=== PATIENT | male | born 1955 | race Caucasian/White ===

== ENCOUNTER 2024-06-19 09:43 | Outpatient (AMB) | payer BC, SELFPAY ==
[2024-06-19 10:27] VITALS: BMI 32.3
--- NOTE | 2024-06-19 10:27 | HO.SPINEOV ---
Vital Signs 06/19/24 10:27 Height 5 ft 10 in Weight 225 lb BMI 32.3 Intake Visit Reasons: moderate to severe spinal stenosis/low back Intake Note: Mr. Rock is here today c/o severe back pain. Facility Maintenance Mechanic Required: No Allergies No Known Allergies Allergy (Verified 06/19/24 10:28) Physical Exam Vital Signs: BMI result Body Mass Index 32.3 Assessment & Plan Assessment & Plan (1) Lumbar stenosis with neurogenic claudication: Code(s): M48.062 - Spinal stenosis, lumbar region with neurogenic claudication Category: Medical Plan Dear colleague Thank you for referring Brennon Soto to the office today with a chief complaint of bilateral leg pain. HPI: This 68-year-old male has a history of progressive bilateral leg pain for 3 years. Pain is predominantly on the left leg where it radiates from the back to the front of his thigh and sometimes down to his lower leg and foot. The right side is also affected. The pain is severe with walking and standing and improves when he sits down. Laying down makes the symptoms worse as well. He denies weakness or numbness. The following conservative treatment options were tried without success antiinflammatories, tylenol, physical therapy, acupuncture and cortisone shots PMH: Aortic valve replacement 1 year ago, bladder cancer 18 years ago, hypertension Medications: Aspirin Allergies: NKDA Social history: Nonsmoker. Retired plant mechanic Physical Exam: Pleasant male. He can reproduce the symptoms in the office with standing. The pain radiates from his back to the front of his thighs predominantly. No motor or sensory deficits. Radiological Studies: MRI done at [facility] on 05/30/2024 shows [id number] multilevel spinal stenosis at L2-3, L3-4 and L4-5 causing central and lateral recess stenosis at these levels. Impression/Plan: This 68-year-old male is suffering from neurogenic claudication due to multilevel spinal stenosis. He failed conservative management. The symptoms are interfering with his daily activities. I offered him a decompression of the L2-3, L3-4 and L4-5 levels. He is scheduled for 08/12/2024. He will get preoperative clearance from his guitar repair technician. He will also discontinue aspirin 5 days prior to surgery. Thank you for allowing me to participate in your patients care. total time spent was 50 minutes in counseling ,coordination of plan, personal review of imaging, surgical decision making and subsequent plan Sergio Bejarano MD, PhD Spine Fellowship Trained Neurosurgeon Director, [facility] [place] [facility] Coding Level of Care Code New Pt Level 4 (19717) Diagnoses Lumbar stenosis with neurogenic claudication M48.062
== END 2024-06-19 11:43 | disposition home or self-care (01) ==
PROVIDERS: PCP Internal Medicine; Visit Provider Neurological Surgery
DX: M48.062 Spinal stenosis, lumbar region with neurogenic claudication (principal)
CPT/HCPCS: 99204

== ENCOUNTER 2024-08-12 05:57 | Day surgery (SDC) | payer BC, SELFPAY ==
[2024-07-23 11:15] VITALS: BMI 32.3
--- NOTE | 2024-07-27 14:15 | HO.ANESPROP2 ---
Documented by User: Aria Gauthier NP 07/27/24 14:20 HPI - Anesthesia Eval Consult details Narrative: 69yo M for L2-5 Lumbar decompression Follows [facility] for CAD, s/p TAVR (03/2024). Optimized for surgery per 05/2024 office visit. [facility] Active Problems Active Problems: All Active Problems Lumbar stenosis with neurogenic claudication (Acute) Past Medical History Medical History (Updated 07/23/24 @ 11:15 by Venecia Li RN) Mild ascending aorta dilatation CAD (coronary artery disease) TIA (transient ischemic attack) Elevated cholesterol HTN (hypertension) Gout GERD (gastroesophageal reflux disease) Arthritis Bladder cancer Spinal stenosis Surgical History Surgical History (Updated 07/22/24 @ 09:39 by Venecia Li RN) Hx of cystoscopy History of tonsillectomy and adenoidectomy Hx of cardiac catheterization H/O colonoscopy History of transurethral resection of bladder tumor (TURBT) Hx of aortic valve replacement Social History Social History Are you a primary clinical care coordinator to a significant other at home: No Do you presently have visiting nurse or other home services: No Patient Tobacco Use Status: Former Tobacco user Tobacco use type: Cigarette Years Smoked: 18 Use of substances other than those prescribed or required for medical reasons: Yes Substance Use Type Other:: edibles-advised to hold 3-5 days pre-op Substance Use Frequency: Daily Have you been hit, kicked, punched, or otherwise hurt by someone within the past year? If so, by whom?: No Spiritual Healthcare Practices: none Zoroastrian Healthcare Practices: Amish Cultural Healthcare Practices: none Are you DNR?: No Advance Directives: No ( is primary contact) Advance Directives Information Provided: Yes (as above noted) Advance Directives on File: No Recently lost weight without trying: No Eating poorly because of decreased appetite: No Nutrition Risks: No Nutritional Risk Poor oral hygiene: No Meds Allergies Allergy/AdvReac Type Severity Reaction Status Date / Time No Known Allergies Allergy Verified 06/19/24 10:28 Home Medications ?Medication ?Instructions ?Recorded ?Confirmed ?Last Taken ?Type aspirin 81 mg tablet,delayed 81 mg PO QAM 07/22/24 07/23/24 08/04/24 History release atorvastatin 80 mg tablet 80 mg PO BEDTIME 07/22/24 07/22/24 08/11/24 History chlorthalidone 25 mg tablet 25 mg PO BEDTIME 07/22/24 07/23/24 08/11/24 History diclofenac sodium 25 mg 25 mg PO BID PRN Pain 07/22/24 07/22/24 08/04/24 History tablet,delayed release lisinopril 40 mg tablet 40 mg PO QAM 07/22/24 07/23/24 08/11/24 History omeprazole 20 mg capsule,delayed 20 mg PO BEDTIME 07/22/24 07/23/24 08/11/24 History release Exam Height,Weight and Vital Signs: Height 5 ft 10 in Weight 102.058 kg Pertinent Lab Results Pertinent Lab Results: CBC and BMP 01/2024 from outside facility [place]. BUN/Creat slight elevated @ 27/1.6 Narrative Narrative: EKG 05/2024 NSR Incomplete RBBB LAD ECHO 04/2024 Nml LV size and function EF 60-65% Asc aorta upper limits of nml @ 3.8cm Nml diastolic function Borderline LAE Nml functioning TAVR in aortic position - peak velocity 2.2, mean gradient 11mmHg Assessment and Plan Assessment Anesthesia Assessment: Chart Reviewed Documented by User: Becca Moreno MD 08/12/24 08:08 [facility] Past Medical History Medical History (Updated 07/23/24 @ 11:15 by Venecia Li RN) Mild ascending aorta dilatation CAD (coronary artery disease) TIA (transient ischemic attack) Elevated cholesterol HTN (hypertension) Gout GERD (gastroesophageal reflux disease) Arthritis Bladder cancer Spinal stenosis Family History Family history of problems with anesthesia: No Surgical History Surgical History (Updated 07/22/24 @ 09:39 by Venecia Li RN) Hx of cystoscopy History of tonsillectomy and adenoidectomy Hx of cardiac catheterization H/O colonoscopy History of transurethral resection of bladder tumor (TURBT) Hx of aortic valve replacement History of Problems with Anesthesia: No Social History Social History Are you a primary clinical care coordinator to a significant other at home: No Do you presently have visiting nurse or other home services: No Patient Tobacco Use Status: Former Tobacco user Tobacco use type: Cigarette Years Smoked: 18 Use of substances other than those prescribed or required for medical reasons: Yes Substance Use Type Other:: edibles-advised to hold 3-5 days pre-op Substance Use Frequency: Daily Have you been hit, kicked, punched, or otherwise hurt by someone within the past year? If so, by whom?: No Spiritual Healthcare Practices: none Zoroastrian Healthcare Practices: Amish Cultural Healthcare Practices: none Are you DNR?: No Advance Directives: No ( is primary contact) Advance Directives Information Provided: Yes (as above noted) Advance Directives on File: No Recently lost weight without trying: No Eating poorly because of decreased appetite: No Nutrition Risks: No Nutritional Risk Poor oral hygiene: No Meds Allergies Allergy/AdvReac Type Severity Reaction Status Date / Time No Known Allergies Allergy Verified 06/19/24 10:28 Home Medications ?Medication ?Instructions ?Recorded ?Confirmed ?Last Taken ?Type aspirin 81 mg tablet,delayed 81 mg PO QAM 07/22/24 07/23/24 08/04/24 History release atorvastatin 80 mg tablet 80 mg PO BEDTIME 07/22/24 07/22/24 08/11/24 History chlorthalidone 25 mg tablet 25 mg PO BEDTIME 07/22/24 07/23/24 08/11/24 History diclofenac sodium 25 mg 25 mg PO BID PRN Pain 07/22/24 07/22/24 08/04/24 History tablet,delayed release lisinopril 40 mg tablet 40 mg PO QAM 07/22/24 07/23/24 08/11/24 History omeprazole 20 mg capsule,delayed 20 mg PO BEDTIME 07/22/24 07/23/24 08/11/24 History release Exam Airway Mallampati Class: II (missing a couple teeth, 2 top, 1 bottom laterally) TM Dist: >3cm Neck ROM: Full Heart: rrr Lungs: cta Assessment and Plan Assessment Anesthesia Assessment: Anesthesia Plan Discussed Final Anesthetic Review Family History of Problems with Anesthesia: No History of Problems with Anesthesia: No NPO: Yes ASA Class: III Final Preanesthetic Review: No Changes in Pt Med Stat, Meds/Allgs Chart Reviewed and Consent Obtained/Reviewed Patient Risk: Intermediate Procedure Risk: Intermediate Anesthetic Plan Anesthetic Plan: GA Disposition: Standard PACU
--- NOTE | ~2024-08-12 | FL_ITS ---
EXAMINATION: FL GUIDANCE ONLY HISTORY: l2-5 decompression COMPARISON: None available. TECHNIQUE: Fluoroscopy time: 7.1 seconds. Cumulative Dose: 7.5523 mGy. DAP: 3.2851 mGym2 Images: 2. FINDINGS: Fluoroscopic spot films of the lumbar spine performed in the lateral projection demonstrate probes directed toward the L4-5 and L2-3 levels from posterior approaches. FL/FL guidance in OR IMPRESSION: Fluoroscopy during procedure. Please see procedure report for additional information. Electronically signed by: Hitesh May MD 08/13/2024 08:54 AM QUAN
[2024-08-12] MEDS: methocarbamoL 750 MG TABLET PO (06:18)
[2024-08-12] MEDS: Gabapentin 300 MG CAPSULE PO (06:19)
[2024-08-12 06:33] VITALS: BP 149/85; PULSE 107; RESP 18; TEMP 36.4; O2SAT 96; BMI 31.5
[2024-08-12] MEDS: Lactated Ringers 1,000 ML 100 ML IVCONT (06:33)
--- NOTE | 2024-08-12 07:04 | MHC.SHP ---
Pre-Procedural Eval Section A - 24 Hr Update-Section A only Date of Service: 08/12/24 Section B - Complete if H&P > 30 days Chief Complaint: Spinal stenosis, lumbar region with neurogenic Allergies: Allergies Allergy/AdvReac Type Severity Reaction Status Date / Time No Known Allergies Allergy Verified 06/19/24 10:28 Review of Systems Sugical H&P ROS: Negative: Constitution, Cardiovascular, Respiratory, Neurological, Psychiatric, Hem-Onc, Allergic/Immunologic, Gastrointestinal, Genitourinary, Musculoskeletal, Integumentary, Endocrine and Eyes/Ears/Nose/Throat Exam Surgical H&P Exam: Not Evaluated: HEENT, Not Evaluated: Heart, Not Evaluated: Lungs, Not Evaluated: Extremities, Not Evaluated: Abdomen, Not Evaluated: Skin and Not Evaluated: Neurological Exam Comment: The patient is awake, alert, in no acute distress. Proposed surgical incision site is clean and dry without signs of recent trauma. Plan Diagnosis/Plan: Unchanged I have reviewed the history and physical and performed a pertinent physical examination on my patient. No changes have occurred unless specified. plan remains the same, L2-3, L3-4, L4-5 lumbar decompression Time Spent With Patient Time: Total time managing care of this patient today _15__ minutes.
--- NOTE | 2024-08-12 09:25 | P.OP_ITS ---
Operative Note Operative Note Date of Service: 08/12/24 Narrative: Preoperative Diagnosis: L2-3, L3-4, L4-5 spinal stenosis/lateral recess stenosis/neural foraminal stenosis Operation: L2-3, L3-4 and L4-5 Laminotomy, Partial facetectomy and foraminotomy with use of microscope Consent Informed Consent was obtained for this operation. I have explained the nature, purpose and benefits of the operation. I have discussed the risks and benefit of the operation including possible complications or adverse events with patient/family. Alternative(s) were discussed with the patient with their relative benefits and risks as well as the consequences of not accepting the operation were included in obtaining consent. Surgeon: FLORIN MERAZ MD, PHD Procedure Assisted By: Arturo Stallworth Description of Procedure This 69-year-old male is suffering from bilateral leg pain with the right side is much more affected than the left side. MRI shows moderate stenosis at L2-3, L3-4 and L4-5. The patient was offered a decompression. The procedure complications were explained. The patient was consented. The patient was brought to the operating room and endotracheally intubated. The patient was turned in prone position on the Atif frame. Prep and drape was done followed by timeout. The Physician employment assistant provided access. A mid lumbar incision was made followed by release of the paravertebral muscle on the right side to expose the L2-L5 laminae and facet joints. An intraoperative x-ray was obtained to confirm the correct levels. The microscope was brought in. I took over the procedure. The high-speed drill was used to do a right L4-5 laminotomy until flavum ligament was reached. A #2 Kerrison was used to expand the laminotomy near flush to the pedicles and to include a partial facetectomy. The flavum ligament was opened and resected with a #3 Kerrison to decompress the underlying thecal sac. Large amount of epidural fat was encountered. The flavum ligament was removed to decompress the lateral recess and the exiting L5 nerve root. Patient was turned contralaterally after which the spinous process was undercut in order to decompress the contralateral side. A long nerve hook could be easily passed along the medial side of the pedicles as a sign of adequate decompression. Then attention was turned to the L3-4 level where a similar procedure was performed with similar findings. Again a large amount of epidural fat was encountered. The bilateral L4 nerve roots were decompressed in the lateral recess. Finally the L2-3 level was decompressed. A spondylolisthesis could be palpated. The exiting nerve root was followed and decompressed of his trajectory bilaterally. The microscope was removed. Hemostasis was done. The physician employment assistant close the incision in 2 layers. Steri-Strips were used to approximate incision. An OpSite with Tegaderm was used to cover the incision. All sponge needle counts were correct. Patient was extubated and transported in stable is to recovery room. Anesthesia: General Estimated Blood Loss (ml): 40 mL Complications: None Duration of Surgery: 1 hour 35 Minutes Postoperative Plan: Discharge to home
--- NOTE | 2024-08-12 09:36 | PM.DS ---
DS: Providers Provider Date of Service: 08/12/24 Date of discharge: 08/12/24 Primary care physician: Darwin Montanez MD DS: Summary Time Attestation Discharge Coordination Time (in mins): 14 Quality: Safe Use of Opioids Does Pt have an Active Cancer Diagnosis on the Problem List?: No Quality: Stroke Does the patient have a stroke diagnosis?: No Physical Exam Vital Signs: Vital Signs: Last Vital Signs Temp 97.5 F 08/12/24 06:33 Pulse 107 H 08/12/24 06:33 Resp 18 08/12/24 06:33 BP 149/85 H 08/12/24 06:33 Pulse Ox 96 08/12/24 06:33 O2 Del Method Room Air 08/12/24 06:33 BMI result Body Mass Index 31.5 Discharge Plan Discharge Patient Disposition: Home, Self-Care Referrals: Darwin Montanez MD [Primary Care Provider] - 1 Week Discharge Medications: New oxycodone 5 mg tablet 5 mg PO Q6H PRN (Reason: pain (scale score 7-10)) Qty: 30 0RF Rx Instructions: Partial Fill upon patient request. Continued atorvastatin 80 mg Tablet 80 mg PO BEDTIME chlorthalidone 25 mg Tablet 25 mg PO BEDTIME aspirin 81 mg Tablet,Delayed Release (Dr/Ec) 81 mg PO QAM diclofenac sodium 25 mg Tablet,Delayed Release (Dr/Ec) 25 mg PO BID PRN (Reason: Pain) omeprazole 20 mg Capsule,Delayed Release(Dr/Ec) 20 mg PO BEDTIME lisinopril 40 mg Tablet 40 mg PO QAM Discharge Orders: Discharge Order (Routine); Ordered 08/12/24 Ordered By: Arturo Stanford Diet: Advance to usual diet Activity on Discharge: As tolerated Activity Restrictions/Additional Instructions: After your spinal surgery we ask you to observe the following restrictions/guidelines: Activity: It is normal to feel some discomfort as you increase your activity, but that will improve with time. We ask you avoid heavy lifting or acitivities that cause pain. As a general rule, 8lbs is a safe limit for lifting right after surgery. Walk as much as you feel comfortable but not to exhaustion. You will feel extra tired the first few days after surgery. Stay well hydrated. It is OK to walk up and down stairs You may return to driving when you are off narcotics (such as vicodin, oxycodone, dilaudid, etc), and you are back to normal functional capacity. If you have any concerns please check with office before driving. Return to work is specific to each patient and each surgery, so please speak with your doctor/PA at first follow up. Please bring paperwork such as FMLA at that time if you need it filled out. Medications: We recommend you take 1,000mg Tylenol every 8 hours for the first few weeks after surgery, if you do not have any liver issues and can tolerate this medication. Do not exceed 4,000mg daily. We will give you a short supply of narcotics after surgery (usually one weeks worth). If you need more please call the office but do not use more than prescribed. You will need to give our office 48 hours notice if you need narcotics refilled and we do not fill narcotics on weekends or evenings. If you are on a narcotic, it is a good idea to take a stool softener such as colace or senna to avoid constipation If you take blood thinner such as aspirin, Plavix, Coumadin, Effient, Eliquis etc for conditions such as Afib, DVT, Pulmonary embolus, coronary disease, stents etc please speak with your surgeon about specific details as to when you can resume these medications. You can resume NSAIDs on post op day 1 (eg: Motrin, Naproxen, etc). Follow up: Please call the office, , after surgery to arrange a 3 week follow up for wound check. Wound Care: You may remove your dressing on the first day after surgery. ?You may ?leave open to air. Please do not remove the steri strips underneath. they will fall off on their own in one week. IT IS NORMAL FOR THE WOUND TO OOZE OR BE BLOODY FOR A FEW DAYS AFTER SURGERY. ?IF THIS HAPPENS JUST PLACE NEW DRESSING OVER IT TO AVOID STAINING CLOTHES. You may shower on post op day # 1 We ask that you do not let the water soak the wound. If it does get wet, just towel dry lightly. Please do not scrub your incision or place any type of chemical/ointment on the wound. No tub baths, pools or jacuzzis for one month. If you have any leaking or redness from your wound, or fevers, please call the office. Print Language: [place]er
[2024-08-12 09:43] VITALS: BP 141/78; PULSE 84; RESP 16; TEMP 36.1; O2SAT 97
[2024-08-12 09:45] VITALS: BP 134/77; PULSE 81; RESP 16; O2SAT 96
[2024-08-12 09:50] VITALS: BP 121/68; PULSE 81; RESP 16; O2SAT 96
[2024-08-12 09:55] VITALS: BP 138/73; PULSE 80; RESP 16; O2SAT 96
[2024-08-12 10:10] VITALS: BP 128/77; PULSE 78; RESP 16; TEMP 36.1; O2SAT 94
== END 2024-08-12 11:03 | disposition home or self-care (01) ==
PROVIDERS: PCP Internal Medicine; Visit Provider Neurological Surgery
PROC: (CPT 63047; principal; 2024-08-12 07:30)
DX: M48.062 Spinal stenosis, lumbar region with neurogenic claudication (principal); M79.605 Pain in left leg; M79.604 Pain in right leg; I10 Essential (primary) hypertension; I25.10 Atherosclerotic heart disease of native coronary artery without angina pectoris; E78.5 Hyperlipidemia, unspecified; Z95.2 Presence of prosthetic heart valve; Z85.51 Personal history of malignant neoplasm of bladder; Z92.21 Personal history of antineoplastic chemotherapy; Z92.3 Personal history of irradiation; Z86.73 Personal history of transient ischemic attack (TIA), and cerebral infarction without residual deficits; Z79.82 Long term (current) use of aspirin; Z79.899 Other long term (current) drug therapy; Z87.891 Personal history of nicotine dependence
CPT/HCPCS: 63047; 63048 ×2; J0131; J0690; J1100; J2003; J2250; J2371; J2405; J2704; J3010

== ENCOUNTER → 2024-08-12 05:57 | Outpatient (BNV) | payer BC, SELFPAY | PROVIDERS: PCP Internal Medicine; Visit Provider Neurological Surgery | DX: M48.062 Spinal stenosis, lumbar region with neurogenic claudication (principal) | CPT/HCPCS: 63047; 63048; 99499 ==

== ENCOUNTER 2024-09-04 13:34 | Outpatient (AMB) | payer BC, SELFPAY ==
--- NOTE | 2024-09-04 14:24 | A.SPINEOV_ITS ---
Intake Visit Reasons: 1st post op Intake Note: Mr. Rock is here today for his 1st post op. Climatology Teacher Required: No Allergies No Known Allergies Allergy (Verified 09/04/24 14:25) Assessment & Plan Assessment & Plan (1) Status post lumbar spine surgery for decompression of spinal cord: Code(s): Z98.890 - Other specified postprocedural states Category: Surgical Plan dear colleague, On 09/04/2024, I saw for 1st postoperative visit Brennon Rock. he is status post L2-L5 lumbar decompression 3 weeks ago. His left leg numbness is gone. He initially experienced more right leg pain postoperatively but this is also coming down. He is able to walk longer distances than preoperatively. Overall he is quite satisfied with the current outcome and the fact that he has further improving. On inspection, the incision is healed. I would like to follow-up in 6 weeks for 2nd postoperative visit. Thank you for allowing me take care of your patient. Sergio Bejarano MD, PhD Spine Fellowship Trained Neurosurgeon Director, [facility] [place] [facility] Coding Level of Care Code Global (14478) Diagnoses Status post lumbar spine surgery for decompression of spinal cord Z98.890
== END 2024-09-04 14:41 | disposition home or self-care (01) ==
PROVIDERS: PCP Internal Medicine; Visit Provider Neurological Surgery
DX: Z98.890 Other specified postprocedural states (principal)
CPT/HCPCS: 99024

== ENCOUNTER → 2024-09-04 13:34 | Outpatient (BNVA) | payer BC, SELFPAY | PROVIDERS: PCP Internal Medicine; Visit Provider Neurological Surgery ==

== ENCOUNTER 2024-10-21 10:41 | Outpatient (AMB) | payer BC, SELFPAY ==
--- NOTE | 2024-10-21 10:45 | HO.SPINEOV ---
Intake Visit Reasons: 2nd post op Intake Note: Mr. Rock is here today for his 2nd post op. Apprentice Electrician Required: No Allergies No Known Allergies Allergy (Verified 09/04/24 14:25) Assessment & Plan Assessment & Plan (1) Status post lumbar spine surgery for decompression of spinal cord: Code(s): Z98.890 - Other specified postprocedural states Category: Surgical Plan: Dear colleague, On 10/21/2024, I saw for 2nd postoperative visit Brennon Rock. He underwent an L2-3, L3-4 and L4-5 lumbar decompression through a right side approach in August of this year. Postoperatively, the left-sided leg pain disappeared but he continues to have pain in his right groin anterior thigh and knee with sometimes his leg giving out of him. The symptoms are better than preoperatively but still preventing him from doing activities such as walking for prolonged period of times. I think it would be best to order a postop MRI with contrast to see if there was ongoing right-sided compression of the L4 or L5 nerve root. The patient will return after the MRIs done. Thank you for allowing me take care of your patient. Sergio Bejarano MD, PhD Spine Fellowship Trained Neurosurgeon Director, [facility] [place] [facility] (2) Lumbar stenosis with neurogenic claudication: Code(s): M48.062 - Spinal stenosis, lumbar region with neurogenic claudication Category: Medical Plan c Orders: Orders MR lumbar spine wo/w con Today M48.062 - Spinal stenosis, lumbar region with neurogenic claudication, Z98.890 - Other specified postprocedural states Coding Level of Care Code Global (91741) Diagnoses Status post lumbar spine surgery for decompression of spinal cord Z98.890 Lumbar stenosis with neurogenic claudication M48.062
== END 2024-10-21 11:27 | disposition home or self-care (01) ==
LOC: HO.HNS 10:41
PROVIDERS: PCP Internal Medicine; Visit Provider Neurological Surgery
DX: Z98.890 Other specified postprocedural states (principal); M48.062 Spinal stenosis, lumbar region with neurogenic claudication
CPT/HCPCS: 99024

== ENCOUNTER → 2024-10-21 10:41 | Outpatient (BNVA) | payer BC, SELFPAY | PROVIDERS: PCP Internal Medicine; Visit Provider Neurological Surgery ==

== ENCOUNTER → 2024-10-30 10:48 | Outpatient (BNV) | payer BC, SELFPAY | PROVIDERS: Visit Provider Radiology Diagnostic Radiology | DX: M47.816 Spondylosis without myelopathy or radiculopathy, lumbar region (principal) | CPT/HCPCS: 72158 ==

== ENCOUNTER 2024-10-30 10:51 | Outpatient (REF) | payer BC, SELFPAY ==
--- NOTE | ~2024-10-30 | MR_ITS ---
EXAMINATION: MR LUMBAR SPINE WITH AND WITHOUT CONTRAST CLINICAL INFORMATION: Other specified postprocedural states. Decompression surgery in August, persistent symptoms right greater than left sciatica/radiculopathy. COMPARISON: MRI from outside institution [facility] 05/30/2024. TECHNIQUE: Multiplanar multisequence MR imaging of the lumbar spine was done both before and after the administration of 10 mL IV Gadavist. Examination was performed on a 1.5 Dian Siemens magnet, utilizing standard sequences. FINDINGS: -There has been interval right hemilaminotomies and microdiscectomies at L2-3, L3-4, and L4-5, with expected postsurgical enhancement in the laminotomy sites and along the right paraspinous soft tissues. -Beginning at the superior endplate of L3, there is circumferential dural enhancement and mild thickening, spanning to the inferior endplate of L4, with ventral epidural enhancement spanning L5-S1. -There is a fluid collection in the midline dorsal epidural space L3-4 level, in communication with the right hemilaminotomy at L3-4, with the peripherally enhancing fluid collection measuring 0.9 x 1.0 x 1.8 cm (AP, TRV, CC) (series 13, image 10; series 12, image 33). This is consistent with an epidural abscess. This is resulting in moderate to severe central canal stenosis. See below. CORONAL ALIGNMENT: -Normal. SAGITTAL ALIGNMENT: -Straightening of the normal lordosis. -2 mm degenerative type anterolisthesis of L1 on L2. -4 mm degenerative type retrolisthesis L2 on L3. -Trace degenerative anterolisthesis L4 on L5. -Alignment is otherwise anatomic. LUMBOSACRAL JUNCTION: -Normal. There are 5 ovk-xct-kgywunc lumbar-type vertebral bodies. VERTEBRAL BODIES/BONE MARROW: -Postoperative changes as discussed above. -Minimal edematous endplate changes at L2-3 with intermixed fatty endplate change. -Mild edematous endplate changes present oriented to the right at L4-5 and L5-S1, degenerative in appearance. Prominent fatty type endplate changes at L4-5. -No compression deformities. There are scattered Schmorl's nodes in the endplates. -No abnormal endplate enhancement. DISCS: -No abnormal disc enhancement or high signal identified. -Severe loss of disc height and signal at L2-3, L4-5, and L5-S1. -Moderate loss at L1-2, and mild loss at L3-4. SPINAL CANAL: -No abnormal developmental findings. CONUS MEDULLARIS: -Terminates at inferior endplate of L1. Morphology and signal is normal. INTRADURAL NERVE ROOTS: - No abnormal intradural nerve root enhancement identified. -Dorsal epidural 0.9 x 1.0 x 1.8 cm peripherally enhancing abscess suspected at L3-4 as discussed above. -Beginning at the superior endplate of L3, there is circumferential dural enhancement and mild thickening, spanning to the inferior endplate of L4, with ventral epidural enhancement spanning L5-S1. No additional epidural abscess identified. Axial Disc Space Images: T12-L1: No central canal narrowing. Mild to moderate facet arthropathy bilaterally. No neural foraminal narrowing. L1-L2: Shallow concentric disc bulge is present, with moderate bilateral left greater than right hypertrophic degenerative facet changes. There is mild central canal stenosis, mild bilateral subarticular recess stenosis, and mild right greater than left neural foraminal stenosis. L2-L3: Right hemilaminotomy with enhancing soft tissue in the laminotomy defect. There is an concentric broad-based disc osteophytic ridge complex present, with severe disc degeneration and associated 4 mm of retrolisthesis at this level. There are moderate hypertrophic degenerative facet changes bilaterally. Despite the surgical changes, there is moderate central canal stenosis present, severe bilateral subarticular recess stenosis, and severe bilateral neural foraminal impingement. L3-L4: Right hemilaminotomy with enhancing dorsal fluid collection in the midline connecting with the laminotomy defect. This is resulting in severe compression of the central thecal sac, just below the disc level. There is severe central canal stenosis at the disc level. There is severe bilateral subarticular recess encroachment. There is moderate to severe bilateral neural foraminal encroachment. L4-L5: Right hemilaminotomy with enhancing soft tissue in the laminotomy defect. Concentric disc osteophytic ridge complex present, with moderate to severe hypertrophic degenerative facet arthropathy, and resultant moderate to severe central canal stenosis, severe bilateral subarticular recess stenosis, and severe bilateral neural foraminal impingement. L5-S1: Shallow disc osteophytic ridge complex present, with mild to moderate hypertrophic degenerative facet changes bilaterally. There is mild posterior ligamentous infolding. There is mild central canal stenosis, mild bilateral subarticular recess stenosis, and severe bilateral neural foraminal impingement. IMAGED SI JOINTS: -Moderate degenerative arthrosis bilaterally with partial ankylosis of the left SI joint. PARAVERTEBRAL AND INCLUDED EXTRASPINAL SOFT TISSUES: -Postoperative enhancement and edema in the right paraspinous soft tissues at L2-3, L3-4, L4-5. -No additional abnormal fluid collection. MR/MR lumbar spine wo/w con IMPRESSION: 1. Interval right hemilaminotomies and microdiscectomies at L2-3, L3-4, and L4-5. Associated enhancement and edema along the surgical tracts. 2. There is a dorsal midline epidural abscess at L3-4, communicating with the right hemilaminotomy, measuring 0.9 x 1.0 x 1.8 cm, with peripheral enhancement. This is resulting in moderate to severe central canal stenosis at this level. 3. There is abnormal dural thickening and enhancement beginning at the superior endplate of L3, and terminating at the inferior endplate of L4. 4. There is no definite MR evidence of developing discitis. There is no additional epidural fluid collection. There is no abnormal nerve root enhancement. 5. Multilevel advanced spondylosis as described above. Above findings relayed to Dr. Bejarano via secure text at 9:01 AM, 11/03/2024, with findings understood. Electronically signed by: Jaleel Liang MD 11/03/2024 09:20 AM EDT
[2024-10-30] MEDS: gadobutroL 10 ML VIAL IVPUSH (11:55)
== END 2024-10-30 10:52 | disposition home or self-care (01) ==
LOC: HO.MRI 10:51
PROVIDERS: Visit Provider Neurological Surgery
DX: M48.062 Spinal stenosis, lumbar region with neurogenic claudication (principal); Z98.890 Other specified postprocedural states
CPT/HCPCS: 72158; A9585

== ENCOUNTER 2024-11-20 14:58 | Outpatient (AMB) | payer BC, SELFPAY ==
--- NOTE | 2024-11-20 15:37 | A.SPINEOV_ITS ---
Intake Visit Reasons: Discuss results of MRI Intake Note: Mr. Rock is here today to discuss result of his MRI. 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 He is status post 3 level lumbar decompression L2-3, L3-4 and L4-5 on 08/12/2024. His left-sided leg symptoms completely disappeared. His right leg symptoms significantly improved but remained bothersome, especially the right groin. He states that his symptoms have further improved since the last time I saw him. He does intermittently have radiation down both posterior buttocks and thighs. We decided to repeat the MRI of the lumbar spine due to the ongoing right-sided symptoms. The MRI report mentioned that it is suspicious for an epidural abscess L3-4. The patient clinical progression is absolutely not suspicious for an epidural abscess. The MRI shows severe compression of the spinal canal due to a cystic type process. I would not be surprised if this is representing a large synovial cyst. We had a long discussion of what the next steps would be. The best plan in my opinion would be to schedule him for a re-exploration L3-4 to remove the extradural epidural mass after confirming with a repeat MRI that the size of the abnormality has not decreased. The goal of surgery would be to determine the etiology of the lesion and to further improve his ongoing symptoms. The surgery will be scheduled for 12/31/2024 and we will order an MRI 1 week prior to the procedure to determine if the surgery is necessary. I spent 30 minutes in his consult to review imaging and discussing plan of care. Orders: Orders MR lumbar spine wo/w con 12/24/24 G95.89 - Other specified diseases of spinal cord, Z98.890 - Other specified postprocedural states Coding Level of Care Code Est Pt Level 4 (61303) Diagnoses Lumbar epidural mass G95.89 Lumbar stenosis with neurogenic claudication M48.062
== END 2024-11-20 16:05 | disposition home or self-care (01) ==
LOC: HO.HNS 14:58
PROVIDERS: Visit Provider Neurological Surgery
DX: G95.89 Other specified diseases of spinal cord (principal); M48.062 Spinal stenosis, lumbar region with neurogenic claudication
CPT/HCPCS: 99214

== ENCOUNTER → 2024-11-20 14:58 | Outpatient (BNVA) | payer BC, SELFPAY | PROVIDERS: Visit Provider Neurological Surgery ==

== ENCOUNTER → 2024-12-24 10:21 | Outpatient (BNV) | payer BC, SELFPAY | PROVIDERS: Visit Provider Radiology Diagnostic Radiology | DX: M48.061 Spinal stenosis, lumbar region without neurogenic claudication (principal) | CPT/HCPCS: 72158 ==

== ENCOUNTER 2024-12-24 10:28 | Outpatient (REF) | payer BC, SELFPAY ==
--- NOTE | ~2024-12-24 | MR_ITS ---
EXAMINATION: MR LUMBAR SPINE WITH AND WITHOUT CONTRAST CLINICAL INFORMATION: Other specified diseases of spinal cord. Decompression surgery in August, persistent symptoms right greater than left sciatica/radiculopathy. Epidural mass/cyst probable synovial cyst on the right at L3-4. COMPARISON: MRI lumbar with contrast 10/30/2024. MRI from outside institution [facility] 05/30/2024. TECHNIQUE: Multiplanar multisequence MR imaging of the lumbar spine was done both before and after the administration of 10 mL IV Gadavist. Examination was performed on a 1.5 Dian Siemens magnet, utilizing standard sequences. FINDINGS: -Redemonstration of right hemilaminotomies and microdiscectomies at L2-3, L3-4, and L4-5, with expected postsurgical enhancement in the laminotomy sites and along the right paraspinous soft tissues. -Previously seen circumferential epidural enhancement has near completely resolved. Most likely postoperative. -There is a persistent fluid collection in the right paramedian dorsal epidural space L3-4 level, in communication with the right hemilaminotomy at L3-4, with the peripherally enhancing fluid collection again measuring 0.9 x 1.0 x 1.8 cm (AP, TRV, CC) (series 13, image 10; series 12, image 33). This was previously thought to represent a postoperative abscess although given clinical presentation is more likely a synovial cyst. -There is a smaller right-sided synovial cyst at L4-5, measuring approximately 4 x 2 x 4 mm. (Series 10, image 29; series 6, image 10). CORONAL ALIGNMENT: -Normal. SAGITTAL ALIGNMENT: -Straightening of the normal lordosis. -Stable 2 mm degenerative type anterolisthesis of L1 on L2. -Stable 4 mm degenerative type retrolisthesis L2 on L3. -Stable Trace degenerative anterolisthesis L4 on L5. -Alignment is otherwise anatomic. LUMBOSACRAL JUNCTION: -Normal. There are 5 nbq-ssf-gwlmmpl lumbar-type vertebral bodies. VERTEBRAL BODIES/BONE MARROW: -Postoperative changes as discussed above. -Similar minimal edematous endplate changes at L2-3 with intermixed fatty endplate change. -Cyst similar mild edematous endplate changes present oriented to the right at L4-5 and L5-S1, degenerative in appearance. Prominent fatty type endplate changes at L4-5. -No compression deformities. There are scattered Schmorl's nodes in the endplates. -No abnormal endplate enhancement. DISCS: -No abnormal disc enhancement or high signal identified. -Severe loss of disc height and signal at L2-3, L4-5, and L5-S1. -Moderate loss at L1-2, and mild loss at L3-4. SPINAL CANAL: -No abnormal developmental findings. CONUS MEDULLARIS: -Terminates at inferior endplate of L1. Morphology and signal is normal. INTRADURAL NERVE ROOTS: - No abnormal intradural nerve root enhancement identified. -Dorsal epidural 0.9 x 1.0 x 1.8 cm peripherally enhancing abscess suspected at L3-4 as discussed above. -Beginning at the superior endplate of L3, there is circumferential dural enhancement and mild thickening, spanning to the inferior endplate of L4, with ventral epidural enhancement spanning L5-S1. No additional epidural abscess identified. Axial Disc Space Images: T12-L1: No central canal narrowing. Mild to moderate facet arthropathy bilaterally. No neural foraminal narrowing. No significant changes. L1-L2: Shallow concentric disc bulge is present, with moderate bilateral left greater than right hypertrophic degenerative facet changes. There is mild central canal stenosis, mild bilateral subarticular recess stenosis, and mild right greater than left neural foraminal stenosis. No significant changes. L2-L3: Right hemilaminotomy with enhancing soft tissue in the laminotomy defect. There is an concentric broad-based disc osteophytic ridge complex present, with severe disc degeneration and associated 4 mm of retrolisthesis at this level. There are moderate hypertrophic degenerative facet changes bilaterally. Despite the surgical changes, there is moderate central canal stenosis present, severe bilateral subarticular recess stenosis, and severe bilateral neural foraminal impingement. No significant changes. L3-L4: Right hemilaminotomy with enhancing dorsal fluid collection/synovial cyst in the right para midline, in continuity with the laminotomy defect. This is resulting in severe compression of the central thecal sac, just below the disc level. There is severe central canal stenosis at the disc level. There is severe bilateral subarticular recess encroachment. There is moderate to severe bilateral neural foraminal encroachment. No significant changes. L4-L5: Right hemilaminotomy with enhancing soft tissue in the laminotomy defect. Small peripherally enhancing 2 x 4 x 2 mm right synovial cyst, appearing larger than previously. Concentric disc osteophytic ridge complex present, with moderate to severe hypertrophic degenerative facet arthropathy, and resultant moderate to severe central canal stenosis, severe bilateral subarticular recess stenosis, and severe bilateral neural foraminal impingement. L5-S1: Shallow disc osteophytic ridge complex present, with mild to moderate hypertrophic degenerative facet changes bilaterally. There is mild posterior ligamentous infolding. There is mild central canal stenosis, mild bilateral subarticular recess stenosis, and severe bilateral neural foraminal impingement. IMAGED SI JOINTS: -Moderate degenerative arthrosis bilaterally with partial ankylosis of the left SI joint. PARAVERTEBRAL AND INCLUDED EXTRASPINAL SOFT TISSUES: -Postoperative enhancement and edema in the right paraspinous soft tissues at L2-3, L3-4, L4-5. -No additional abnormal fluid collection. MR/MR lumbar spine wo/w con IMPRESSION: 1. Redemonstration of right hemilaminotomies and microdiscectomies at L2-3, L3-4, and L4-5. Associated enhancement and edema along the surgical tracts. 2. There is a dorsal midline persistent cystic collection at L3-4, communicating with the right hemilaminotomy, measuring 0.9 x 1.0 x 1.8 cm, with peripheral enhancement. This is resulting in moderate to severe central canal stenosis at this level. Given stability this is likely a synovial cyst as opposed to an abscess. 3. There is a slightly larger more apparent right sided synovial cyst at L4-5 measuring 4 x 2 x 4 mm. There is moderate to severe central canal stenosis and severe bilateral subarticular recess stenosis at this level. 4. Previously seen abnormal circumferential dural enhancement spanning L3-L4 has largely resolved. This was presumably postoperative. 5. Otherwise stable multilevel advanced spondylosis as described above. Electronically signed by: Jaleel Liang MD 12/24/2024 02:00 PM EDT
[2024-12-24] MEDS: gadobutroL 10 ML VIAL IVPUSH (12:00)
== END 2024-12-24 10:29 | disposition home or self-care (01) ==
LOC: HO.MRI 10:28
PROVIDERS: Visit Provider Neurological Surgery
DX: G95.89 Other specified diseases of spinal cord (principal); Z98.890 Other specified postprocedural states
CPT/HCPCS: 72158; A9585

== ENCOUNTER 2025-03-03 13:41 | Outpatient (AMB) | payer BC, SELFPAY ==
--- NOTE | 2025-03-03 14:00 | A.SPINEOV_ITS ---
Intake Visit Reasons: Discuss Surgery Intake Note: Mr. Rock is here today to discuss surgery. Allergies No Known Allergies Allergy (Verified 09/04/24 14:25) Assessment & Plan Assessment & Plan (1) Lumbar epidural mass: Code(s): G95.89 - Other specified diseases of spinal cord Category: Medical Plan Brennon comes in today for a follow-up visit with questions regarding his upcoming surgery. To recap he is scheduled for an L3-4 lumbar decompression with removal / exploration of likely synovial cyst on 03/24/25. He reports that he had fairly significant difficulties with ambulation after his last decompression surgery, in his concerned that he may have difficulties once more after surgery. He wished to discuss this. I answered all questions that he had to the best of my ability, and provided him with information regarding the postoperative healing course. He understands that he likely will need about 3 weeks off of activity aside from basic ADLs and walking as he heals from his upcoming surgery. In addition to this, he wished to review his lumbar MRI again and see what the cyst looks like. He asked several questions regarding the adjacent segments, and questioned whether or not he needed larger/different surgery. Given the overall size of the assumed synovial cyst measured at about 18 mm on MRI imaging, I believe this is most likely causative of his current pain. When describing his pain he states that his left posterior buttocks is sore and he still has some left-sided posterior leg pain. He also has bilateral shooting pains into his groin. The patient has been given risk and benefits of surgery including but not limited to infection, hematoma, nerve injury, durotomy, weakness, bowel/bladder injury, persistent pain. We also discussed the option to continue with conservative treatment and patient wishes to proceed with surgery. They are aware they should stop NSAIDs 7 days prior to surgery. All questions were answered to the best of our ability. If there is anything about this patients medical history that we have overlooked or concerns you have about us proceeding with surgery we would appreciate any input you can offer. Arturo Bejarano MD,PhD [facility] Coding Level of Care Code Global (18269) Diagnoses Lumbar epidural mass G95.89
--- OUTSIDE RECORDS SUMMARY | 2025-03-03 14:30 | XMS_ITS | Encounter Summary ---
Author Organization [facility] Address [address] [place] [id number] Phone Care Team Providers Care Assistant Professor Of Music Name Role Phone Yoli Murray COOLING PAN TENDER Unavailable [phone] Aaliyah Garg DECORATING CONSULTANT Unavailable [phone] Darwin Montanez MD Unavailable [phone] Jaden oBles MD Unavailable Unavailable Darwin Montanez MD Primary Care Provider [phone] Darwin Montanez MD Unavailable [phone] Nitza Lopez RN Unavailable [phone] Encounter Details Date Type Department Care Team (Late st Contact Info) Description 01/30/2019 Procedure Pass [address] [address] Social History Tobacco Use Types Packs/Day Years Used Date Smoking Tobacco: Never Smokeless Tobacco: Never Alcohol Use Standard Drinks/Week Comments Yes 5 (1 standard drink = 0.6 oz pur e alcohol) Sex and Gender Information Value Date Recorded Sex Assigned at Male 05/27/2020 11:04 AM EST Legal Sex Male 9:58 PM EDT Gender Identity Male 05/27/2020 11:04 AM EST Sexual Orientation Not on file documented as of this encounter Plan of Treatment Upcoming Encounters Date Type Department Care Team (Late st Contact Info) Description 05/22/2024 Procedure Pass [facility] [address] [place] [place] [address] 06/01/2025 9:30 AM EST Appointment [facility] [address] [place] [address] Castillo Valles MD [address] [place] [address] 06/18/2025 10:00 AM EST Office Visit [facility] [address] Floor, [address] [place] [address] Castillo Valles MD [address] [place] [address] 12/01/2025 3:40 PM EDT Office Visit [facility] [address] [place] [phone] Darwin Montanez MD [address] [place] [phone] documented as of this encounter Visit Diagnoses Not on filedocumented in this encounter Additional Health Concerns Infection Onset Date Last Indicated Resolved Time CoV-Risk 03/08/2020 03/09/2020 03/22/2020 1:24 AM EDT documented as of this encounter Care Teams Assistant Professor Of Music Relationship Specialty Start Date End Date Darwin Montanez MD [address] [place] [phone] PCP - General 04/23/17 Yoli Murray NP [address] [place] [phone] Historical LMR Provider 04/22/17 Aaliyah Garg, DECORATING CONSULTANT [address] [place] [id number] Historical LMR Provider 04/22/17 Darwin Montanez MD [address] [place] [address] [place] [address] [email or web address] Historical LMR Provider 04/22/17 Jaden Boles MD Historical LMR Provider 04/22/17 07/15/21 Darwin Montanez MD [address] [place] [address] [place] [phone] [email or web address] Insurance Assigned Provider 10/12/23 Nitza Lopez, RN [address] [place] [address] [email or web address] Lease Picker 02/18/24 03/25/24 documented as of this encounter Additional Source Comments The information contained in this document represents components of the legal health record. It is not the complete legal health record.[facility]
--- OUTSIDE RECORDS SUMMARY | 2025-03-03 14:30 | XMS_ITS | Encounter Summary ---
Author Organization [facility] Address [address] [place] [address] Phone Care Team Providers Care Delivery Driver/Supervisor Name Role Phone Yoli Murray ELECTRIC METER TESTER Unavailable [phone] Aaliyah Garg FRANKFURTER INSPECTOR Unavailable + [phone] Darwin Montanez MD Unavailable [phone] Jaden Boles MD Unavailable Unavailable Darwin Montanez MD Primary Care Provider [phone] Darwin Montanez MD Unavailable [phone] Nitza Lopez RN Unavailable [phone] Reason for Referral * MRI/CAT Scan - Closed Specialty Diagnoses / Procedures Referred By Chaya montez Referred To Contact Radiology Diagnoses Lumbar radiculopathy Procedures MRI Lumbar Spine Santos Lee DO Phone: tel: fax: [email or web address] Referral ID Status Reason Start Date Expiration Date Visits Re quested Visits Authorized [id number] Closed 01/29/2019 02/28/2019 1 1 Encounter Details Date Type Department Care Team (Latest Contact Info) Description 01/30/2019 Ancillary Orders Virtual Department [address] [place] [address] Santos Lee DO [address] [place] [address] [email or web address] Social History Tobacco Use Types Packs/Day Years [...] Info) Description 05/22/2024 Procedure Pass [facility] [address] [place] [address] 06/01/2025 9:30 AM EST Appointment Echo Lab [address] [place] [address] Castillo Valles MD [address] [place] [address] 06/18/2025 10:00 AM EST Office Visit [facility] [address] 3[address] Floor, [address] [place] [address] Castillo Valles MD [address] [place] [address] 12/01/2025 3:40 PM EDT Office Visit [facility] 14 [facility] [address] [place] [address] Darwin Montanez MD 14 [facility] [address] [place] [address] documented as of this encounter Results * MRI LUMBAR SPINE (BONE) WITHOUT CONTRAST (02/09/2019 6:33 PM EDT) Anatomical Region Laterality Modality L-spine Magnetic Resonan ce 02/09/2019 6:35 PM EDT Impressions 02/09/2019 7:01 PM EDT 1. Multilevel degenerative changes as described above. Moderate canal stenosis at L2-L3, L3-L4 and L4-L5. Moderate/severe neuroforaminal stenosis on the left at L5-S1. Moderate neuroforaminal stenosis bilaterally at L2-L3, on the right at L3-L4 and bilaterally at L4-L5. 2. 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 POS - [id number] Narrative 02/09/2019 7:01 PM EDT EXAM: MRI LUMBAR SPINE (BONE) WITHOUT INTRAVENOUS CONTRAST COMPARISON: Radiographs of the lumbar spine on December 03, 2018. Abdomen/pelvis CT on August 16, 2011 HISTORY: Lumbar radiculopathy TECHNIQUE: Exam performed on a 1.5 Dian high-field MRI scanner. Magnetic resonance imaging of the lumbar spine was performed WITHOUT injected contrast using standard department protocols. Sagittal T1, T2 and STIR, axial T1 and T2 sequences were obtained. FINDINGS: ALIGNMENT: Anatomic alignment is maintained. Mild retrolisthesis of L2 over L3. Minimal retrolisthesis of L5 on S1. VERTEBRAL BODIES: Vertebral body heights are maintained. T1 and T2 hyperintense signal involving most of the L5 vertebral body is partially suppressed on the STIR sequence. Mild endplate degenerative changes in the superior endplate of L3 and superior and inferior endplates of L4. INTERVERTEBRAL DISCS: Desiccation changes of all included discs. Loss of disc height is more prominent at L2-L3 and L5-S1. SPINAL CORD/CONUS: Included spinal cord has normal caliber and signal characteristics. The conus terminates normally at L1-L2. Level by level analysis yields the following: L1-2: Mild bulging disc. No significant canal or neuroforaminal stenosis. L2-3: Mild retrolisthesis of L2 on L3 and prominent bulging disc and superimposed central disc protrusion contributes to moderate bilateral neuroforaminal stenosis and moderate canal stenosis. L3-4: Combination of bulging disc eccentric to the left side, hypertrophy of posterior elements and epidural lipomatosis contributes to moderate right neuroforaminal stenosis, mild left neuroforaminal stenosis and moderate canal stenosis. L4-5: Combination of bulging disc, hypertrophy of posterior elements and epidural lipomatosis contributes to moderate canal stenosis and moderate bilateral neuroforaminal stenosis. L5-S1: Combination of minimal retrolisthesis of L5 on S1, marginal osteophytes and bulging disc eccentric to the left side and hypertrophy of posterior elements contributes to moderate/severe left neuroforaminal stenosis and mild right neuroforaminal stenosis. Bulging disc contacts the left L5 traversing nerve root at the level of the neuroforamina. No significant canal stenosis. OTHERS:Visualized portions of the retroperitoneal structures shows partially evaluated right parapelvic renal lesion. Posterior paraspinal soft tissues are unremarkable. Procedure Note Constantino Ruiz MD - 02/09/2019 EXAM: MRI LUMBAR SPINE (BONE) WITHOUT INTRAVENOUS CONTRAST COMPARISON: Radiographs of the lumbar spine on December 03, 2018.Abdomen/pelvis CT on August 16, 2011 HISTORY: Lumbar radiculopathy TECHNIQUE: Exam performed on a 1.5 Dian high-field MRI scanner. Magneticresonance imaging of the lumbar spine was performed WITHOUT injectedcontrast using standard department protocols. Sagittal T1, T2 and STIR,axial T1 and T2 sequences were obtained. FINDINGS: ALIGNMENT: Anatomic alignment is maintained. Mild retrolisthesis of L2over L3. Minimal retrolisthesis of L5 on S1. VERTEBRAL BODIES: Vertebral body heights are maintained. T1 and R1jnpqnqorwlrd signal involving most of the L5 vertebral body is partiallysuppressed on the STIR sequence. Mild endplate degenerative changes inthe superior endplate of L3 and superior and inferior endplates of L4. INTERVERTEBRAL DISCS: Desiccation changes of all included discs. Loss ofdisc height is more prominent at L2-L3 and L5-S1. SPINAL CORD/CONUS: Included spinal cord has normal caliber and signalcharacteristics. The conus terminates normally at L1-L2. Level by level analysis yields the following: L1-2: Mild bulging disc. No significant canal or neuroforaminalstenosis. L2-3: Mild retrolisthesis of L2 on L3 and prominent bulging disc andsuperimposed central disc protrusion contributes to moderate bilateralneuroforaminal stenosis and moderate canal stenosis. L3-4: Combination of bulging disc eccentric to the left side, hypertrophyof posterior elements and epidural lipomatosis contributes to moderateright neuroforaminal stenosis, mild left neuroforaminal stenosis andmoderate canal stenosis. L4-5: Combination of bulging disc, hypertrophy of posterior elements andepidural lipomatosis contributes to moderate canal stenosis and moderatebilateral neuroforaminal stenosis. L5-S1: Combination of minimal retrolisthesis of L5 on S1, marginalosteophytes and bulging disc eccentric to the left side and hypertrophy ofposterior elements contributes to moderate/severe left neuroforaminalstenosis and mild right neuroforaminal stenosis. Bulging disc contacts theleft L5 traversing nerve root at the level of the neuroforamina. Nosignificant canal stenosis. OTHERS:Visualized portions of the retroperitoneal structures showspartially evaluated right parapelvic renal lesion. Posterior paraspinalsoft tissues are unremarkable. IMPRESSION: 1. Multilevel degenerative changes as described above. Moderate canalstenosis at L2-L3, L3-L4 and L4-L5. Moderate/severe neuroforaminalstenosis on the left at L5-S1. Moderate neuroforaminal stenosisbilaterally at L2-L3, on the right at L3-L4 and bilaterally at L4-L5. 2. Abnormal signal intensity of L5 vertebral body likely represents anatypical hemangioma, which was also demonstrated in the prior CT study [id number]. POS - [id number] Santos Lee DO IMG MR XSPECIALTY Final Resu lt documented in this encounter Visit Diagnoses Diagnosis Lumbar radiculopathy Thoracic or lumbosacral neuritis or radiculitis, unspecified Lumbar radiculopathy Thoracic or lumbosacral neuritis or radiculitis, unspecified documented in this encounter Additional Health Concerns Infection Onset Date Last Indicated Resolved Time CoV-Risk 03/08/2020 03/09/2020 03/22/2020 1:24 AM EDT documented as of this encounter Care Teams Delivery Driver/Supervisor Relationship Specialty Start Date End Date Darwin Montanez MD [address] [place] [address] [address] [place] [address] [email or web address] PCP - General 04/23/17 Yoli Murray NP [address] [place] [address] [place] [address] Historical LMR Provider 04/22/17 Aaliyah Garg CNP [address] [place] [address] [place] [address] Historical LMR Provider 04/22/17 Darwin Montanez MD [address] [place] [address] [place] [address] Historical LMR Provider 04/22/17 Jaden Boles MD Historical LMR Provider 04/22/17 07/15/21 Darwin Montanez MD [address] [place] [address] Insurance Assigned Provider 10/12/23 Nitza Lopez RN [address] [place] [address] [email or web address] i[employer] Dbas 02/18/24 03/25/24 documented as of this encounter Additional Source Comments The information contained in this document represents components of the legal health record. It is not the complete legal health record.[facility]
--- OUTSIDE RECORDS SUMMARY | 2025-03-03 14:31 | XMS_ITS | Encounter Summary ---
Author Organization [facility] Address [address] [place] [address] Phone Care Team Providers Care Cement Production Plant Operator Name Role Phone Yoli Murray CHILD PROTECTIVE SERVICES SPECIALIST Unavailable [phone] Aaliyah Garg PREVENTIVE MAINTENANCE COORDINATOR Unavailable [phone] Darwin Montanez MD Unavailable [phone] Darwin Montanez MD Primary Care Provider [phone] Darwin Montanez MD Unavailable [phone] Nitza Lopez RN Unavailable [phone] Encounter Details Date Type Department Care Team (Late st Contact Info) Description 02/13/2022 Procedure Pass [facility], [address] [address] Social History Tobacco Use Types Packs/Day Years [...] Info) Description 05/22/2024 Procedure Pass [facility] [address] [place] [address] 06/01/2025 9:30 AM EST Appointment Echo [facility] [address] [place] [address] Castillo Valles MD [address] [place] [address] 06/18/2025 10:00 AM EST Office Visit [facility] [address] Floor, [address] [place] [address] Castillo Valles MD [address] [place] [address] 12/01/2025 3:40 PM EDT Office Visit [facility] [address] [place] [address] Darwin Montanez MD [address] [place] [address] documented as of this encounter Visit Diagnoses Not on filedocumented in this encounter Additional Health Concerns Assessment Noted Time PHQ-2 Depression Total Score: 1 07/06/20 19 2:52 PM EST documented as of this encounter Care Teams Cement Production Plant Operator Relationship Specialty Start Date End Date Darwin Montanez MD [address] [place] [address] PCP - General 04/23/17 Yoli Murray NP [address] [place] [address] Historical LMR Provider 04/22/17 Aaliyah Garg, MATILDE [address] [place] [address] Historical LMR Provider 04/22/17 Darwin Montanez MD 14 [facility] [address] [place] [address] [email or web address] Historical LMR Provider 04/22/17 Darwin Montanez MD [address] [place] [address] [place] [address] Insurance Assigned Provider 10/12/23 Nitza Lopez, RN [address] [place] [address] [email or web address] iC[employer] Passenger Solicitor 02/18/24 03/25/24 documented as of this encounter Additional Source Comments The information contained in this document represents components of the legal health record. It is not the complete legal health record.[facility]
--- OUTSIDE RECORDS SUMMARY | 2025-03-03 14:31 | XMS_ITS | Encounter Summary ---
Author Organization [facility] Address [address] [place] [address] Phone Care Team Providers Care Energy Trader Name Role Phone Yoli Murray MEDICAL CERTIFICATION SPECIALIST Unavailable [phone] Aaliyah Garg CRAWLER DRAGLINE OPERATOR Unavailable [phone] Darwin Montanez MD Unavailable [phone] Jaden Boles MD Unavailable Unavailable Darwin Montanez MD Primary Care Provider [phone] Darwin Montanez MD Unavailable [phone] Nitza Lopez RN Unavailable [phone] Encounter Details Date Type Department Care Team (Late st Contact Info) Description 06/28/2021 Procedure Pass [facility], Ct Scan - [address] [address] Social History Tobacco Use Types Packs/Day Years [...] on file documented as of this encounter Functional Status * Calculated C-SSRS Risk Score (Lifetime/Recent) Answer Date of Assessment Author No Risk Indicated 06/28/2021 6:54 PM EST Ariadne Merino, JESUS * [place] Suicide Severity Rating Scale (Screener/Recent Self-Report) Question Answer Date of Assessment Author 1. Wish to be (Past 1 Month) No 06/28/2021 6:54 PM EST Ariadne Merino, RN 2. Non-Specific Active Suici zack Thoughts (Past 1 Month) No 06/28/2021 6:54 PM EST Ariadne Merino, RN 6. Suicidal Behavior (Lifetime) No 6:54 PM EST Ariadne Merino, RN documented as of this encounter Plan of Treatment Upcoming Encounters Date Type Department Care Team (Late st Contact Info) Description 05/22/2024 Procedure Pass [facility] [address] [place] [address] 06/01/2025 9:30 AM EST Appointment Echo Lab [address] [place] [address] Castillo Valles MD [address] [place] [address] 06/18/2025 10:00 AM EST Office Visit [facility] [address], [address] [place] [address] Castillo Valles MD [address] [place] [address] 12/01/2025 3:40 PM EDT Office Visit [facility] 14 [facility] [address] [place] [address] Darwin Montanez MD [address] [place] [address] [place] [address] documented as of this encounter Visit Diagnoses Not on filedocumented in this encounter Additional Health Concerns Assessment Noted Time PHQ-2 Depression Total Score: 1 07/06/20 19 2:52 PM EST documented as of this encounter Care Teams Energy Trader Relationship Specialty Start Date End Date Darwin Montanez MD [address] [place] [address] PCP - General 04/23/17 Yoli Murray, JAI [address] [place] [address] Historical LMR Provider 04/22/17 Aaliyah Garg CNP [address] [place] [address] Historical LMR Provider 04/22/17 Darwin Montanez MD [address] [place] [address] Historical LMR Provider 04/22/17 Jaden Boles MD Historical LMR Provider 04/22/17 07/15/21 Darwin Montanez MD [address] [place] [address] Insurance Assigned Provider 10/12/23 Nitza Lopez, JESUS [address] [place] [address] iCMP Production Technician 02/18/24 03/25/24 documented as of this encounter Additional Source Comments The information contained in this document represents components of the legal health record. It is not the complete legal health record.[facility]
--- OUTSIDE RECORDS SUMMARY | 2025-03-03 14:31 | XMS_ITS | Encounter Summary ---
Author Organization [facility] Address [address] [place] [address] Phone Care Team Providers Care Leather Belt Loop Cutter Name Role Phone Yoli Murray FLEXIBLE BABYSITTER Unavailable [phone] Aaliyah Garg MILLING SUPERVISOR Unavailable [phone] Darwin Montanez MD Unavailable [phone] Jaden Boles MD Unavailable Unavailable Darwin Montanez MD Primary Care Provider [phone] Darwin Montanez MD Unavailable [phone] Nitza Lopez RN Unavailable [phone] Encounter Details Date Type Department Care Team (Late st Contact Info) Description 05/10/2021 Procedure Pass [facility] [address] [place] [address] Social History Tobacco Use Types Packs/Day Years [...] Info) Description 05/22/2024 Procedure Pass [facility] [place] [place] [address] 06/01/2025 9:30 AM EST Appointment [facility] [place] [place] [address] Castillo Valles MD [address] [place] [address] 06/18/2025 10:00 AM EST Office Visit [facility] [address] Floor, [address] [place] [address] Castillo Valles MD [address] [place] [address] 12/01/2025 3:40 PM EDT Office Visit [facility] [address] [place] [address] Darwin Montanez MD [address] [place] [address] documented as of this encounter Visit Diagnoses Not on filedocumented in this encounter Additional Health Concerns Assessment Noted Time PHQ-2 Depression Total Score: 1 07/06/20 19 2:52 PM EST documented as of this encounter Care Teams Leather Belt Loop Cutter Relationship Specialty Start Date End Date Darwin Montanez MD [address] [place] [address] PCP - General 04/23/17 Yoli Murray, FLEXIBLE BABYSITTER [address] [place] [address] Historical LMR Provider 04/22/17 Aaliyah Garg, MILLING SUPERVISOR [address] [place] [address] Historical LMR Provider 04/22/17 Darwin Montanez MD [address] [place] [address] [place] [address] [email or web address] Historical LMR Provider 04/22/17 Jaden Boles MD Historical LMR Provider 04/22/17 07/15/21 Darwin Montanez MD [address] [place] [address] [place] [address] [email or web address] Insurance Assigned Provider 10/12/23 Nitza Lopez RN [address] [place] [address] [email or web address] iCMP Senior Electrical Controls Engineer 02/18/24 03/25/24 documented as of this encounter Additional Source Comments The information contained in this document represents components of the legal health record. It is not the complete legal health record.[facility]
--- OUTSIDE RECORDS SUMMARY | 2025-03-03 14:31 | XMS_ITS | Encounter Summary ---
Author Organization [facility] Address [address] [place] [address] Phone Care Team Providers Care Dry Lumber Grader Name Role Phone Yoli Murray DYE BECK REEL OPERATOR Unavailable [phone] Aaliyah Garg SLD TEACHER Unavailable [phone] Darwin Montanez MD Unavailable [phone] Jaden Boles MD Unavailable Unavailable Darwin Montanez MD Primary Care Provider [phone] Darwin Montanez MD Unavailable [phone] Nitza Lopez RN Unavailable [phone] Encounter Details Date Type Department Care Team (Late st Contact Info) Description 01/12/2021 Procedure Pass [facility] [address] [place] [address] Social History Tobacco Use Types Packs/Day Years [...] Info) Description 05/22/2024 Procedure Pass [facility] [address] [place] [address] 06/01/2025 9:30 AM EST Appointment [facility] [address] [place] [address] Castillo Valles MD [address] [place] [address] 06/18/2025 10:00 AM EST Office Visit [facility] [address], [address] [place] [address] Castillo Valles MD [address] [place] [address] 12/01/2025 3:40 PM EDT Office Visit [facility] Internal Medicine [address] [place] [address] Darwin Montanez MD [address] [place] [address] documented as of this encounter Visit Diagnoses Not on filedocumented in this encounter Additional Health Concerns Assessment Noted Time PHQ-2 Depression Total Score: 1 07/06/20 19 2:52 PM EST documented as of this encounter Care Teams Dry Lumber Grader Relationship Specialty Start Date End Date Darwin Montanez MD [address] [place] [address] PCP - General 04/23/17 Yoli Murray, DYE BECK REEL OPERATOR [address] [place] [address] Historical LMR Provider 04/22/17 Aaliyah Garg, SLD TEACHER [address] [place] [address] Historical LMR Provider 04/22/17 Darwin Montanez MD [address] [place] [address] [place] [address] [email or web address] Historical LMR Provider 04/22/17 Jaden Boles MD Historical LMR Provider 04/22/17 07/15/21 Darwin Montanez MD [address] [place] [address] [place] [address] [email or web address] Insurance Assigned Provider 10/12/23 Nitza Lopez RN [address] [place] [address] [email or web address] iCMP Intermediate Designer 02/18/24 03/25/24 documented as of this encounter Additional Source Comments The information contained in this document represents components of the legal health record. It is not the complete legal health record.[facility]
--- OUTSIDE RECORDS SUMMARY | 2025-03-03 14:31 | XMS_ITS | Encounter Summary ---
Author Organization [facility] Address [address] [place] [address] Phone Care Team Providers Care Concreting Supervisor Name Role Phone Yoli Murray DEEP FAT FRY COOK Unavailable [phone] Aaliyah Garg PETROLEUM GEOLOGY FACULTY MEMBER Unavailable [phone] Darwin Montanez MD Unavailable [phone] Darwin Montanez MD Primary Care Provider [phone] Darwin Montanez MD Unavailable [phone] Nitza Lopez RN Unavailable [phone] Encounter Details Date Type Department Care Team ([facility] Contact Info) Description 11/01/2022 Procedure Pass [facility] [address] [place] [address] Social History Tobacco Use Types Packs/Day Years Used Date Smoking Tobacco: Never Smokeless Tobacco: Never Alcohol Use Standard Drinks/Week Comments Yes 5 (1 standard drink = 0.6 oz pur e alcohol) Education Answer Date Recorded Are you interested in more education? Not on joy e 11/01/2022 Are you concerned about learning? Not on file 11/01/2022 No 11/01/2022 No 11/01/2022 Sex and Gender Information Value Date Recorded Sex Assigned at Male 05/27/2020 11:04 AM EST Legal Sex Male 9:58 PM EDT Gender Identity Male 05/27/2020 11:04 AM EST Sexual Orientation Not on file documented as of this encounter Plan of Treatment Upcoming Encounters Date Type Department Care Team ([facility] Contact Info) Description 05/22/2024 Procedure Pass [facility] [address] [place] [address] 06/01/2025 9:30 AM EST Appointment Echo Lab [address] [place] [address] Castillo Valles MD [address] [place] [address] 06/18/2025 10:00 AM EST Office Visit [facility] [address] [place] [address] Dr [address] Floor, [address] [place] [address] Castillo Valles MD [address] [place] [address] 12/01/2025 3:40 PM EDT Office Visit [facility] [address] [place] [address] Darwin Montanez MD [address] [place] [address] documented as of this encounter Visit Diagnoses Not on filedocumented in this encounter Additional Health Concerns Assessment Noted Time PHQ-2 Depression Total Score: 1 07/06/20 19 2:52 PM EST documented as of this encounter Care Teams Concreting Supervisor Relationship Specialty Start Date End Date Darwin Montanez MD [address] [place] [address] PCP - General 04/23/17 Yoli Murray NP [address] [place] [address] Historical LMR Provider 04/22/17 Aaliyah Garg, MATILDE [address] [place] [address] [email or web address] Historical LMR Provider 04/22/17 Darwin Montanez MD [address] [place] [address] [place] [address] Historical LMR Provider 04/22/17 Darwin Montanez MD [address] [place] [address] [place] [address] [email or web address] Insurance Assigned Provider 10/12/23 Nitza Lopez, RN [address] [place] [address] [email or web address] iC[employer] Corn Miller 02/18/24 03/25/24 documented as of this encounter Additional Source Comments The information contained in this document represents components of the legal health record. It is not the complete legal health record.[facility]
--- OUTSIDE RECORDS SUMMARY | 2025-03-03 14:31 | XMS_ITS | Encounter Summary ---
Author Organization [facility] Address [facility] [employer] [address] [address] Phone Care Team Providers Care Corporate Buyer Name Role Phone Murray [place] BUILDINGS AND GROUNDS DIRECTOR Unavailable [phone] Aaliyah Garg TRANSPORTATION ENGINEER Unavailable [phone] Darwin Montanez MD Unavailable [phone] Darwin Montanez MD Primary Care Provider [phone] Darwin Montanez MD Unavailable [phone] Encounter Details Date Type Department Care Team (Late st Contact Info) Description 05/27/2024 Procedure Pass [facility], [address] [address] Social History Tobacco Use Types Packs/Day Years Used Date Smoking Tobacco: Never Smokeless Tobacco: Never Alcohol Use Standard Drinks/Week Comments Yes 5 (1 standard drink = 0.6 oz pur e alcohol) Education Answer Date Recorded Are you interested in more education? Not on joy e 11/01/2022 Are you concerned about learning? Not on file 11/01/2022 No 11/01/2022 No 11/01/2022 Digital Access Answer Date Recorded No 11/30/2022 No 11/30/2022 Reliable internet access at home? Not on file 11/30/2022 Device with a working camera? Not on file Intimate Partner Violence Answer Date R ecorded Denied Basic Needs Not on file 11/14/2023 In the past 12 months have y ou been in a relationship with a person who hurts, threatens, or tries to control you? No 11/14/2023 Worried food would run out Not on file 11/13 In the past 12 months have y ou been in a relationship with a person who hurts, threatens, or tries to control you? No 11/14/2023 Sex and Gender Information Value Date Recorded Sex Assigned at Male 05/27/2020 11:04 AM EST Legal Sex Male 9:58 PM EDT Gender Identity Male 05/27/2020 11:04 AM EST Sexual Orientation Not on file documented as of this encounter Last Filed Vital Signs Vital Sign Reading Time Taken Comments Blood Pressure - - Pulse - - Temperature - - Respiratory Rate - - Oxygen Saturation - - Inhaled Oxygen Concentration - - Weight 99.8 kg (220 lb) 05/28/2024 3:14 PM EST Height 175.3 cm (5' 9 ) 05/28/2024 3:14 PM EST Body Mass Index 32.49 05/28/2024 3:14 PM EST documented in this encounter Plan of Treatment Upcoming Encounters Date Type Department Care Team (Late st Contact Info) Description 05/22/2024 Procedure Pass [facility] [address] [place] [address] 06/01/2025 9:30 AM EST Appointment [facility] [address] [place] [address] Castillo Valles MD [address] [place] [address] [email or web address] 06/18/2025 10:00 AM EST Office Visit [facility] [address] Floor, [address] [place] [address] Castillo Valles MD [address] [place] [address] 12/01/2025 3:40 PM EDT Office Visit [facility] 14 [facility] [address] [place] [address] Darwin Montanez MD 14 [facility] [address] [place] [address] documented as of this encounter Visit Diagnoses Not on filedocumented in this encounter Additional Health Concerns Assessment Noted Time PHQ-9 Depression Total Score: 2 07/04/20 23 12:49 PM EST PHQ-2 Depression Total Score: 0 11/14/19 24 10:20 AM EDT documented as of this encounter Care Teams Corporate Buyer Relationship Specialty Start Date End Date Darwin Montanez MD [address] [place] [address] [place] [address] PCP - General 04/23/17 Yoli Murray NP [address] [place] [address] Historical LMR Provider 04/22/17 Aaliyah Garg CNP [address] [place] [address] Historical LMR Provider 04/22/17 Darwin Montanez MD [address] [place] [address] Historical LMR Provider 04/22/17 Darwin Montanez MD [address] [place] [address] Insurance Assigned Provider 10/12/23 documented as of this encounter Additional Source Comments The information contained in this document represents components of the legal health record. It is not the complete legal health record.[facility]
--- OUTSIDE RECORDS SUMMARY | 2025-03-03 14:31 | XMS_ITS | Encounter Summary ---
Author Organization [facility] Address [address] [place] [address] Phone Care Team Providers Care Thread Drawer Name Role Phone MurrayYoli CAKE ICER Unavailable [phone] Aaliyah Garg TEXTILE BAG SEWER Unavailable [phone] Darwin Montanez MD Unavailable Jaden Boles MD Unavailable Unavailable Darwin Montanez MD Primary Care Provider [phone] Darwin Montanez MD Unavailable [phone] Nitza Lopez RN Unavailable [phone] Encounter Details Date Type Department Care Team (Late st Contact Info) Description 06/25/2019 Transcribe Orders [facility] [address] [place] [address] Darwin Montanez MD [address] [place] [address] [place] [address] [phone] [email or web address] Social History Tobacco Use Types Packs/Day Years [...] Info) Description 05/22/2024 Procedure Pass [facility] [address] [place] [address] 06/01/2025 9:30 AM EST Appointment [facility] [address] [place] [address] Castillo Valles MD [address] [place] [address] 06/18/2025 10:00 AM EST Office Visit [facility] [address] [place] [address] Dr [address] Floor, [address] [place] [address] Castillo Valles MD [address] [place] [address] 12/01/2025 3:40 PM EDT Office Visit [facility] [address] [place] [address] Darwin Montanez MD [address] [place] [address] documented as of this encounter Visit Diagnoses Not on filedocumented in this encounter Additional Health Concerns Infection Onset Date Last Indicated Resolved Time CoV-Risk 03/08/2020 03/09/2020 03/22/2020 1:24 AM EDT documented as of this encounter Care Teams Thread Drawer Relationship Specialty Start Date End Date Darwin Montanez MD [address] [place] [address] PCP - General 04/23/17 Yoli Murray, JAI [address] [place] [address] Historical LMR Provider 04/22/17 Aaliyah Garg, TEXTILE BAG SEWER [address] [place] [address] [place] [address] Historical LMR Provider 04/22/17 Darwin Montanez MD [address] [place] [address] Historical LMR Provider 04/22/17 Jaden Boles MD Historical LMR Provider 04/22/17 07/15/21 Darwin Montanez MD [address] [place] [address] [email or web address] Insurance Assigned Provider 10/12/23 Nitza Lopez RN [address] [place] [phone] [email or web address] iC[employer] Business Management Analyst 02/18/24 03/25/24 documented as of this encounter Additional Source Comments The information contained in this document represents components of the legal health record. It is not the complete legal health record.[facility]
--- OUTSIDE RECORDS SUMMARY | 2025-03-03 14:31 | XMS_ITS | Encounter Summary ---
Author Organization [facility] Address [address] [facility] [address] [place] [address] Phone Care Team Providers Care Convention Manager Name Role Phone [place] TERMINAL SUPERVISOR Unavailable [phone] Aaliyah Garg SURVEYING CREW STAKE RUNNER Unavailable [phone] Darwin Montanez MD Unavailable Darwin Montanez MD Primary Care Provider [phone] Darwin Montanez MD Unavailable [phone] Nitza Lopez RN Unavailable [phone] Encounter Details Date Type Department Care Team (Late st Contact Info) Description 03/11/2024 Telephone [facility] [place] [facility] 14 [facility] [address] [place] [address] Darwin Montanez MD 14 [facility] [address] [place], [place] [phone] [email or web address] Social History Tobacco Use Types Packs/Day Years [...] Info) Description 05/22/2024 Procedure Pass [facility] [address] [place] [address] 06/01/2025 9:30 AM EST Appointment [facility] [address] [place] [address] Castillo Valles MD [address] [place] [address] 06/18/2025 10:00 AM EST Office Visit [facility] [address] Floor, [address] [place] [address] Castillo Valles MD [address] [place] [address] 12/01/2025 3:40 PM EDT Office Visit [facility] 14 [facility] [address] [place] [address] Darwin Montanez MD 14 [facility] [address] [place] [address] documented as of this encounter Visit Diagnoses Not on filedocumented in this encounter Additional Health Concerns Assessment Noted Time PHQ-9 Depression Total Score: 2 07/04/20 23 12:49 PM EST PHQ-2 Depression Total Score: 0 11/14/19 24 10:20 AM EDT documented as of this encounter Care Teams Convention Manager Relationship Specialty Start Date End Date Darwin Montanez MD [address] [place] [address] PCP - General 04/23/17 Yoli Murray NP [address] [place] [address] Historical LMR Provider 04/22/17 Aaliyah Garg CNP [address] [place] [address] Historical LMR Provider 04/22/17 Darwin Montanez MD [address] [place] [address] Historical LMR Provider 04/22/17 Darwin Montanez MD [address] [place] [address] Insurance Assigned Provider 10/12/23 Nitza Lopez, JESUS [address] [place] [address] iC[employer] Die Storage Clerk 02/18/24 03/25/24 documented as of this encounter Additional Source Comments The information contained in this document represents components of the legal health record. It is not the complete legal health record.[facility]
--- OUTSIDE RECORDS SUMMARY | 2025-03-03 14:31 | XMS_ITS | Clinical Summary ---
Author Organization [facility] Address [address] [place] [address] Phone Care Team Providers Care Wearing Apparel Assembler Name Role Phone Murray Drury HOOP RIVETING MACHINE OPERATOR HELPER Unavailable [phone] Aaliyah Garg FURNACE OPERATOR OIL OR GAS Unavailable [phone] Bijan Daley MD Unavailable [phone] Bijan Daley MD Primary Care Provider [phone] Bijan Daley MD Unavailable [phone] Allergies No known active allergies Medications omeprazole (PRILOSEC) 20 mg TbEC Take 1 tablet by mouth daily. Active aspirin 81 mg chewable tablet Take 1 tablet (81 mg total) by mouth daily. 1 Active atorvastatin (LIPITOR) 80 MG tabletIndications :Hypercholesterol emia TAKE ONE TABLET BY MOUTH AT BEDTIME 90 tablet 1 5 Active lisinopril (PRINIVIL,ZESTRIL ) 40 MG tabletIndications :Essential hypertension TAKE ONE TABLET BY MOUTH EVERY DAY 90 tablet 3 5 Active allopurinol (ZYLOPRIM) 100 MG tabletIndications :Gout, unspecified cause, unspecified chronicity, unspecified site Take 2 tablets (200 mg total) by mouth daily. 180 tablet 3 5 Active chlorthalidone (HYGROTON) 25 MG tabletIndications :Essential hypertension TAKE ONE TABLET BY MOUTH EVERY DAY 90 tablet 3 5 Active Hospital, Clinic, or Other Facility Administered Medication Ordered Dose Route Frequency Start Date End Date Status sodium chloride (NS) 0.9 % syringe flush 3 mL 3 mL IV As needed 10/12/2022 Active Active Problems Problem Noted Date Diagnosed Date Obesity, Class II, BMI 35-39.9 07/05/2021 Left arm numbness 06/28/2021 Assessment & Plan (06/28/2021 4:58 PM EST): The patient continues to describe some mild numbness in his left arm and left chest. No current pain. He has nonspecific findings on EKG with no significant delta change in high-sensitivity troponin values. No focal neurologic deficit on exam with NIHSS currently 0. Differential diagnosis includes TIA/CVA, uncontrolled hypertension, anginal equivalent, and cervical radiculopathy. CT of the head does not show acute hemorrhage, mass, or large infarct. CT angiogram of the head and neck does not show any retrievable thrombus or stenosis. There are severe degenerative changes in the visualized spine. 1. Observation on the medical floor, continuous EKG monitoring, neurochecks every 4 hours 2. MRI of the brain to evaluate for acute ischemia 3. Echocardiogram with bubble study to evaluate for valvular disease, cardiomyopathy, thrombus, or PFO; consider Cardiology evaluation if any wall motion abnormalities seen on Echo 4. Check ESR/CRP, TSH, and hemoglobin A1c 5. Continue aspirin 81 mg daily and Plavix 75 mg daily per Teleneurology 6. Increase statin, start atorvastatin 80 mg nightly, LDL 120 7. Permissive hypertension over the first 48 hours (SBP goal: <200, hold antihypertensives while SBP within goal); plan to gradually lower to long-term goal <140/90 after initial 48 hours 8. Teleneurology input appreciated, will follow up after above studies are resulted 9. PT/OT evaluations 10. The patient has passed a bedside nursing swallow evaluation and will be allowed to have a cardiac prudent diet Nonrheumatic aortic valve stenosis 11/11/2017 Assessment & Plan (03/30/2022 7:59 AM EDT): Reports occasional shortness of breath with exertion particularly in the heat. We will repeat his echocardiogram in 6 months and see him in follow-up after that. Fasting hyperglycemia 11/11/2017 GERD (gastroesophageal reflux disease) 8 Assessment & Plan (06/28/2021 4:37 PM EST): Continue PPI as prescribed. History of bladder cancer 11/11/2017 Essential hypertension 11/11/2017 Assessment & Plan (03/30/2022 7:59 AM EDT): Blood pressures are well controlled today 122/80. He is on chlorthalidone 25 mg daily, quinapril 40 mg daily. He was encouraged to continue these medications. He should follow heart healthy diet including low sodium and continue to exercise as much as he can due to spinal stenosis. He really does not watch what he eats and based on his lipid panel I have asked him to start cleaning up his diet and effort to improve this. Assessment & Plan (06/28/2021 4:33 PM EST): Initial blood pressure uncontrolled at 209/109. Blood pressure now controlled after labetalol 10 mg IV in the emergency department. Resume quinapril after period of permissive hypertension. Renal function is stable. Hypercholesterolemia 11/11/2017 Assessment & Plan (03/30/2022 7:59 AM EDT): His LDL was a little more elevated than it had been at 105, his triglycerides were also more elevated at 243. We did discuss his diet today and that he should eat a more heart healthy diet in an effort to help improve his cholesterol. He will remain on atorvastatin 80 mg daily. Assessment & Plan (06/28/2021 4:31 PM EST): Continue statin medication as outlined, at higher dose in the setting of possible CVA. LDL noted to be 120 today. Overweight 11/11/2017 Snoring 11/11/2017 Personal history of gout 11/11/2017 Resolved Problems Problem Noted Date Diagnosed Date Resolved Date Gout 11/11/2017 11/11/2017 Encounters Date Type Department Care Team Description 12/19/2024 Refill [facility] [address] [place] [address] [place] [address] Bijan Daley MD Medication Refill (Chlorthalidone) from Last 3 Months Immunizations Immunization Administration Dates Next Due COVID-19 (Pre-04/29) Filomena Vaccine, rS-Ad26, P F 09/17/2020 INFLUENZA, SPLIT VIRUS, TRIVALENT W/ PRESERVATIV E IM 04/11/2016 Influenza High-Dose Quadrivalent Preservative Fr ee IM 06/29/2021 Influenza Quadrivalent MDCK Preservative Free IM 06/14/2022 Influenza Quadrivalent Preservative Free IM 03/08,05/07/2018 Influenza Quadrivalent w/ Preservative IM 2016 Td (adult) 5 Lf Tetanus Toxoid, PF, Adsorbed Tdap 11/29/2022,05/06/2014 Zoster recombinant 08/18/2021 Family History Medical History Relation Comments Gout Brother 1 Gout Brother 2 Gout Brother 3 Stroke Father Pancreatic cancer Mother Relation Status Comments Brother 1 Alive Brother 2 Alive Brother 3 Alive Father Mother Social History Tobacco Use Types Packs/Day Years Used Date Smoking Tobacco: Former Cigarettes Smokeless Tobacco: Never Tobacco Cessation:Counseling Given: Not Answered Alcohol Use Standard Drinks/Week Comments Yes 3 (1 standard drink = 0.6 oz pur e alcohol) 1-2 weekly Child or Family Care Answer Date Record ed Do you have problems with on e of the following making it difficult for you to work, study, or receive health care? No 11/23/2024 Education Answer Date Recorded Are you interested in more education? Not on joy e 11/01/2022 Are you concerned about learning? Not on file 11/01/2022 No 11/01/2022 No 11/01/2022 Food Answer Date Recorded Within the past 6 months we worried whether our food would run out before we got money to buy more. Never True 11/23/2024 Within the past 6 months the food we bought just didn't last and we didn't have enough money to get more. Never True Residential Stability Answer Date Recor ded What is your housing situation today? I have umu sing 11/23/2024 How many times have you move d in the past 12 months? Zero (I did not move) 11/23/2024 Paying for Meds Answer Date Recorded Do you have trouble paying for medicines? No 11/23/2024 Paying Utility Bills Answer Date Record ed Do you have trouble paying your heating or elect ricity bill? No 11/23/2024 Transportation Answer Date Recorded Has the lack of transportati on kept you from medical appointments or from getting medications? No 11/23/2024 Digital Access Answer Date Recorded No 11/23/2024 Yes 11/23/2024 Do you have reliable internet access at home? Ye s 11/23/2024 Do you have a device (e.g., phone, tablet, computer) with a working camera? Yes 11/23/2024 Intimate Partner Violence Answer Date R ecorded Are you denied basic needs s uch as food, clothing, or medical care? No 11/23/2024 In the past 12 months have y ou been in a relationship with a person who hurts, threatens, or tries to control you? No 11/23/2024 Are you denied basic needs s uch as food, clothing, or medical care? No 11/23/2024 In the past 12 months have y ou been in a relationship with a person who hurts, threatens, or tries to control you? No 11/23/2024 Sex and Gender Information Value Date Recorded Sex Assigned at Male 05/27/2020 11:04 AM EST Legal Sex Male 9:58 PM EDT Gender Identity Male 05/27/2020 11:04 AM EST Sexual Orientation Not on file Last Filed Vital Signs Vital Sign Reading Time Taken Comments Blood Pressure 106/60 11/23/2024 3:49 PM EDT Pulse 94 11/23/2024 3:49 PM EDT Temperature 36.4 C (97.6 F) 11/23/2024 3:49 PM EDT Respiratory Rate 22 11/13/2024 10:3 6 AM EDT Oxygen Saturation 98% 11/23/2024 3:49 PM EDT Inhaled Oxygen Concentration - - Weight 102.4 kg (225 lb 12.8 oz) 11/23/2024 3:49 PM EDT Height 177.8 cm (5' 10 ) 11/23/2024 3:49 PM EDT Body Mass Index 32.4 11/23/2024 3:49 PM EDT Plan of Treatment Upcoming Encounters Date Type Department Care Team (Late st Contact Info) Description 05/22/2024 Procedure Pass Echo Lab [address] [place] [address] 06/01/2025 9:30 AM EST Appointment Echo [facility] [place] [address] [place] [address] Castillo Valles MD [address] [place] [phone] 06/18/2025 10:00 AM EST Office Visit [facility] [address] Floor, [address] [place] [address] Castillo Valles MD [address] [place] [phone] 12/01/2025 3:40 PM EDT Office Visit [facility] [place] [facility] [address] [facility] [address] [place] [address] Bijan Daley MD 14 [facility] [address] [place] [phone] Health Maintenance Due Date Last Done Comments SMOKING Hx and SMOKELESS TOBACCO SCREENING 1966 COLOGUARD 1998 FIT TEST 1998 FOBT 1998 SIGMOIDOSCOPY 1998 VIRTUAL COLONOSCOPY 1998 PNEUMOCOCCAL VACCINES (50+ years) (1 of 1 - PCV) 2003 RSV VACCINE (1 - Risk 60-74 years 1-dose series) 2013 ABDOMINAL AORTIC ANEURYSM (AAA) SCREENING 2018 ZOSTER VACCINES (2 of 2) 10/13/2021 08/18/2021 COVID-19 VACCINE ( season) 2024 06/14/2022, 01/24/2022, 07/05/2021, Additional history exists BLOOD PRESSURE 05/26/2025 11/23/2024 CREATININE LEVEL 11/17/2025 11/17/2024, , 04/15/2023, Additional history exists POTASSIUM LEVEL 11/17/2025 11/17/2024, 01/05, 04/15/2023, Additional history exists DEPRESSION SCREENING 11/23/2025 11/23/2024, 07/04/20 LIPID PANEL 01/21/2029 01/22/2024, 10/07, 10/29/2022, Additional history exists Adult Td,Tdap Booster 11/29/2032 11/29/2022 , 05/06/2014, 06/05/2005 COLONOSCOPY 11/13/2034 11/13/2024, 04/01/2009 COLORECTAL CANCER SCREENING 11/13/2034 HEPATITIS C SCREENING Completed 10/29/2022, 023 HEPATITIS A VACCINES Aged Out No long er eligible based on patient's age to complete this topic HIB VACCINES Aged Out No longer eligi ble based on patient's age to complete this topic MENINGOCOCCAL VACCINES (ACWY) Aged Out No longer eligible based on patient's age to complete this topic MENINGOCOCCAL VACCINES (B) Aged Out N o longer eligible based on patient's age to complete this topic Medical Devices Implanted Type Area Activities Director Scouting Device Identifier Shelf Expiration Date Model / Serial / Lot Aortic Health Valve Procedures Procedure Name Priority Date/Time Associated Diagnosis Comments BASIC METABOLIC PANEL Routine 11/17/2024 9:44 AM EDT Essential hypertension Stage 3 chronic kidney disease, unspecified whether stage 3a or 3b CKD ENDOSCOPY, COLON 11/13/2024 9:59 AM EDT LIPID PANEL Routine 01/22/2024 9:48 AM EDT Essential hypertension Hypercholesterolemia Status post transcatheter aortic valve replacement (TAVR) using bioprosthesis HEPATITIS C ANTIBODY, QUALITATIVE Routine 10/29/2022 8:23 AM EDT Need for hepatitis C screening test from Last 3 Months or Most Recently Relevant to Health Maintenance Results * (ABNORMAL) Basic metabolic panel (11/17/2024 9:44 AM EDT) SODIUM 137 133 - 146 mmol/L [facility] CHLORIDE 99 96 - 108 mmol/L [facility] POTASSIUM 3.6 3.3 - 5.1 mmol/L [facility] Comment:Specimen slightly he molyzed, result may be falsely elevated. CO2 23 21 - 35 mmol/L [facility] BUN 29(H) 6 - 19 mg/dL [facility] CREATININE 1.10 0.5 - 1.5 mg/dL [facility] GLUCOSE 99 70 - 99 mg/dL [facility] CALCIUM 9.7 8.4 - 10.3 mg/dL [facility] EGFR 72 >59 mL/min/1.7 3m2 [facility] Comment:Estimated glomerular filtration rate calculated using the CKD-EPI refit equation. ANION GAP 19 10 - 20 mmol/L [facility] Blood 11/17/2024 9:44 AM EDT 11/17/2024 9:57 AM EDT us Bijan Daley MD LAB BLOOD ORDERABLES Final R esult [facility] [address] [place] [address] * ENDOSCOPY, COLON (11/13/2024 9:59 AM EDT) Narrative Transcriptions Ishaan Reardon MD - 11/13/2024 9:59 AM EDT [facility] Patient Name: Brennon Ren Attending MD:: ISHAAN REARDON MD, Procedure Date: 11/13/2024 9:59 AM Date of : 1955 Age: 69 Admit Type: Outpatient Gender: Male Room: [facility] Referring MD: BIJAN DALEY MD Exam Type: Colonoscopy Indications: Screening for colorectal malignant neoplasm, Last colonoscopy: 2008 Medications: Propofol per Anesthesia Procedure: Informed consent was obtained from the patientafter discussion of the indications, limitations, alternatives, benefits, and risks of the procedure. Risks specifically discussed include but are not limited to medication reactions, missed lesions, bleeding, perforation, or the need for emergent surgery. Throughout the procedure, the patient's blood pressure, pulse, end-tidal CO2, and oxygensaturations were monitored continuously. The Olympus adult variable colonoscope [id number] #4 was introduced through the anus and advanced to the cecum, identified by appendiceal orifice andileocecal valve. The ileocecal valve, appendiceal orifice,and rectum were photographed. The colonoscopy was performed without difficulty. The patient tolerated the procedure well. The quality of the bowel preparation was good. The bowel preparation usedwas GoLYTELY via split dose instruction. Complications: No immediate complications. Estimated blood loss:None. Findings: The perianal and digital rectal examinations were normal. Pertinent negatives include normal prostate (size, shape, and consistency). Internal hemorrhoids were found duringretroflexion. The hemorrhoids were small. Multiple small-mouthed diverticula were found inthe sigmoid colon. Scattered medium-mouthed diverticula were found inthe transverse colon and ascending colon. An 8 mm polyp was found in the rectum. The polypwas sessile. Polypectomy was attempted, initially usinga cold snare. Polyp resection was incomplete withthis device. This intervention then required a different device and polypectomy technique. The edges of the polyp was removed/ablated with a hot snare.Resection and retrieval were complete. An 11 mm polyp was found in the distal sigmoidcolon. The polyp was sessile. The polyp was removed with a hot snare. Resection and retrieval were complete. A small polyp was found in the hepatic flexure. The polyp was sessile. The polyp was removed with acold snare. Resection and retrieval were complete. The exam was otherwise normal throughout theexamined colon. Retroflexion in the right colon was performed. Impression: - Internal hemorrhoids. - Diverticulosis in the sigmoid colon. - Diverticulosis in the transverse colon and in the ascending colon. - One 8 mm polyp in the rectum, removed with a hot snare. Resected and retrieved. - One 11 mm polyp in the distal sigmoid colon,removed with a hot snare. Resected and retrieved. - One small polyp at the hepatic flexure, removedwith a cold snare. Resected and retrieved. Recommendation: - No ibuprofen, naproxen, or other non-steroidal anti-inflammatorydrugs for 2 weeks after polyp removal. - High fiber diet. - If the pathology report reveals adenomatous tissue, then repeat the colonoscopy for surveillance in 3 years. - If the pathology report reveals no adenomatous tissue, then repeatthe colonoscopy for screening purposes in 10 years. ISHAAN REARDON MD 11/13/2024 10:27:34 AM This report has been signed electronically. Number of Addenda: 0 Note Initiated On: 11/13/2024 9:59 AM Procedure Code(s): --- Professional --- 88115, Colonoscopy, flexible; with removal of tumor(s), polyp(s), or other lesion(s) by snare technique --- Technical --- 00940, Colonoscopy, flexible; with removal of tumor(s), polyp(s), or other lesion(s) by snare technique Diagnosis Code(s): --- Professional --- Z12.11, Encounter for screening for malignantneoplasm of colon K64.8, Other hemorrhoids D12.8, Benign neoplasm of rectum D12.5, Benign neoplasm of sigmoid colon D12.3, Benign neoplasm of transverse colon (hepatic flexure or splenic flexure) K57.30, Diverticulosis of large intestine without perforation or abscess without bleeding --- Technical --- Z12.11, Encounter for screening for malignantneoplasm of colon K64.8, Other hemorrhoids D12.8, Benign neoplasm of rectum D12.5, Benign neoplasm of sigmoid colon D12.3, Benign neoplasm of transverse colon (hepatic flexure or splenic flexure) K57.30, Diverticulosis of large intestine without perforation or abscess without bleeding CPT copyright 2021 [employer]. All rights reserved. The codes documented in this report are preliminary and upon master ship reviewmay be revised to meet current compliance requirements. Procedure Date: 11/13/2024 9:59:[address] [place] [address] us Bijan Daley MD GI PROCEDURE ORDERABLES [place] l Result * Lipid panel (01/22/2024 9:48 AM EDT) HDL 50 mg/dL [facility] Comment: Interpretation <40 mg/dL: Low HDL cholesterol (major risk factor for CHD) Greater than or equal to 60 mg/dL: High HDL cholesterol ( negative risk factor for CHD) HDL - cholesterol is affected by a number of factors, e.g. smoking, excerise, hormones, sex and age. CHOLESTEROL 170 0 - 240 mg/dL [facility] TRIGLYCERIDES 141 30 - 160 mg/dL [facility] LDL 92 50 - 129 mg/dL [facility] Comment: LDL levels in terms of risk for coronary heart disease: <100 mg/dL: Optimal 100-129 mg/dL: Near or above optimal 130-159 mg/dL: Borderline high 160-189 mg/dL: High >190 mg/dL: Very High CARDIAC RISK RATIO 3.4 3.4 - 5.0 [facility] Blood 01/22/2024 9:48 AM EDT 01/22/2024 9:58 AM EDT us Bijan Daley MD LAB BLOOD ORDERABLES Final R esult [address] [address] * Hepatitis C antibody, qualitative (10/29/2022 8:23 AM EDT) HCV NON-REACTIV E NON-REACTI VE [facility] Blood 10/29/2022 8:23 AM EDT 10/29/2022 8:31 AM EDT us Aaliyah Garg CNP LAB BLOOD ORDERABLES F inal Result [address] [address] from Last 3 Months or Most Recently Relevant to Health Maintenance Insurance [facility] Advance Directives For more information, please contact: [phone] (9AM - 5PM [facility], Saturday-Saturday) * Full Code (Latest Code Status on File) Date Activated Date Inactivated Comments 06/28/2021 6:05 PM Question Answer Comments Code Status Confirmed With: Patient Care Teams Wearing Apparel Assembler Relationship Specialty Start Date End Date Bijan Daley MD [address] [place] [address] PCP - General 04/23/17 Yoli Murray NP [address] [place] [address] [place] [phone] Historical LMR Provider 04/22/17 Aaliyah Garg, FURNACE OPERATOR OIL OR GAS [address] [place] [address] [place] [address] [email or web address] Historical LMR Provider 04/22/17 Bijan Daley MD [address] [place] [address] [email or web address] Historical LMR Provider 04/22/17 Bijan Daley MD [address] [place] [address] [email or web address] Insurance Assigned Provider 10/12/23 Additional Source Comments The information contained in this document represents components of the legal health record. It is not the complete legal health record.[facility]
--- OUTSIDE RECORDS SUMMARY | 2025-03-03 14:31 | XMS_ITS | Encounter Summary ---
Author Organization [facility] Address [address] [place] [address] Phone Care Team Providers Care Dispatcher Service Chief Name Role Phone Yoli Murray CAPPER MACHINE OPERATOR Unavailable [phone] Aaliyah Garg COACH BUILDER Unavailable [phone] Darwin Montanez MD Unavailable [phone] Jaden Boles MD Unavailable Unavailable Darwin Montanez MD Primary Care Provider [phone] Darwin Montanez MD Unavailable [phone] Nitza Lopez RN Unavailable [phone] Encounter Details Date Type Department Care Team (Late st Contact Info) Description 06/29/2021 Procedure Pass Non-Invasive Cardiology [address] [place] [address] Social History Tobacco Use Types Packs/Day Years [...] Info) Description 05/22/2024 Procedure Pass Echo Lab [address] [place] [address] 06/01/2025 9:30 AM EST Appointment Echo Lab [address] [place] [address] Castillo Valles MD [address] [place] [address] 06/18/2025 10:00 AM EST Office Visit [facility] [address] [place] [address] [address] Floor, [address] [place] [address] Castillo Valles MD [address] [place] [address] 12/01/2025 3:40 PM EDT Office Visit [facility] [address] [place] [phone] Darwin Montanez MD [address] [place] [phone] documented as of this encounter Visit Diagnoses Not on filedocumented in this encounter Additional Health Concerns Assessment Noted Time PHQ-2 Depression Total Score: 1 07/06/20 19 2:52 PM EST documented as of this encounter Care Teams Dispatcher Service Chief Relationship Specialty Start Date End Date Darwin Montanez MD [address] [place] [address] PCP - General 04/23/17 Yoli Murray CAPPER MACHINE OPERATOR [address] [place] [address] Historical LMR Provider 04/22/17 Aaliyah Garg, COACH BUILDER [address] [place] [address] Historical LMR Provider 04/22/17 Darwin Montanez MD [address] [place] [address] [place] [address] [email or web address] Historical LMR Provider 04/22/17 Jaden Boles MD Historical LMR Provider 04/22/17 07/15/21 Darwin Montanez MD [address] [place] [address] [place] [address] [email or web address] Insurance Assigned Provider 10/12/23 Nitza Lopez RN [address] [place] [address] [email or web address] Animal Shelter Clerk 02/18/24 03/25/24 documented as of this encounter Additional Source Comments The information contained in this document represents components of the legal health record. It is not the complete legal health record.[facility]
--- OUTSIDE RECORDS SUMMARY | 2025-03-03 14:31 | XMS_ITS | Encounter Summary ---
Author Organization [facility] Address [address] [place] [address] Phone Care Team Providers Care Wastewater Treatment Engineer Name Role Phone Yoli Murray MANAGER LABOR DELIVERY Unavailable [phone] Aaliyah Garg THERAPIST RADIATION Unavailable [phone] Darwin Montanez MD Unavailable [phone] Darwin Montanez MD Primary Care Provider [phone] Darwin Montanez MD Unavailable [phone] Nitza Lopez RN Unavailable [phone] Reason for Referral * MRI/CAT Scan - Closed Specialty Diagnoses / Procedures Referred By Chaya montez Referred To Contact Radiology Diagnoses Lumbar radiculopathy Procedures MRI Lumbar Spine Santos Lee DO Phone: tel: fax: [email or web address] [address] [address] Phone: tel: Referral ID Status Reason Start Date Expiration Date Visits Re quested Visits Authorized [id number] Closed 03/05/2022 04/04/2022 1 1 Encounter Details Date Type Department Care Team (Latest Contact Info) Description 02/13/2022 Transcribe Orders [facility] Department [address] [place] [address] Santos Lee DO [address] [place] [address] [email or web address] Lumbar radiculopathy (Primary Dx) Social History Tobacco Use Types Packs/Day Years [...] Info) Description 05/22/2024 Procedure Pass [facility] [address] [place] [address] 06/01/2025 9:30 AM EST Appointment Echo Lab [address] [place] [address] Castillo Valles MD [address] [place] [address] 06/18/2025 10:00 AM EST Office Visit [facility] [address] 3rd Floor, [address] [place] [address] Castillo Valles MD [address] [place] [address] 12/01/2025 3:40 PM EDT Office Visit [facility] [place] [facility] 14 [facility] [address] [place] [address] Darwin Montanez MD 14 [facility] [address] [place] [address] documented as of this encounter Results * MRI LUMBAR SPINE (NEURO) WITHOUT CONTRAST (03/05/2022 6:25 PM EDT) Anatomical Region Laterality Modality L-spine Magnetic Resonan ce 03/05/2022 8:26 PM EDT Impressions 03/05/2022 10:43 PM EDT No significant change in severe lumbar spine degenerative change since 02/09/2019, most notable for: -Severe spinal canal stenosis from L2-L3 through L4-L5. -Moderate bilateral foraminal stenosis at L2-L3, L4-L5, and L5-S1. Narrative 03/05/2022 10:43 PM EDT MRI LUMBAR SPINE (NEURO) WITHOUT CONTRAST TECHNIQUE: Multi-sequence, multi-planar MRI of the lumbar spine was performed without intravenous contrast. COMPARISON: Lumbar spine MRI 02/09/2019 FINDINGS: LUMBAR SPINE: Alignment and Vertebrae: Normal alignment. No compression fracture. Marrow: No bone marrow replacing lesion. Discs and Endplates: Multilevel disc space narrowing most severe at L2-L3 and L4-L5, as well as extensive marginal osteophyte formation. Conus: Normal. Soft Tissues: Normal. No prevertebral edema. Other Findings: None. Findings by level: T12-L1: Bilateral facet arthropathy. No significant neural foraminal or spinal canal stenosis. L1-L2: Diffuse disc bulge. Bilateral facet arthropathy. Mild spinal canal stenosis. No significant foraminal stenosis. L2-L3: Diffuse disc bulge. Bilateral facet arthropathy. Ligamentum flavum hypertrophy. Severe spinal canal stenosis. Moderate bilateral foraminal stenosis. Findings are similar to prior. L3-L4: Diffuse disc bulge. Bilateral facet arthropathy. Ligamentum flavum hypertrophy. Severe spinal canal stenosis. Mild left and ywsm-yu-ryfdehjk right foraminal stenosis. Findings are similar to prior. L4-L5: Diffuse disc bulge. Bilateral facet arthropathy. Ligamentum flavum hypertrophy. Severe spinal canal stenosis. Moderate bilateral foraminal stenosis. Findings are similar to prior. L5-S1: Diffuse disc bulge. Bilateral facet arthropathy. No significant spinal canal stenosis. Moderate bilateral foraminal stenosis. Findings are similar to prior. Procedure Note Brady Manzano MD - 03/05/2022 MRI LUMBAR SPINE (NEURO) WITHOUT CONTRAST TECHNIQUE: Multi-sequence, multi-planar MRI of the lumbar spine wasperformed without intravenous contrast. COMPARISON: Lumbar spine MRI 02/09/2019 FINDINGS: LUMBAR SPINE: Alignment and Vertebrae: Normal alignment. No compression fracture. Marrow: No bone marrow replacing lesion. Discs and Endplates: Multilevel disc space narrowing most severe at L2-L3and L4- L5, as well as extensive marginal osteophyte formation. Conus: Normal. Soft Tissues: Normal. No prevertebral edema. Other Findings: None. Findings by level: T12-L1: Bilateral facet arthropathy. No significant neural foraminal orspinal canal stenosis. L1-L2: Diffuse disc bulge. Bilateral facet arthropathy. Mild spinal canalstenosis. No significant foraminal stenosis. L2-L3: Diffuse disc bulge. Bilateral facet arthropathy. Ligamentum flavumhypertrophy. Severe spinal canal stenosis. Moderate bilateral foraminalstenosis. Findings are similar to prior. L3-L4: Diffuse disc bulge. Bilateral facet arthropathy. Ligamentum flavumhypertrophy. Severe spinal canal stenosis. Mild left and hlks-fm-rxidnectgwzhy foraminal stenosis. Findings are similar to prior. L4-L5: Diffuse disc bulge. Bilateral facet arthropathy. Ligamentum flavumhypertrophy. Severe spinal canal stenosis. Moderate bilateral foraminalstenosis. Findings are similar to prior. L5-S1: Diffuse disc bulge. Bilateral facet arthropathy. No significantspinal canal stenosis. Moderate bilateral foraminal stenosis. Findings aresimilar to prior. IMPRESSION: No significant change in severe lumbar spine degenerative change since02/09/2019, most notable for: -Severe spinal canal stenosis from L2-L3 through L4-L5. -Moderate bilateral foraminal stenosis at L2-L3, L4-L5, and L5-S1. Santos Lee DO IMG MR XSPECIALTY Final Resu lt documented in this encounter Visit Diagnoses Diagnosis Lumbar radiculopathy- Primary Thoracic or lumbosacral neuritis or radiculitis, unspecified Lumbar radiculopathy Thoracic or lumbosacral neuritis or radiculitis, unspecified documented in this encounter Additional Health Concerns Assessment Noted Time PHQ-2 Depression Total Score: 1 07/06/20 19 2:52 PM EST documented as of this encounter Care Teams Wastewater Treatment Engineer Relationship Specialty Start Date End Date Darwin Montanez MD [address] [place] [address] PCP - General 04/23/17 Yoli Murray NP [address] [place] [address] Historical LMR Provider 04/22/17 Aaliyah Garg, MATILDE [address] [place] [address] Historical LMR Provider 04/22/17 Darwin Montanez MD [address] [place] [address] Historical LMR Provider 04/22/17 Darwin Montanez MD [address] [place] [address] Insurance Assigned Provider 10/12/23 Nitza Lopez, JESUS [address] [place] [address] [employer] Cushion Assembler 02/18/24 03/25/24 documented as of this encounter Additional Source Comments The information contained in this document represents components of the legal health record. It is not the complete legal health record.[facility]
--- OUTSIDE RECORDS SUMMARY | 2025-03-03 14:31 | XMS_ITS | Encounter Summary ---
Author Organization [facility] Address [address] [place] [address] Phone Care Team Providers Care Sporting Goods Salesperson Name Role Phone Yoli Murray OFFICE MACHINES SALES REPRESENTATIVE Unavailable [phone] Aaliyah Garg DIETITIAN TEACHER Unavailable [phone] Darwin Montanez MD Unavailable [phone] Darwin Montanez MD Primary Care Provider [phone] Darwin Montanez MD Unavailable [phone] Nitza Lopez RN Unavailable [phone] Encounter Details Date Type Department Care Team (Late st Contact Info) Description 04/10/2023 Procedure Pass [facility] [address] [place] [address] Social History Tobacco Use Types Packs/Day Years [...] with a working camera? Not on file Sex and Gender Information Value Date Recorded Sex Assigned at Male 05/27/2020 11:04 AM EST Legal Sex Male 9:58 PM EDT Gender Identity Male 05/27/2020 11:04 AM EST Sexual Orientation Not on file documented as of this encounter Plan of Treatment Upcoming Encounters Date Type Department Care Team (Late st Contact Info) Description 05/22/2024 Procedure Pass [facility] [address] [place] [address] 06/01/2025 9:30 AM EST Appointment Echo Lab [address] [place] [address] Castillo Valles MD [address] [place] [address] 06/18/2025 10:00 AM EST Office Visit [facility] [address] Floor, [address] [place] [address] Castillo Valles MD [address] [place] [address] 12/01/2025 3:40 PM EDT Office Visit [facility] [place] [facility] 14 [facility] [address] [place] [address] Darwin Montanez MD [address] [place] [address] documented as of this encounter Visit Diagnoses Not on filedocumented in this encounter Additional Health Concerns Assessment Noted Time PHQ-9 Depression Total Score: 2 07/04/20 23 12:49 PM EST PHQ-2 Depression Total Score: 0 11/14/19 24 10:20 AM EDT documented as of this encounter Care Teams Sporting Goods Salesperson Relationship Specialty Start Date End Date Darwin Montanez MD [address] [place] [address] [place] [address] PCP - General 04/23/17 Yoli Murray NP [address] [place] [address] [place] [address] [email or web address] Historical LMR Provider 04/22/17 Aaliyah Garg CNP [address] [place] [address] [place] [address] Historical LMR Provider 04/22/17 Darwin Montanez MD [address] [place] [address] [place] [address] Historical LMR Provider 04/22/17 Darwin Montanez MD [address] [place] [address] Insurance Assigned Provider 10/12/23 Nitza Lopez, JESUS [address] [place] [address] [email or web address] iC[employer] Software Engineering Specialist 02/18/24 03/25/24 documented as of this encounter Additional Source Comments The information contained in this document represents components of the legal health record. It is not the complete legal health record.[facility]
--- OUTSIDE RECORDS SUMMARY | 2025-03-03 14:31 | XMS_ITS | Encounter Summary ---
Author Organization [facility] Address [address] [place] [address] Phone Care Team Providers Care Solid Waste Management Engineer Name Role Phone Yoli Murray BRAILLE TRANSCRIBER Unavailable [phone] Aaliyah Garg ADOLESCENT PSYCHIATRIST Unavailable [phone] Darwin Montanez MD Unavailable [phone] Jaden Boles MD Unavailable Unavailable Darwin Montanez MD Primary Care Provider [phone] Darwin Montanez MD Unavailable [phone] Nitza Lopez RN Unavailable [phone] Encounter Details Date Type Department Care Team (Late st Contact Info) Description 06/28/2021 Procedure Pass [facility], [address] [address] Social History Tobacco Use Types Packs/Day Years [...] 6:54 PM EST Ariadne Merino, JESUS * [place] Suicide Severity Rating Scale (Screener/Recent Self-Report) Question [...] Info) Description 05/22/2024 Procedure Pass [facility] [address] [place] [address] 06/01/2025 9:30 AM EST Appointment [facility] Lab [address] [place] [address] Castillo Valles MD [address] [place] [address] 06/18/2025 10:00 AM EST Office Visit [facility] [address], [address] [place] [address] Castillo Valles MD [address] [place] [address] 12/01/2025 3:40 PM EDT Office Visit [facility] [place] [facility] 14 [facility] [address] [place] [address] Darwin Montanez MD [address] [place] [address] [place] [address] documented as of this encounter Visit Diagnoses Not on filedocumented in this encounter Additional Health Concerns Assessment Noted Time PHQ-2 Depression Total Score: 1 07/06/20 19 2:52 PM EST documented as of this encounter Care Teams Solid Waste Management Engineer Relationship Specialty Start Date End Date Darwin Montanez MD [address] [place] [address] PCP - General 04/23/17 Yoli Murray, JAI [address] [place] [address] Historical LMR Provider 04/22/17 Aaliyah Garg CNP [address] [place] [address] Historical LMR Provider 04/22/17 Darwin Montanez MD [address] [place] [address] Historical LMR Provider 04/22/17 Jaden Boles MD Historical LMR Provider 04/22/17 07/15/21 Darwin Montanez MD [address] [place] [address] Insurance Assigned Provider 10/12/23 Nitza Lopez, JESUS [address] [place] [address] [employer] Financial Institution Branch Manager 02/18/24 03/25/24 documented as of this encounter Additional Source Comments The information contained in this document represents components of the legal health record. It is not the complete legal health record.[facility]
--- OUTSIDE RECORDS SUMMARY | 2025-03-03 14:31 | XMS_ITS | Encounter Summary ---
Author Organization [facility] Address [address] [place] [address] Phone Care Team Providers Care Senior Functional Analyst Name Role Phone Yoli Murray SENIOR ORACLE DATABASE ADMINISTRATOR Unavailable [phone] Aaliyah Garg MILK HAULER Unavailable [phone] Darwin Montanez MD Unavailable Darwin Montanez MD Primary Care Provider [phone] Darwin Montanez MD Unavailable [phone] Nitza Lopez RN Unavailable [phone] Encounter Details Date Type Department Care Team (Late st Contact Info) Description 03/30/2022 Procedure Pass [facility] [address] [place] [address] Social History Tobacco Use Types Packs/Day Years [...] Info) Description 05/22/2024 Procedure Pass [facility] [address] [place] [address] 06/01/2025 9:30 AM EST Appointment [facility] [place] [place] [address] Castillo Valles MD [address] [place] [address] 06/18/2025 10:00 AM EST Office Visit [facility] [address] [place] [address] Castillo Valles MD [address] [place] [address] 12/01/2025 3:40 PM EDT Office Visit [facility] [place] [facility] [address] [place] [address] Darwin Montanez MD [address] [place] [address] documented as of this encounter Visit Diagnoses Not on filedocumented in this encounter Additional Health Concerns Assessment Noted Time PHQ-2 Depression Total Score: 1 07/06/20 19 2:52 PM EST documented as of this encounter Care Teams Senior Functional Analyst Relationship Specialty Start Date End Date Darwin Montanez MD [address] [place] [address] PCP - General 04/23/17 Yoli Murray NP [address] [place] [address] Historical LMR Provider 04/22/17 Aaliyah Garg, MATILDE [address] [place] [address] Historical LMR Provider 04/22/17 Darwin Montanez MD [address] [place] [address] [address] [place] [address] [email or web address] Historical LMR Provider 04/22/17 Darwin Montanez MD [address] [place] [address] [address] [place] [address] [email or web address] Insurance Assigned Provider 10/12/23 Nitza Lopez, RN [address] [place] [address] [email or web address] iCMP Director Of Income Tax 02/18/24 03/25/24 documented as of this encounter Additional Source Comments The information contained in this document represents components of the legal health record. It is not the complete legal health record.[facility]
--- OUTSIDE RECORDS SUMMARY | 2025-03-03 14:31 | XMS_ITS | Encounter Summary ---
Author Organization [facility] Address [address] [place] [address] Phone Care Team Providers Care Steam Trap Worker Name Role Phone MurrayYoli ARCHITECTURE TECHNICIAN Unavailable [phone] Aaliyah Garg FRONT END ENGINEER Unavailable [phone] Darwin Montanez MD Unavailable [phone] Jaden Boles MD Unavailable Unavailable Darwin Montanez MD Primary Care Provider [phone] Darwin Montanez MD Unavailable [phone] Nitza Lopez RN Unavailable [phone] Encounter Details Date Type Department Care Team (Late st Contact Info) Description 10/24/2017 Transcribe Orders [facility] [address] [place] [address] Darwin Montanez MD [address] [place] [address] [place] [address] [email or web address] Social History Tobacco Use Types Packs/Day Years Used Date Smoking Tobacco: Never Assessed Sex and Gender Information Value Date Recorded Sex Assigned at Male 05/27/2020 11:04 AM EST Legal Sex Male 9:58 PM EDT Gender Identity Male 05/27/2020 11:04 AM EST Sexual Orientation Not on file documented as of this encounter Plan of Treatment Upcoming Encounters Date Type Department Care Team (Late Contact Info) Description 05/22/2024 Procedure Pass [facility] [address] [place] [address] 06/01/2025 9:30 AM EST Appointment [facility] [address] [place] [address] Castillo Valles MD [address] [place] [address] 06/18/2025 10:00 AM EST Office Visit [facility] [address], [address] [place] [address] Castillo Valles MD [address] [place] [address] 12/01/2025 3:40 PM EDT Office Visit [facility] Internal Medicine [address] [place] [address] Darwin Montanez MD [address] [place] [address] documented as of this encounter Visit Diagnoses Not on filedocumented in this encounter Additional Health Concerns Infection Onset Date Last Indicated Resolved Time CoV-Risk 03/08/2020 03/09/2020 03/22/2020 1:24 AM EDT documented as of this encounter Care Teams Steam Trap Worker Relationship Specialty Start Date End Date Darwin Montanez MD [address] [place] [address] PCP - General 04/23/17 Yoli Murray NP [address] [place] [address] Historical LMR Provider 04/22/17 Aaliyah Garg, MATILDE [address] [place] [address] [email or web address] Historical LMR Provider 04/22/17 Darwin Montanez MD [address] [place] [address] [place] [address] [email or web address] Historical LMR Provider 04/22/17 Jaden Boles MD Historical LMR Provider 04/22/17 07/15/21 Darwin Montanez MD [address] [place] [address] [place] [address] [email or web address] Insurance Assigned Provider 10/12/23 Nitza Lopez RN [address] [place] [address] [email or web address] iCMP Technical Assistance Consultant 02/18/24 03/25/24 documented as of this encounter Additional Source Comments The information contained in this document represents components of the legal health record. It is not the complete legal health record.[facility]
--- OUTSIDE RECORDS SUMMARY | 2025-03-03 14:31 | XMS_ITS | Encounter Summary ---
Author Organization [facility] Address [address] [place] [address] [place] [address] Phone Care Team Providers Care Manager Fleet Name Role Phone Yoli Murray Ann SUPERVISOR MATTRESS AND BOXSPRINGS Unavailable [phone] Aaliyah Garg Jo RUBBER STAMP DIE INSPECTOR Unavailable [phone] Darwin Montanez MD Unavailable [phone] Darwin Montanez MD Primary Care Provider [phone] Darwin Montanez MD Unavailable Reason for Visit * Reason Comments Medication Refill Chlorthalidone Encounter Details Date Type Department Care Team (Late st Contact Info) Description 12/19/2024 Refill [facility] [place] [facility] [address] [place] [address] Darwin Montanez MD 14 [facility] [address] [place], [place] [phone] [email or web address] Medication Refill (Chlorthalidone) Social History Tobacco Use Types Packs/Day Years Used Date Smoking Tobacco: Former Cigarettes Smokeless Tobacco: Never Alcohol Use Standard Drinks/Week Comments Yes 3 [...] on file documented as of this encounter Progress Notes * Ave [address] PA-C - 12/21/2024 10:21 AM EDT * Estefania Dodge CMA - 12/21/2024 8:24 AM EDT Rx Care Gap Status - Instructions for Clinical Staff (prescriber discretion applies): n/a Visit Info Last visit: 11/23/2024 Darwin Montanez MD - Internal Medicine [facility] > Requested f/u: Not specified Upcoming visit: 12/01/2025 Darwin Montanez MD - Internal Medicine [facility] ACTIONS TAKEN BY Estefania Dodge CMA - No action needed by clinical staff ACEi / ARBs / Diuretic Rx Protocol (on HTN Registry) - chlorthalidone Criteria met; renew for up to 12 months. Visit in the past 14 months: Yes Clinical criteria: - BP within last 6 months: 106/60 on 11/23/2024 - BMP within past year: Yes - Cr, GFR and K are normal: Yes Lab Results Component Value Date SODIUM 137 11/17/2024 POTASSIUM 3.6 11/17/2024 CHLORIDE 99 11/17/2024 CO2 23 11/17/2024 BUN 29 (H) 11/17/2024 CREATININE 1.10 11/17/2024 EGFR 72 11/17/2024 documented in this encounter Plan of Treatment Upcoming Encounters Date Type Department Care Team (Late st Contact Info) Description 05/22/2024 Procedure Pass [place] [address] 06/01/2025 9:30 AM EST Appointment [place] [address] Castillo Valles MD [address] [place] [address] 06/18/2025 10:00 AM EST Office Visit [facility] [address], [address] [place] [address] Castillo Valles MD [address] [place] [address] 12/01/2025 3:40 PM EDT Office Visit [facility] Internal Medicine [address] [address] Darwin Montanez MD [address] [place] [address] documented as of this encounter Visit Diagnoses Diagnosis Essential hypertension Unspecified essential hypertension documented in this encounter Additional Health Concerns Assessment Noted Time PHQ-9 Depression Total Score: 2 07/04/20 23 12:49 PM EST PHQ-2 Depression Total Score: 0 11/24/19 25 3:36 PM EDT documented as of this encounter Care Teams Manager Fleet Relationship Specialty Start Date End Date Darwin Montanez MD [address] [place] [address] PCP - General 04/23/17 Yoli Murray SUPERVISOR MATTRESS AND BOXSPRINGS [address] [place] [address] Historical LMR Provider 04/22/17 Aaliyah Garg CNP [address] [place] [address] Historical LMR Provider 04/22/17 Darwin Montanez MD [address] [place] [address] Historical LMR Provider 04/22/17 Darwin Montanez MD [address] [place] [address] [address] [place] [address] [email or web address] Insurance Assigned Provider 10/12/23 documented as of this encounter Additional Source Comments The information contained in this document represents components of the legal health record. It is not the complete legal health record.[facility]
--- OUTSIDE RECORDS SUMMARY | 2025-03-03 14:32 | XMS_ITS | Encounter Summary ---
Author Organization [facility] Address [address] [place] [address] Phone Care Team Providers Care Admissions Director Name Role Phone Yoli Murray PATIENT CARE TECHNICIAN INSTRUCTOR Unavailable [phone] Aaliyah Garg ASSISTANT PROFESSOR OF CRIMINAL JUSTICE Unavailable [phone] Darwin Montanez MD Unavailable [phone] Jaden Boles MD Unavailable Unavailable Darwin Montanez MD Primary Care Provider [phone] Darwin Montanez MD Unavailable [phone] Nitza Lopez RN Unavailable [phone] Encounter Details Date Type Department Care Team (Late st Contact Info) Description 06/28/2021 Procedure Pass [facility] [address] [place] [address] Social History Tobacco Use Types Packs/Day Years [...] 6:54 PM EST Ariadne Merino, JESUS * [place] Suicide Severity Rating Scale (Screener/Recent Self-Report) Question [...] Info) Description 05/22/2024 Procedure Pass Echo Lab [address] [place] [address] 06/01/2025 9:30 AM EST Appointment Echo Lab [address] [place] [address] Castillo Valles MD [address] [place] [address] 06/18/2025 10:00 AM EST Office Visit [facility] [address] Floor, [address] [place] [address] Castillo Valles MD [address] [place] [address] 12/01/2025 3:40 PM EDT Office Visit [facility] 14 [facility] [address] [place] [address] Darwin Montanez MD [address] [place] [address] [place] [address] documented as of this encounter Visit Diagnoses Not on filedocumented in this encounter Additional Health Concerns Assessment Noted Time PHQ-2 Depression Total Score: 1 07/06/20 19 2:52 PM EST documented as of this encounter Care Teams Admissions Director Relationship Specialty Start Date End Date Darwin Montanez MD [address] [place] [address] [place] [address] PCP - General 04/23/17 Yoli Murray, JAI [address] [place] [address] Historical LMR Provider 04/22/17 Aaliyah Garg, MATILDE [address] [place] [address] Historical LMR Provider 04/22/17 Darwin Montanez MD [address] [place] [address] Historical LMR Provider 04/22/17 Jaden Boles MD Historical LMR Provider 04/22/17 07/15/21 Darwin Montanez MD [address] [place] [address] Insurance Assigned Provider 10/12/23 Nitza Lopez RN [address] [place] [address] iCMP Collector Of Aquarium Specimens 02/18/24 03/25/24 documented as of this encounter Additional Source Comments The information contained in this document represents components of the legal health record. It is not the complete legal health record.[facility]
--- OUTSIDE RECORDS SUMMARY | 2025-03-03 14:32 | XMS_ITS | Encounter Summary ---
Author Organization [facility] Address [facility] [address] [address] Phone Care Team Providers Care Marine Pipefitter Name Role Phone Yoli Murray EP TECH Unavailable [phone] Aaliyah Garg STUDENT MINISTRY PASTOR Unavailable [phone] Darwin Montanez MD Unavailable [phone] Darwin Montanez MD Primary Care Provider [phone] Darwin Montanez MD Unavailable [phone] Encounter Details Date Type Department Care Team (Late st Contact Info) Description 11/13/2024 Procedure Pass [facility] Endoscopy Admitting Dept Virtual Department [address] [place] [address] [id number] Social History Tobacco Use Types Packs/Day Years Used Date Smoking Tobacco: Former Cigarettes Smokeless Tobacco: Never Alcohol Use Standard Drinks/Week Comments Yes 3 (1 standard drink = 0.6 oz pur e alcohol) 1-2 weekly Education Answer Date Recorded Are you interested [...] as food, clothing, or medical care? No 11/13/2024 In the past 12 months have y ou been in a relationship with a person who hurts, threatens, or tries to control you? No 11/13/2024 Are you denied basic needs s uch as food, clothing, or medical care? No 11/13/2024 In the past 12 months have y ou been in a relationship with a person who hurts, threatens, or tries to control you? No 11/13/2024 Sex and Gender Information Value Date Recorded Sex Assigned at Male 05/27/2020 11:04 AM EST Legal Sex Male 9:58 PM EDT Gender Identity Male 05/27/2020 11:04 AM EST Sexual Orientation Not on file documented as of this encounter Plan of Treatment Upcoming Encounters Date Type Department Care Team (Late st Contact Info) Description 05/22/2024 Procedure Pass Echo Lab [address] [place] [address] 06/01/2025 9:30 AM EST Appointment Echo Lab [address] [place] [address] Castillo Valles MD [address] [place] [address] 06/18/2025 10:00 AM EST Office Visit [facility] [address] Floor, [address] [place] [address] Castillo Valles MD [address] [place] [address] 12/01/2025 3:40 PM EDT Office Visit [facility] [place] [facility] 14 [facility] [address] [place] [address] Darwin Montanez MD 14 [facility] [address] [place] [address] documented as of this encounter Visit Diagnoses Not on filedocumented in this encounter Additional Health Concerns Assessment Noted Time PHQ-9 Depression Total Score: 2 07/04/20 23 12:49 PM EST PHQ-2 Depression Total Score: 0 11/14/19 10:20 AM EDT documented as of this encounter Care Teams Marine Pipefitter Relationship Specialty Start Date End Date Darwin Montanez MD [address] [place] [address] PCP - General 04/23/17 Yoli Murray NP [address] [place] [address] Historical LMR Provider 04/22/17 Aaliyah Garg CNP [address] [place] [address] Historical LMR Provider 04/22/17 Darwin Montanez MD [address] [place] [address] Historical LMR Provider 04/22/17 Darwin Montanez MD [address] [place] [address] Insurance Assigned Provider 10/12/23 documented as of this encounter Additional Source Comments The information contained in this document represents components of the legal health record. It is not the complete legal health record.[facility]
--- OUTSIDE RECORDS SUMMARY | 2025-03-03 14:32 | XMS_ITS | Encounter Summary ---
Author Organization [facility] Address [address] [place] [address] Phone Care Team Providers Care Weatherization Field Technician Name Role Phone Yoli Murray JUNIOR LEGAL SECRETARY Unavailable [phone] Aaliyah Garg GRAPHIC ART DESIGNER Unavailable [phone] Darwin Montanez MD Unavailable [phone] Jaden Boles MD Unavailable Unavailable Darwin Montanez MD Primary Care Provider [phone] Darwin Montanez MD Unavailable [phone] Nitza Lopez RN Unavailable [phone] Encounter Details Date Type Department Care Team (Late st Contact Info) Description 06/28/2021 Procedure Pass [facility] Scan - [address] [address] Social History Tobacco Use Types Packs/Day Years [...] 6:54 PM EST Ariadne Merino, JESUS * [place] Suicide Severity Rating Scale (Screener/Recent Self-Report) Question [...] Info) Description 05/22/2024 Procedure Pass Echo Lab [address] [place] [address] 06/01/2025 9:30 AM EST Appointment Echo Lab [address] [place] [address] Castillo Valles MD [address] [place] [address] 06/18/2025 10:00 AM EST Office Visit [facility] [address] Floor, [address] [place] [address] Castillo Valles MD [address] [place] [address] 12/01/2025 3:40 PM EDT Office Visit [facility] 14 [facility] [address] [place] [address] Darwin Montanez MD [address] [place] [address] [place] [address] documented as of this encounter Visit Diagnoses Not on filedocumented in this encounter Additional Health Concerns Assessment Noted Time PHQ-2 Depression Total Score: 1 07/06/20 19 2:52 PM EST documented as of this encounter Care Teams Weatherization Field Technician Relationship Specialty Start Date End Date Darwin Montanez MD [address] [place] [address] PCP - General 04/23/17 Yoli Murray, JAI [address] [place] [address] Historical LMR Provider 04/22/17 Aaliyah Garg CNP [address] [place] [address] Historical LMR Provider 04/22/17 Darwin Montanez MD [address] [place] [address] Historical LMR Provider 04/22/17 Jaden Boles MD Historical LMR Provider 04/22/17 07/15/21 Darwin Montanez MD [address] [place] [address] Insurance Assigned Provider 10/12/23 Nitza Lopez, JESUS [address] [place] [address] iCMP Chucking Lathe Operator 02/18/24 03/25/24 documented as of this encounter Additional Source Comments The information contained in this document represents components of the legal health record. It is not the complete legal health record.[facility]
== END 2025-03-03 14:28 | disposition home or self-care (01) ==
PROVIDERS: PCP Internal Medicine; Visit Provider Physician Assistant
DX: G95.89 Other specified diseases of spinal cord (principal)
CPT/HCPCS: 99024

== ENCOUNTER → 2025-03-09 13:50 | Outpatient (BNV) | payer BC, SELFPAY | PROVIDERS: PCP Internal Medicine; Visit Provider Internal Medicine Cardiovascular Disease | DX: R94.31 Abnormal electrocardiogram [ECG] [EKG] (principal); Z01.810 Encounter for preprocedural cardiovascular examination | CPT/HCPCS: 93010 ==

== ENCOUNTER 2025-03-31 05:39 | Day surgery (SDC) | payer BC, SELFPAY ==
--- NOTE | 2025-03-09 | ECG_ITS ---
Test Reason : preop Blood Pressure : */* mmHG Vent. Rate : 66 BPM Atrial Rate : 66 BPM P-R Int : 160 ms QRS Dur : 94 ms QT Int : 370 ms P-R-T Axes : 24 17 28 degrees QTcB Int : 387 ms Normal sinus rhythm Inferior infarct , age undetermined Abnormal ECG No previous ECGs available Referred By: Caitlyn Howell Electronically Signed By: Leighton Trevizo
[2025-03-09 12:58] VITALS: BP 118/81; PULSE 82; RESP 16; O2SAT 96; BMI 32.3
--- NOTE | 2025-03-09 13:29 | HO.ANESPROP2 ---
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 Valles: last echo 04/2024, see below; EKG updated 03/09/25. s/p laminectomy, lumbar decompression 08/2024 with GA, ETT 7.5; saw cardiology for clearance prior to 08/2024 procedure. H/O TIA without sequela, on ASA, statin. PMFSH Active Problems Active Problems: All Active Problems (Updated 11/20/24 @ 16:04 by Sergio Bejarano MD, PhD) Lumbar epidural mass (Acute) Status post lumbar spine surgery for decompression of spinal cord (Acute) Lumbar stenosis with neurogenic claudication (Acute) Past Medical History Medical History Mild ascending aorta dilatation CAD (coronary artery disease) TIA (transient ischemic attack) Elevated cholesterol HTN (hypertension) Gout GERD (gastroesophageal reflux disease) Arthritis Bladder cancer Spinal stenosis Family History Family history of problems with anesthesia: No Surgical History Surgical History History of spinal surgery (08/12/24) Hx of cystoscopy History of tonsillectomy and adenoidectomy (~1976) Hx of cardiac catheterization H/O colonoscopy History of transurethral resection of bladder tumor (TURBT) (~2022) Hx of aortic valve replacement (03/2023) History of Problems with Anesthesia: No Social History Social History Household Members: Spouse Housing: House Are you a primary medicare nurse to a significant other at home: No Do you presently have visiting nurse or other home services: No Comment: uses cane at times Patient Tobacco Use Status: Former Tobacco user Tobacco use type: Cigarette Years Smoked: 18 Smoked in Last 30 Days: No Use of substances other than those prescribed or required for medical reasons: Yes Substance Use Type: Marijuana Substance Use Frequency: Occasionally Have you been hit, kicked, punched, or otherwise hurt by someone within the past year? If so, by whom?: No Are you DNR?: No Advance Directives: No Advance Directives Information Provided: Yes Advance Directives on File: No Poor oral hygiene: No Meds Allergies Allergy/AdvReac Type Severity Reaction Status Date / Time No Known Allergies Allergy Verified 03/31/25 06:21 Home Medications ?Medication ?Instructions ?Recorded ?Confirmed ?Last Taken ?Type aspirin 81 mg tablet,delayed 81 mg PO QAM 07/22/24 03/31/25 03/25/25 History release atorvastatin 80 mg tablet 80 mg PO BEDTIME 07/22/24 03/31/25 08/11/24 History chlorthalidone 25 mg tablet 25 mg PO BEDTIME 07/22/24 03/31/25 08/11/24 History lisinopril 40 mg tablet 40 mg PO QAM 07/22/24 03/31/25 08/11/24 History omeprazole 20 mg capsule,delayed 20 mg PO BEDTIME 07/22/24 03/31/25 08/11/24 History release Exam Height,Weight and Vital Signs: Height 5 ft 10 in Weight 102.058 kg Last Vital Signs Pulse 82 03/09/25 12:58 Resp 16 03/09/25 12:58 BP 118/81 03/09/25 12:58 Pulse Ox 96 03/09/25 12:58 O2 Del Method Room Air 03/09/25 12:58 Pertinent Lab Results Pertinent Lab Results: Laboratory Tests 03/09/25 14:10 WBC 8.3 RBC 5.31 Hgb 15.9 Hct 45.9 Plt Count 234 Sodium 141 Potassium 3.6 BUN 18 H Creatinine 1.16 Narrative Narrative: ECHO 04/2024 Nml LV size and function EF 60-65% Asc aorta upper limits of nml @ 3.8cm Nml diastolic function Borderline LAE Nml functioning TAVR in aortic position - peak velocity 2.2, mean gradient 11mmHg EKG 03/09/25 NSR, inferior infarct, rate 66 *unchanged from prior 05/2024 Airway TM Dist: >3cm Neck ROM: Full Loose/Missing/Broken Teeth: No Heart: RRR Lungs: CTAB Assessment and Plan Final Anesthetic Review Family History of Problems with Anesthesia: No History of Problems with Anesthesia: No Documented by User: Kamar Mas MD 03/31/25 07:56 [facility] Past Medical History Medical History Mild ascending aorta dilatation CAD (coronary artery disease) TIA (transient ischemic attack) Elevated cholesterol HTN (hypertension) Gout GERD (gastroesophageal reflux disease) Arthritis Bladder cancer Spinal stenosis Surgical History Surgical History History of spinal surgery (08/12/24) Hx of cystoscopy History of tonsillectomy and adenoidectomy (~1976) Hx of cardiac catheterization H/O colonoscopy History of transurethral resection of bladder tumor (TURBT) (~2022) Hx of aortic valve replacement (03/2023) Social History Social History Household Members: Spouse Housing: House Are you a primary medicare nurse to a significant other at home: No Do you presently have visiting nurse or other home services: No Comment: uses cane at times Patient Tobacco Use Status: Former Tobacco user Tobacco use type: Cigarette Years Smoked: 18 Smoked in Last 30 Days: No Use of substances other than those prescribed or required for medical reasons: Yes Substance Use Type: Marijuana Substance Use Frequency: Occasionally Have you been hit, kicked, punched, or otherwise hurt by someone within the past year? If so, by whom?: No Are you DNR?: No Advance Directives: No Advance Directives Information Provided: Yes Advance Directives on File: No Poor oral hygiene: No Meds Allergies Allergy/AdvReac Type Severity Reaction Status Date / Time No Known Allergies Allergy Verified 03/31/25 06:21 Home Medications ?Medication ?Instructions ?Recorded ?Confirmed ?Last Taken ?Type aspirin 81 mg tablet,delayed 81 mg PO QAM 07/22/24 03/31/25 03/25/25 History release atorvastatin 80 mg tablet 80 mg PO BEDTIME 07/22/24 03/31/25 08/11/24 History chlorthalidone 25 mg tablet 25 mg PO BEDTIME 07/22/24 03/31/25 08/11/24 History lisinopril 40 mg tablet 40 mg PO QAM 07/22/24 03/31/25 08/11/24 History omeprazole 20 mg capsule,delayed 20 mg PO BEDTIME 07/22/24 03/31/25 08/11/24 History release Exam Airway Mallampati Class: II Assessment and Plan Assessment Anesthesia Assessment: Anesthesia Plan Discussed and Chart Reviewed Final Anesthetic Review NPO: Yes ASA Class: II Final Preanesthetic Review: No Changes in Pt Med Stat, Meds/Allgs Chart Reviewed, Consent Obtained/Reviewed and Anes Risks/Benef Reviewed Patient Risk: Low Procedure Risk: Intermediate Anesthetic Plan Anesthetic Plan: GA and Agree w/ Assess. and Plan Disposition: Standard PACU
--- OUTSIDE RECORDS SUMMARY | 2025-03-09 14:18 | XMS_ITS | Encounter Summary ---
Author Organization [facility] Address [address] [place] [address] Phone Care Team Providers Care Screw Machine Set Up Operator Tool Name Role Phone MurrayYoli SENIOR ELECTRICAL DESIGNER Unavailable [phone] Aaliyah Garg FAGOT MAKER Unavailable [phone] Darwin Montanez MD Unavailable Jaden Boles MD Unavailable Unavailable Darwin Montanez MD Primary Care Provider [phone] Darwin Montanez MD Unavailable [phone] Nitza Lopez RN Unavailable [phone] Encounter Details Date Type Department Care Team (Late st Contact Info) Description 06/25/[address] [facility] [address] [place] [address] Darwin Montanez MD [address] [place] [address] [place] [address] [phone] [email or web address] Social History Tobacco Use Types Packs/Day Years [...] Info) Description 05/22/2024 Procedure Pass Echo Lab [address] [place] [address] 06/01/2025 9:30 AM EST Appointment Echo Lab [address] [place] [address] Castillo Valles MD [address] [place] [address] 06/18/2025 10:00 AM EST Office Visit [facility] [address] [place] [address] Dr [address] Floor, [address] [place] [address] Castillo Valles MD [address] [place] [address] 12/01/2025 3:40 PM EDT Office Visit [facility] [address] [place] [address] Darwin Montanez MD [address] [place] [address] documented as of this encounter Visit Diagnoses Not on filedocumented in this encounter Additional Health Concerns Infection Onset Date Last Indicated Resolved Time CoV-Risk 03/08/2020 03/09/2020 03/22/2020 1:24 AM EDT documented as of this encounter Care Teams Screw Machine Set Up Operator Tool Relationship Specialty Start Date End Date Darwin Montanez MD [address] [place] [address] PCP - General 04/23/17 Yoli Murray, JAI [address] [place] [address] Historical LMR Provider 04/22/17 Aaliyah Garg, FAGOT MAKER [address] [place] [address] [place] [address] Historical LMR Provider 04/22/17 Darwin Montanez MD [address] [place] [address] Historical LMR Provider 04/22/17 Jaden Boles MD Historical LMR Provider 04/22/17 07/15/21 Darwin Montanez MD [address] [place] [address] [email or web address] Insurance Assigned Provider 10/12/23 Nitza Lopez RN [address] [place] [address] [email or web address] [email or web address] Residential Supervisor 02/18/24 03/25/24 documented as of this encounter Additional Source Comments The information contained in this document represents components of the legal health record. It is not the complete legal health record.[facility]
--- OUTSIDE RECORDS SUMMARY | 2025-03-09 14:18 | XMS_ITS | Encounter Summary ---
Author Organization [facility] Address [address] [place] [address] Phone Care Team Providers Care Chief Green Officer Name Role Phone Yoli Murray BREWER HELPER Unavailable [phone] Aaliyah Garg MANAGER INSTALLATION Unavailable [phone] Darwin Montanez MD Unavailable [phone] Darwin Montanez MD Primary Care Provider [phone] Darwin Montanez MD Unavailable [phone] Nitza Lopez RN Unavailable [phone] Encounter Details Date Type Department Care Team (Late st Contact Info) Description 04/10/2023 Procedure Pass Echo Lab [address] [place] [address] Social History Tobacco Use Types Packs/Day Years [...] Info) Description 05/22/2024 Procedure Pass [facility] Lab [address] [place] [address] 06/01/2025 9:30 AM EST Appointment Echo Lab [address] [place] [address] Castillo Valles MD [address] [place] [address] 06/18/2025 10:00 AM EST Office Visit [facility] [address] Floor, [address] [place] [address] Castillo Valles MD [address] [place] [address] 12/01/2025 3:40 PM EDT Office Visit [facility] 14 [facility] [address] [place] [address] Darwin Montanez MD [address] [place] [phone] documented as of this encounter Visit Diagnoses Not on filedocumented in this encounter Additional Health Concerns Assessment Noted Time PHQ-9 Depression Total Score: 2 07/04/20 23 12:49 PM EST PHQ-2 Depression Total Score: 0 11/14/19 24 10:20 AM EDT documented as of this encounter Care Teams Chief Green Officer Relationship Specialty Start Date End Date Darwin Montanez MD [address] [place] [address] [place] [address] PCP - General 04/23/17 Yoli Murray NP [address] [place] [address] [place] [address] [email or web address] Historical LMR Provider 04/22/17 Aaliyah Garg CNP [address] [place] [address] [address] [place] [address] Historical LMR Provider 04/22/17 Darwin Montanez MD [address] [place] [address] [place] [address] Historical LMR Provider 04/22/17 Darwin Montanez MD [address] [place] [address] Insurance Assigned Provider 10/12/23 Nitza Lopez, JESUS [address] [place] [address] [email or web address] [email or web address] Airplane Gastank Liner Assembler 02/18/24 03/25/24 documented as of this encounter Additional Source Comments The information contained in this document represents components of the legal health record. It is not the complete legal health record.[facility]
--- OUTSIDE RECORDS SUMMARY | 2025-03-09 14:18 | XMS_ITS | Encounter Summary ---
Author Organization [facility] Address [address] [place] [address] Phone Care Team Providers Care Scratch Polisher Name Role Phone Yoli Murray STEEL MOLDER Unavailable [phone] Aaliyah Garg OFFSET PLATEMAKER Unavailable + [phone] Darwin Montanez MD Unavailable [phone] Jaden Boles MD Unavailable Unavailable Darwin Montanez MD Primary Care Provider [phone] Darwin Montanez MD Unavailable [phone] Nitza Lopez RN Unavailable [phone] Reason for Referral * MRI/CAT Scan - Closed Specialty Diagnoses / Procedures Referred By Chaya montez Referred To Contact Radiology Diagnoses Lumbar radiculopathy Procedures MRI Lumbar Spine Santos Lee DO Phone: tel: fax: [email or web address] Referral ID Status Reason Start Date Expiration Date Visits Re quested Visits Authorized [id number] Closed 01/29/2019 02/28/2019 1 1 Encounter Details Date Type Department Care Team (Latest Contact Info) Description 01/30/2019 Ancillary Orders Virtual Department [address] [place] [address] Santos Lee DO [address] [place] [address] [email or web address] Lumbar radiculopathy Social History Tobacco Use Types [...] Info) Description 05/22/2024 Procedure Pass [facility] [address] [place] [address] 06/01/2025 9:30 AM EST Appointment Echo Lab [address] [place] [address] Castillo Valles MD [address] [place] [address] 06/18/2025 10:00 AM EST Office Visit [facility] [address] 3rd Floor, [address] [place] [address] Castillo Valles MD [address] [place] [address] 12/01/2025 3:40 PM EDT Office Visit [facility] [place] [facility] 14 [facility] [address] [place] [address] Darwin Montanez MD 14 [facility] [address] [place] [address] documented as of this encounter Results * [...] prior CT study in 2011. POS - [id number] Narrative 02/09/2019 7:01 PM EDT EXAM: MRI [...] Vertebral body heights are maintained. T1 and R1rotprxnkgpan signal involving most of the L5 vertebral [...] also demonstrated in the prior CT study [id number]. POS - [id number] Santos Lee DO IMG MR XSPECIALTY Final Resu lt documented in this encounter Visit Diagnoses Diagnosis Lumbar radiculopathy Thoracic or lumbosacral neuritis or radiculitis, unspecified Lumbar radiculopathy Thoracic or lumbosacral neuritis or radiculitis, unspecified documented in this encounter Additional Health Concerns Infection Onset Date Last Indicated Resolved Time CoV-Risk 03/08/2020 03/09/2020 03/22/2020 1:24 AM EDT documented as of this encounter Care Teams Scratch Polisher Relationship Specialty Start Date End Date Darwin Montanez MD [address] [place] [address] [address] [place] [address] [email or web address] PCP - General 04/23/17 Yoli Murray NP [address] [place] [address] [place] [address] Historical LMR Provider 04/22/17 Aaliyah Garg CNP [address] [place] [address] [place] [address] Historical LMR Provider 04/22/17 Darwin Montanez MD [address] [place] [address] [place] [address] Historical LMR Provider 04/22/17 Jaden Boles MD Historical LMR Provider 04/22/17 07/15/21 Darwin Montanez MD [address] [place] [address] Insurance Assigned Provider 10/12/23 Nitza Lopez RN [address] [place] [address] [email or web address] iCMP Teletype Operator 02/18/24 03/25/24 documented as of this encounter Additional Source Comments The information contained in this document represents components of the legal health record. It is not the complete legal health record.[facility]
--- OUTSIDE RECORDS SUMMARY | 2025-03-09 14:18 | XMS_ITS | Encounter Summary ---
Author Organization [facility] Address [address] [place] [address] Phone Care Team Providers Care Receivable Manager Name Role Phone Yoli Murray MOTOR VEHICLES SUPERVISOR Unavailable [phone] Aaliyah Garg ITEM PROCESSING CLERK Unavailable [phone] Darwin Montanez MD Unavailable [phone] Darwin Montanez MD Primary Care Provider [phone] Darwin Montanez MD Unavailable [phone] Nitza Lopez RN Unavailable Encounter Details Date Type Department Care Team (Late st Contact Info) Description 03/30/2022 Procedure Pass [facility] [address] [place] [address] Social History Tobacco Use Types Packs/Day Years [...] Info) Description 05/22/2024 Procedure Pass [facility] [address] [place] [address] 06/01/2025 9:30 AM EST Appointment [facility] [address] [place] [address] Castillo Valles MD 50 [place] [address] 06/18/2025 10:00 AM EST Office Visit [facility] [address] [place] [address] Castillo Valles MD [address] [place] [address] 12/01/2025 3:40 PM EDT Office Visit [facility] [place] [facility] [address] [place] [address] Darwin Montanez MD [address] [place] [address] documented as of this encounter Visit Diagnoses Not on filedocumented in this encounter Additional Health Concerns Assessment Noted Time PHQ-2 Depression Total Score: 1 07/06/20 19 2:52 PM EST documented as of this encounter Care Teams Receivable Manager Relationship Specialty Start Date End Date Darwin Montanez MD [address] [place] [address] PCP - General 04/23/17 Yoli Murray NP [address] [place] [address] Historical LMR Provider 04/22/17 Aaliyah Garg, MATILDE [address] [place] [address] Historical LMR Provider 04/22/17 Darwin Montanez MD [address] [place] [address] [address] [place] [address] [email or web address] Historical LMR Provider 04/22/17 Darwin Montanez MD [address] [place] [address] [address] [place] [address] [email or web address] Insurance Assigned Provider 10/12/23 Nitza Lopez, RN [address] [place] [address] [email or web address] iCMP Carbon Cutter 02/18/24 03/25/24 documented as of this encounter Additional Source Comments The information contained in this document represents components of the legal health record. It is not the complete legal health record.[facility]
--- OUTSIDE RECORDS SUMMARY | 2025-03-09 14:18 | XMS_ITS | Encounter Summary ---
Author Organization [facility] Address [address] [place] [address] Phone Care Team Providers Care Pharmacy Technician Instructor Name Role Phone Yoli Murray DAMPPROOFER Unavailable [phone] Aaliyah Garg OPERATOR CONTROL ROOM Unavailable [phone] Darwin Montanez MD Unavailable [phone] Jaden Boles MD Unavailable Unavailable Darwin Montanez MD Primary Care Provider [phone] Darwin Montanez MD Unavailable [phone] Nitza Lopez RN Unavailable [phone] Encounter Details Date Type Department Care Team (Late st Contact Info) Description 01/30/2019 Procedure Pass [address] [address] Social History Tobacco Use Types Packs/Day Years [...] Info) Description 05/22/2024 Procedure Pass [facility] [address] [place] [address] 06/01/2025 9:30 AM EST Appointment [facility] [address] [place] [address] Castillo Valles MD 50 [place] [address] 06/18/2025 10:00 AM EST Office Visit [facility] [address] Floor, [address] [place] [address] Castillo Valles MD 50 [place] [address] 12/01/2025 3:40 PM EDT Office Visit [facility] [address] [place] [address] Darwin Montanez MD [address] [place] [address] documented as of this encounter Visit Diagnoses Not on filedocumented in this encounter Additional Health Concerns Infection Onset Date Last Indicated Resolved Time CoV-Risk 03/08/2020 03/09/2020 03/22/2020 1:24 AM EDT documented as of this encounter Care Teams Pharmacy Technician Instructor Relationship Specialty Start Date End Date Darwin Montanez MD [address] [place] [address] PCP - General 04/23/17 Yoli Murray NP [address] [place] [address] Historical LMR Provider 04/22/17 Aaliyah Garg, OPERATOR CONTROL ROOM [address] [place] [address] Historical LMR Provider 04/22/17 Darwin Montanez MD [address] [place] [address] [place] [address] [email or web address] Historical LMR Provider 04/22/17 Jaden Boles MD Historical LMR Provider 04/22/17 07/15/21 Darwin Montanez MD [address] [place] [address] [place] [address] [email or web address] Insurance Assigned Provider 10/12/23 Nitza Lopez, RN [address] [place] [address] [email or web address] [employer] Graphic Design Specialist 02/18/24 03/25/24 documented as of this encounter Additional Source Comments The information contained in this document represents components of the legal health record. It is not the complete legal health record.[facility]
--- OUTSIDE RECORDS SUMMARY | 2025-03-09 14:19 | XMS_ITS | Encounter Summary ---
Author Organization [facility] Address [address] [facility] [address] [place] [address] Phone Care Team Providers Care Burner Hand Name Role Phone MurrayLeninEitzen ERP ENGINEER Unavailable [phone] Aaliyah Garg DEVELOPING MACHINE OPERATOR Unavailable Darwin Montanez MD Unavailable [phone] Darwin Montanez MD Primary Care Provider [phone] Darwin Montanez MD Unavailable [phone] Nitza Lopez RN Unavailable Encounter Details Date Type Department Care Team (Late st Contact Info) Description 03/11/2024 Telephone [facility] [place] [facility] 14 [facility] [address] [place] [address] Darwin Montanez MD 14 [facility] [address] [place], [place] [phone] [email or web address] Social History Tobacco Use [...] Info) Description 05/22/2024 Procedure Pass [facility] [address] [place] [address] 06/01/2025 9:30 AM EST Appointment [facility] [address] [place] [address] Castillo Valles MD [address] [place] [address] 06/18/2025 10:00 AM EST Office Visit [facility] [address]rd Floor, [address] [place] [address] Castillo Valles MD [address] [place] [address] 12/01/2025 3:40 PM EDT Office Visit [facility] [place] [facility] 14 [facility] [address] [place] [address] Darwin Montanez MD 14 [facility] [address] [place] [address] documented as of this encounter Visit Diagnoses Not on filedocumented in this encounter Additional Health Concerns Assessment Noted Time PHQ-9 Depression Total Score: 2 07/04/20 23 12:49 PM EST PHQ-2 Depression Total Score: 0 11/14/19 24 10:20 AM EDT documented as of this encounter Care Teams Burner Hand Relationship Specialty Start Date End Date Darwin Montanez MD [address] [place] [address] PCP - General 04/23/17 Yoli Murray NP [address] [place] [address] Historical LMR Provider 04/22/17 Aaliyah Garg CNP [address] [place] [address] Historical LMR Provider 04/22/17 Darwin Montanez MD [address] [place] [address] Historical LMR Provider 04/22/17 Darwin Montanez MD [address] [place] [address] Insurance Assigned Provider 10/12/23 Nitza Lopez, JESUS [address] [place] [address] iCMP Horseradish Grinder 02/18/24 03/25/24 documented as of this encounter Additional Source Comments The information contained in this document represents components of the legal health record. It is not the complete legal health record.[facility]
--- OUTSIDE RECORDS SUMMARY | 2025-03-09 14:19 | XMS_ITS | Encounter Summary ---
Author Organization [facility] Address [address] [place] [address] Phone Care Team Providers Care Cfa Name Role Phone Yoli Murray LOFTER Unavailable [phone] Aaliyah Garg EXHIBITS CURATOR Unavailable [phone] Darwin Montanez MD Unavailable [phone] Jaden Boles MD Unavailable Unavailable Darwin Montanez MD Primary Care Provider [phone] Darwin Montanez MD Unavailable [phone] Nitza Lopez RN Unavailable [phone] Encounter Details Date Type Department Care Team (Late st Contact Info) Description 06/28/2021 Procedure Pass [facility], Ct Scan - [address] [address] Social History Tobacco Use Types Packs/Day Years [...] 6:54 PM EST Ariadne Merino, JESUS * Mentor Suicide Severity Rating Scale (Screener/Recent Self-Report) Question [...] Info) Description 05/22/2024 Procedure Pass [facility] [address] [place] [address] 06/01/2025 9:30 AM EST Appointment Echo [facility] [address] [place] [address] Castillo Valles MD [address] [place] [address] 06/18/2025 10:00 AM EST Office Visit [facility] [address] Floor, [address] [place] [address] Castillo Valles MD [address] [place] [address] 12/01/2025 3:40 PM EDT Office Visit [facility] [place] [facility] 14 [facility] [address] [place] [address] Darwin Montanez MD [address] [place] [address] [place] [address] documented as of this encounter Visit Diagnoses Not on filedocumented in this encounter Additional Health Concerns Assessment Noted Time PHQ-2 Depression Total Score: 1 07/06/20 19 2:52 PM EST documented as of this encounter Care Teams Cfa Relationship Specialty Start Date End Date Darwin Montanez MD [address] [place] [address] PCP - General 04/23/17 Yoli Murray, JAI [address] [place] [address] Historical LMR Provider 04/22/17 Aaliyah Garg CNP [address] [place] [address] Historical LMR Provider 04/22/17 Darwin Montanez MD [address] [place] [address] Historical LMR Provider 04/22/17 Jaden Boles MD Historical LMR Provider 04/22/17 07/15/21 Darwin Montanez MD [address] [place] [address] Insurance Assigned Provider 10/12/23 Nitza Lopez, JESUS [address] [place] [address] iCMP Floor Cleaner 02/18/24 03/25/24 documented as of this encounter Additional Source Comments The information contained in this document represents components of the legal health record. It is not the complete legal health record.[facility]
--- OUTSIDE RECORDS SUMMARY | 2025-03-09 14:19 | XMS_ITS | Encounter Summary ---
Author Organization [facility] Address [address] [place] [address] Phone Care Team Providers Care Hand Quilter Name Role Phone Yoli Murray CEMENT GRINDING MILL OPERATOR Unavailable [phone] Aaliyah Garg HYDRAULIC ASSEMBLER Unavailable [phone] Darwin Montanez MD Unavailable [phone] Darwin Montanez MD Primary Care Provider [phone] Darwin Montanez MD Unavailable [phone] Nitza Lopez RN Unavailable [phone] Reason for Referral * MRI/CAT Scan - Closed Specialty Diagnoses / Procedures Referred By Chaya montez Referred To Contact Radiology Diagnoses Lumbar radiculopathy Procedures MRI Lumbar Spine Santos Lee DO Phone: tel: fax: [email or web address] [address] [address] Phone: tel: Referral ID Status Reason Start Date Expiration Date Visits Re quested Visits Authorized [id number] Closed 03/05/2022 04/04/2022 1 1 Encounter Details Date Type Department Care Team (Latest Contact Info) Description 02/13/2022 Transcribe Orders [facility] Department [address] [place] [address] Santos Lee DO [address] [place] [address] [email or web address] Lumbar radiculopathy (Primary Dx) Social History Tobacco [...] Info) Description 05/22/2024 Procedure Pass [facility] [address] [place] [address] 06/01/2025 9:30 AM EST Appointment Echo Lab [address] [place] [address] Castillo Valles MD [address] [place] [address] 06/18/2025 10:00 AM EST Office Visit [facility] [address]rd Floor, [address] [place] [address] Castillo Valles MD [address] [place] [address] 12/01/2025 3:40 PM EDT Office Visit [facility] [place] [facility] 14 [facility] [address] [place] [address] Darwin Montanez MD 14 [facility] [address] [place] [address] documented as of this encounter Results * [...] Severe spinal canal stenosis. Mild left and vvwj-io-mshvkzmf right foraminal stenosis. Findings are similar to [...] Severe spinal canal stenosis. Mild left and nzgu-qj-fmixbmjhorxhl foraminal stenosis. Findings are similar to prior. [...] documented as of this encounter Care Teams Hand Quilter Relationship Specialty Start Date End Date Darwin Montanez MD [address] [place] [address] PCP - General 04/23/17 Yoli Murray NP [address] [place] [address] Historical LMR Provider 04/22/17 Aaliyah Garg, MATILDE [address] [place] [address] Historical LMR Provider 04/22/17 Darwin Montanez MD [address] [place] [address] Historical LMR Provider 04/22/17 Darwin Montanez MD [address] [place] [address] Insurance Assigned Provider 10/12/23 Nitza Lopez, JESUS [address] [place] [address] iCMP Project Intern 02/18/24 03/25/24 documented as of this encounter Additional Source Comments The information contained in this document represents components of the legal health record. It is not the complete legal health record.[facility]
--- OUTSIDE RECORDS SUMMARY | 2025-03-09 14:19 | XMS_ITS | Encounter Summary ---
Author Organization [facility] Address [address] [address] Phone Care Team Providers Care Barrel Cap Setter Name Role Phone Yoli Murray FRICTION WELDING MACHINE OPERATOR Unavailable [phone] Aaliyah Garg RACECOURSE BARRIER ATTENDANT Unavailable [phone] Darwin Montanez MD Unavailable [phone] Darwin Montanez MD Primary Care Provider [phone] Darwin Montanez MD Unavailable [phone] Encounter Details Date Type Department Care Team (Late st Contact Info) Description 11/13/2024 Procedure Pass [facility] Admitting Dept Virtual Department [address] [place] [address] [phone] Social History Tobacco Use Types Packs/Day Years [...] Info) Description 05/22/2024 Procedure Pass [facility] [address] [place] [address] 06/01/2025 9:30 AM EST Appointment Echo [facility] [address] [place] [address] Castillo Valles MD [address] [place] [address] 06/18/2025 10:00 AM EST Office Visit [facility] [address]rd Floor, [address] [place] [address] Castillo Valles MD [address] [place] [address] 12/01/2025 3:40 PM EDT Office Visit [facility] [place] [facility] 14 [facility] [address] [place] [address] Darwin Montanez MD 14 [facility] [address] [place] [address] documented as of this encounter Visit Diagnoses Not on filedocumented in this encounter Additional Health Concerns Assessment Noted Time PHQ-9 Depression Total Score: 2 07/04/20 23 12:49 PM EST PHQ-2 Depression Total Score: 0 11/14/19 10:20 AM EDT documented as of this encounter Care Teams Barrel Cap Setter Relationship Specialty Start Date End Date Darwin Montanez MD [address] [place] [address] PCP - General 04/23/17 Yoli Murray NP [address] [place] [address] Historical LMR Provider 04/22/17 Aaliyah Garg CNP [address] [place] [address] Historical LMR Provider 04/22/17 Darwin Montanez MD [address] [place] [address] Historical LMR Provider 04/22/17 Darwin Montanez MD [address] [place] [address] Insurance Assigned Provider 10/12/23 documented as of this encounter Additional Source Comments The information contained in this document represents components of the legal health record. It is not the complete legal health record.[facility]
--- OUTSIDE RECORDS SUMMARY | 2025-03-09 14:19 | XMS_ITS | Encounter Summary ---
Author Organization [facility] Address [facility] [address] [address] Phone Care Team Providers Care Sort Line Name Role Phone MurrayLeninWoodland TITLE AGENT Unavailable [phone] Aaliyah Gagr STRATEGIC ADVISOR Unavailable [phone] Darwin Montanez MD Unavailable [phone] Darwin Montanez MD Primary Care Provider [phone] Darwin Montanez MD Unavailable [phone] Encounter Details Date Type Department Care Team (Late st Contact Info) Description 05/27/2024 Procedure Pass [facility], [address] [address] Social History Tobacco Use Types Packs/Day Years [...] Info) Description 05/22/2024 Procedure Pass [facility] [place] [address] [place] [address] 06/01/2025 9:30 AM EST Appointment [facility] [place] [address] [place] [address] Castillo Valles MD [address] [place] [address] 06/18/2025 10:00 AM EST Office Visit [facility] [address]rd Floor, [address] [place] [address] Castillo Valles MD [address] [place] [address] 12/01/2025 3:40 PM EDT Office Visit [facility] [place] [facility] 14 [facility] [address] [place] [address] Darwin Montanez MD 14 [facility] [address] [place] [address] documented as of this encounter Visit Diagnoses Not on filedocumented in this encounter Additional Health Concerns Assessment Noted Time PHQ-9 Depression Total Score: 2 07/04/20 23 12:49 PM EST PHQ-2 Depression Total Score: 0 11/14/19 24 10:20 AM EDT documented as of this encounter Care Teams Sort Line Relationship Specialty Start Date End Date Darwin Montanez MD [address] [place] [address] [place] [address] PCP - General 04/23/17 Yoli Murray NP [address] [place] [address] Historical LMR Provider 04/22/17 Aaliyah Garg CNP [address] [place] [address] Historical LMR Provider 04/22/17 Darwin Montanez MD [address] [place] [address] Historical LMR Provider 04/22/17 Darwin Montanez MD [address] [place] [address] Insurance Assigned Provider 10/12/23 documented as of this encounter Additional Source Comments The information contained in this document represents components of the legal health record. It is not the complete legal health record.[facility]
--- OUTSIDE RECORDS SUMMARY | 2025-03-09 14:19 | XMS_ITS | Encounter Summary ---
Author Organization [facility] Address [address] [place] [address] Phone Care Team Providers Care Chinese Language Professor Name Role Phone Yoli Murray LICENSED INSURANCE AGENT Unavailable [phone] Aaliyah Garg CARPET MECHANIC Unavailable [phone] Darwin Montanez MD Unavailable [phone] Jaden Boles MD Unavailable Unavailable Darwin Montanez MD Primary Care Provider [phone] Darwin Montanez MD Unavailable [phone] Nitza Lopez RN Unavailable [phone] Encounter Details Date Type Department Care Team (Late st Contact Info) Description 05/10/2021 Procedure Pass Echo Lab [address] [place] [address] Social History Tobacco Use Types Packs/Day Years [...] Info) Description 05/22/2024 Procedure Pass Echo [facility] [address] [place] [address] 06/01/2025 9:30 AM EST Appointment Echo [facility] [place] [place] [address] Castillo Valles MD 50 [place] [address] 06/18/2025 10:00 AM EST Office Visit [facility] [address] Floor, [address] [place] [address] Castillo Valles MD 50 [place] [address] 12/01/2025 3:40 PM EDT Office Visit [facility] Internal Medicine [address] [place] [address] Darwin Montanez MD [address] [place] [address] documented as of this encounter Visit Diagnoses Not on filedocumented in this encounter Additional Health Concerns Assessment Noted Time PHQ-2 Depression Total Score: 1 07/06/20 19 2:52 PM EST documented as of this encounter Care Teams Chinese Language Professor Relationship Specialty Start Date End Date Darwin Montanez MD [address] [place] [address] PCP - General 04/23/17 Yoli Murray, LICENSED INSURANCE AGENT [address] [place] [address] Historical LMR Provider 04/22/17 Aaliyah Garg, CARPET MECHANIC [address] [place] [address] Historical LMR Provider 04/22/17 Darwin Montanez MD [address] [place] [address] [place] [address] [email or web address] Historical LMR Provider 04/22/17 Jaden Boles MD Historical LMR Provider 04/22/17 07/15/21 Darwin Montanez MD [address] [place] [address] [place] [address] [email or web address] Insurance Assigned Provider 10/12/23 Nitza Lopez RN [address] [place] [address] [email or web address] iCMP Rail Flaw Detector Operator 02/18/24 03/25/24 documented as of this encounter Additional Source Comments The information contained in this document represents components of the legal health record. It is not the complete legal health record.[facility]
--- OUTSIDE RECORDS SUMMARY | 2025-03-09 14:19 | XMS_ITS | Encounter Summary ---
Author Organization [facility] Address [address] [place] [address] Phone Care Team Providers Care Gem Technician Name Role Phone Yoli Murray UNDER CUTTING MACHINE OPERATOR Unavailable [phone] Aaliyah Garg RADIO PROGRAM DIRECTOR Unavailable [phone] Darwin Montanez MD Unavailable [phone] Jaden Boles MD Unavailable Unavailable Darwin Montanez MD Primary Care Provider [phone] Darwin Montanez MD Unavailable [phone] Nitza Lopez RN Unavailable [phone] Encounter Details Date Type Department Care Team (Late st Contact Info) Description 06/28/2021 Procedure Pass [facility] [address] [place] [address] Social History Tobacco Use Types Packs/Day Years [...] 6:54 PM EST Ariadne Merino, JESUS * [place] Suicide Severity Rating Scale (Screener/Recent Self-Report) Question [...] Description 05/22/2024 Procedure Pass Echo Lab [address] [place] [address] 06/01/2025 9:30 AM EST Appointment Echo Lab [address] [place] [address] Castillo Valles MD [address] [place] [address] 06/18/2025 10:00 AM EST Office Visit [facility] [address] Floor, [address] [place] [address] Castillo Valles MD [address] [place] [address] 12/01/2025 3:40 PM EDT Office Visit [facility] [place] [facility] 14 [facility] [address] [place] [address] Darwin Montanez MD [address] [place] [address] [place] [address] documented as of this encounter Visit Diagnoses Not on filedocumented in this encounter Additional Health Concerns Assessment Noted Time PHQ-2 Depression Total Score: 1 07/06/20 19 2:52 PM EST documented as of this encounter Care Teams Gem Technician Relationship Specialty Start Date End Date Darwin Montanez MD [address] [place] [address] [place] [address] PCP - General 04/23/17 Yoli Murray, JAI [address] [place] [address] Historical LMR Provider 04/22/17 Aaliyah Garg, MATILDE [address] [place] [address] Historical LMR Provider 04/22/17 Darwin Montanez MD [address] [place] [address] Historical LMR Provider 04/22/17 Jaden Boles MD Historical LMR Provider 04/22/17 07/15/21 Darwin Montanez MD [address] [place] [address] Insurance Assigned Provider 10/12/23 Nitza Lopez RN [address] [place] [address] iCMP [employer] President 02/18/24 03/25/24 documented as of this encounter Additional Source Comments The information contained in this document represents components of the legal health record. It is not the complete legal health record.[facility]
--- OUTSIDE RECORDS SUMMARY | 2025-03-09 14:19 | XMS_ITS | Encounter Summary ---
Author Organization [facility] Address [address] [place] [address] Phone Care Team Providers Care Emergency Medical Dispatcher Name Role Phone Yoli Murray ALTERATION MANAGER Unavailable [phone] Aaliyah Garg AIRFIELD MANAGER Unavailable [phone] Darwin Montanez MD Unavailable [phone] Jaden Boles MD Unavailable Unavailable Darwin Montanez MD Primary Care Provider [phone] Darwin Montanez MD Unavailable [phone] Nitza Lopez RN Unavailable [phone] Encounter Details Date Type Department Care Team (Late st Contact Info) Description 01/12/2021 Procedure Pass [facility] Echo Lab 30 [place] [address] Social History Tobacco Use Types Packs/Day Years [...] Info) Description 05/22/2024 Procedure Pass Echo Lab [address] [place] [address] 06/01/2025 9:30 AM EST Appointment Echo Lab [place] [place] [address] Castillo Valles MD 50 [place] [address] 06/18/2025 10:00 AM EST Office Visit [facility] [address] Floor, [address] [place] [address] Castillo Valles MD 50 [place] [address] 12/01/2025 3:40 PM EDT Office Visit [facility] Internal Medicine [address] [place] [address] Darwin Montanez MD [address] [place] [address] documented as of this encounter Visit Diagnoses Not on filedocumented in this encounter Additional Health Concerns Assessment Noted Time PHQ-2 Depression Total Score: 1 07/06/20 19 2:52 PM EST documented as of this encounter Care Teams Emergency Medical Dispatcher Relationship Specialty Start Date End Date Darwin Montanez MD [address] [place] [address] PCP - General 04/23/17 Yoli Murray, ALTERATION MANAGER [address] [place] [address] Historical LMR Provider 04/22/17 Aaliyah Garg, AIRFIELD MANAGER [address] [place] [address] Historical LMR Provider 04/22/17 Darwin Montanez MD [address] [place] [address] [place] [address] [email or web address] Historical LMR Provider 04/22/17 Jaden Boles MD Historical LMR Provider 04/22/17 07/15/21 Darwin Montanez MD [address] [place] [address] [place] [address] [email or web address] Insurance Assigned Provider 10/12/23 Nitza Lopez RN [address] [place] [address] [email or web address] iCMP Law Firm Partner 02/18/24 03/25/24 documented as of this encounter Additional Source Comments The information contained in this document represents components of the legal health record. It is not the complete legal health record.[facility]
--- OUTSIDE RECORDS SUMMARY | 2025-03-09 14:19 | XMS_ITS | Encounter Summary ---
Author Organization [facility] Address [address] [place] [address] Phone Care Team Providers Care Drywall Finisher Name Role Phone Yoli Murray FLAP PRESSER Unavailable [phone] Aaliyah Garg [facility] Unavailable [phone] Darwin Montanez MD Unavailable [phone] Darwin Montanez MD Primary Care Provider [phone] Darwin Montanez MD Unavailable [phone] Nitza Lopez RN Unavailable [phone] Encounter Details Date Type Department Care Team (Late st Contact Info) Description 02/13/2022 Procedure Pass [facility], [address] [address] Social History Tobacco Use Types Packs/Day Years [...] Info) Description 05/22/2024 Procedure Pass Echo Lab [address] [place] [address] 06/01/2025 9:30 AM EST Appointment Echo Lab [address] [place] [address] Castillo Valles MD 50 [place] [address] 06/18/2025 10:00 AM EST Office Visit [facility] [address]rd Floor, [address] [place] [address] Castillo Valles MD 50 [place] [address] 12/01/2025 3:40 PM EDT Office Visit [facility] [place] [facility] [address] [place] [address] Darwin Montanez MD [address] [place] [address] documented as of this encounter Visit Diagnoses Not on filedocumented in this encounter Additional Health Concerns Assessment Noted Time PHQ-2 Depression Total Score: 1 07/06/20 19 2:52 PM EST documented as of this encounter Care Teams Drywall Finisher Relationship Specialty Start Date End Date Darwin Montanez MD [address] [place] [address] PCP - General 04/23/17 Yoli Murray NP [address] [place] [address] Historical LMR Provider 04/22/17 Aaliyah Garg, MATILDE [address] [place] [address] Historical LMR Provider 04/22/17 Darwin Montanez MD [facility] [address] [place] [address] [email or web address] Historical LMR Provider 04/22/17 Darwin Montanez MD [address] [place] [address] [place] [address] Insurance Assigned Provider 10/12/23 Nitza Lopez, RN 10 [place] [address] [email or web address] iCMP Bookmobile Librarian 02/18/24 03/25/24 documented as of this encounter Additional Source Comments The information contained in this document represents components of the legal health record. It is not the complete legal health record.[facility]
--- OUTSIDE RECORDS SUMMARY | 2025-03-09 14:19 | XMS_ITS | Encounter Summary ---
Author Organization [facility] Address [address] [place] [address] Phone Care Team Providers Care Consultant Electronics Name Role Phone Yoli Murray FAMILY PSYCHOLOGIST Unavailable [phone] Aaliyah Garg SUPERVISOR BENZENE REFINING Unavailable [phone] Darwin Montanez MD Unavailable [phone] Jaden Boles MD Unavailable Unavailable Darwin Montanez MD Primary Care Provider [phone] Darwin Montanez MD Unavailable [phone] Nitza Lopez RN Unavailable [phone] Encounter Details Date Type Department Care Team (Late st Contact Info) Description 06/29/2021 Procedure Pass Non-Invasive Cardiology [address] [place] [address] Social History Tobacco Use Types Packs/Day Years [...] Info) Description 05/22/2024 Procedure Pass Echo Lab [address] [place] [address] 06/01/2025 9:30 AM EST Appointment Echo Lab [address] [place] [address] Castillo Valles MD 50 [place] [address] 06/18/2025 10:00 AM EST Office Visit [facility] [address] [place] [address] Dr [address]rd Floor, [address] [place] [address] Castillo Valles MD [address] [place] [address] 12/01/2025 3:40 PM EDT Office Visit [facility] Internal Medicine [address] [place] [address] Darwin Montanez MD [address] [place] [address] documented as of this encounter Visit Diagnoses Not on filedocumented in this encounter Additional Health Concerns Assessment Noted Time PHQ-2 Depression Total Score: 1 07/06/20 19 2:52 PM EST documented as of this encounter Care Teams Consultant Electronics Relationship Specialty Start Date End Date Darwin Montanez MD [address] [place] [address] PCP - General 04/23/17 Yoli Murray FAMILY PSYCHOLOGIST [address] [place] [address] Historical LMR Provider 04/22/17 Aaliyah Garg, SUPERVISOR BENZENE REFINING [address] [place] [address] 244[address] Historical LMR Provider 04/22/17 Darwin Montanez MD [address] [place] [address] [place] [address] [email or web address] Historical LMR Provider 04/22/17 Jaden Boles MD Historical LMR Provider 04/22/17 07/15/21 Darwin Montanez MD [address] [place] [address] [place] [address] [email or web address] Insurance Assigned Provider 10/12/23 Nitza Lopez RN [address] [place] [address] [email or web address] iCMP Metal Burnisher 02/18/24 03/25/24 documented as of this encounter Additional Source Comments The information contained in this document represents components of the legal health record. It is not the complete legal health record.[facility]
--- OUTSIDE RECORDS SUMMARY | 2025-03-09 14:19 | XMS_ITS | Encounter Summary ---
Author Organization [facility] Address [address] [place] [address] Phone Care Team Providers Care Scientific Database Curator Name Role Phone MurrayYoli HOG CONFINEMENT SYSTEM MANAGER Unavailable [phone] Aaliyah Garg BINDER STRIPPER HAND Unavailable [phone] Darwin Montanez MD Unavailable Jaden Boles MD Unavailable Unavailable Darwin Montanez MD Primary Care Provider [phone] Darwin Montanez MD Unavailable Nitza Lopez RN Unavailable [phone] Encounter Details Date Type Department Care Team (Late st Contact Info) Description 10/24/2017 Transcribe Orders [facility] [address] [place] [address] Darwin Montanez MD [address] [place] [address] [place] [address] [email or web address] Social History Tobacco Use [...] Info) Description 05/22/2024 Procedure Pass [facility] [address] [place] [address] 06/01/2025 9:30 AM EST Appointment Echo [facility] [address] [place] [address] Castillo Valles MD 50 [place] [address] 06/18/2025 10:00 AM EST Office Visit [facility] [address] Floor, [address] [place] [address] Castillo Valles MD [address] [place] [address] 12/01/2025 3:40 PM EDT Office Visit [facility] Internal Medicine [address] [place] [address] Darwin Montanez MD [address] [place] [address] documented as of this encounter Visit Diagnoses Not on filedocumented in this encounter Additional Health Concerns Infection Onset Date Last Indicated Resolved Time CoV-Risk 03/08/2020 03/09/2020 03/22/2020 1:24 AM EDT documented as of this encounter Care Teams Scientific Database Curator Relationship Specialty Start Date End Date Darwin Montanez MD [address] [place] [address] PCP - General 04/23/17 Yoli Murray NP [address] [place] [address] Historical LMR Provider 04/22/17 Aaliyah Garg, MATILDE [address] [place] [address] [email or web address] Historical LMR Provider 04/22/17 Darwin Montanez MD [address] [place] [address] [place] [address] [email or web address] Historical LMR Provider 04/22/17 Jaden Boles MD Historical LMR Provider 04/22/17 07/15/21 Darwin Montanez MD [address] [place] [address] [place] [address] [email or web address] Insurance Assigned Provider 10/12/23 Nitza Lopez RN [address] [place] [address] [email or web address] iCMP Sergeant Missile Crewman 02/18/24 03/25/24 documented as of this encounter Additional Source Comments The information contained in this document represents components of the legal health record. It is not the complete legal health record.[facility]
--- OUTSIDE RECORDS SUMMARY | 2025-03-09 14:19 | XMS_ITS | Encounter Summary ---
Author Organization [facility] Address [address] [place] [address] Phone Care Team Providers Care Instructor Hairspring Name Role Phone Yoli Murray SLIP BRIDGE OPERATOR Unavailable [phone] Aaliyah Garg CHANCELLOR Unavailable [phone] Darwin Montanez MD Unavailable [phone] Jaden Boles MD Unavailable Unavailable Darwin Montanez MD Primary Care Provider [phone] Darwin Montanez MD Unavailable [phone] Nitza Lopez RN Unavailable [phone] Encounter Details Date Type Department Care Team (Late st Contact Info) Description 06/28/2021 Procedure Pass [facility] [place], [facility] Scan - [address] [address] Social History Tobacco Use Types Packs/Day Years [...] 6:54 PM EST Ariadne Merino, JESUS * [place] Suicide Severity Rating Scale (Screener/Recent Self-Report) [...] Info) Description 05/22/2024 Procedure Pass Echo Lab [address] [place] [address] 06/01/2025 9:30 AM EST Appointment Echo Lab [address] [place] [address] Castillo Valles MD [address] [place] [address] 06/18/2025 10:00 AM EST Office Visit [facility] [address] Floor, [address] [place] [address] Castillo Valles MD [address] [place] [address] 12/01/2025 3:40 PM EDT Office Visit [facility] [place] [facility] 14 [facility] [address] [place] [address] Darwin Montanez MD [address] [place] [address] [place] [address] documented as of this encounter Visit Diagnoses Not on filedocumented in this encounter Additional Health Concerns Assessment Noted Time PHQ-2 Depression Total Score: 1 07/06/20 19 2:52 PM EST documented as of this encounter Care Teams Instructor Hairspring Relationship Specialty Start Date End Date Darwin Montanez MD [address] [place] [address] PCP - General 04/23/17 Yoli Murray, JAI [address] [place] [address] Historical LMR Provider 04/22/17 Aaliyah Garg CNP [address] [place] [address] Historical LMR Provider 04/22/17 Darwin Montanez MD [address] [place] [address] Historical LMR Provider 04/22/17 Jaden Boles MD Historical LMR Provider 04/22/17 07/15/21 Darwin Montanez MD [address] [place] [address] 10028 Insurance Assigned Provider 10/12/23 Nitza Lopez, JESUS [address] [place] [address] iCMP Store Worker 02/18/24 03/25/24 documented as of this encounter Additional Source Comments The information contained in this document represents components of the legal health record. It is not the complete legal health record.[facility]
--- OUTSIDE RECORDS SUMMARY | 2025-03-09 14:19 | XMS_ITS | Encounter Summary ---
Author Organization [facility] Address [address] [place] [address] Phone Care Team Providers Care Miner Assistant Name Role Phone Yoli Murray GROUP THERAPIST Unavailable [phone] Aaliyah Garg DEVELOPMENT ADMINISTRATOR Unavailable [phone] Darwin Montanez MD Unavailable [phone] Darwin Montanez MD Primary Care Provider [phone] Darwin Montanez MD Unavailable [phone] Nitza Lopez RN Unavailable [phone] Encounter Details Date Type Department Care Team ([facility] Contact Info) Description 11/01/2022 Procedure Pass [facility] [address] [place] [address] Social History Tobacco Use Types Packs/Day Years [...] Upcoming Encounters Date Type Department Care Team ([facility] Contact Info) Description 05/22/2024 Procedure Pass Echo Lab [address] [place] [address] 06/01/2025 9:30 AM EST Appointment Echo Lab [address] [place] [address] Castillo Valles MD 50 [place] [address] 06/18/2025 10:00 AM EST Office Visit [facility] [address] [place] [address] Dr [address] Floor, [address] [place] [address] Castillo Valles MD [address] [place] [address] 12/01/2025 3:40 PM EDT Office Visit [facility] Internal Medicine [address] [place] [address] Darwin Montanez MD [address] [place] [address] documented as of this encounter Visit Diagnoses Not on filedocumented in this encounter Additional Health Concerns Assessment Noted Time PHQ-2 Depression Total Score: 1 07/06/20 19 2:52 PM EST documented as of this encounter Care Teams Miner Assistant Relationship Specialty Start Date End Date Darwin Montanez MD [address] [place] [address] PCP - General 04/23/17 Yoli Murray NP [address] [place] [address] Historical LMR Provider 04/22/17 Aaliyah Garg, MATILDE [address] [place] [address] [email or web address] Historical LMR Provider 04/22/17 Darwin Montanez MD [address] [place] [address] [place] [address] Historical LMR Provider 04/22/17 Darwin Montanez MD [address] [place] [address] [place] [address] [email or web address] Insurance Assigned Provider 10/12/23 Nitza Lopez, RN [address] [place] [address] [email or web address] iCMP Gas Line Installer Supervisor 02/18/24 03/25/24 documented as of this encounter Additional Source Comments The information contained in this document represents components of the legal health record. It is not the complete legal health record.[facility]
--- OUTSIDE RECORDS SUMMARY | 2025-03-09 14:19 | XMS_ITS | Encounter Summary ---
Author Organization [facility] Address [address] [place] [address] Phone Care Team Providers Care Personal Computer Network Engineer Name Role Phone Yoli Murray JOURNEYMAN SHEET METAL WORKER Unavailable [phone] Aaliyah Garg TUB CHUCKER Unavailable [phone] Darwin Montanez MD Unavailable [phone] Jaden Boles MD Unavailable Unavailable Darwin Montanez MD Primary Care Provider [phone] Darwin Montanez MD Unavailable [phone] Nitza Lopez RN Unavailable [phone] Encounter Details Date Type Department Care Team (Late st Contact Info) Description 06/28/2021 Procedure Pass [address] [address] Social History Tobacco Use Types Packs/Day Years [...] 6:54 PM EST Ariadne Merino, JESUS * [place] Suicide Severity Rating Scale (Screener/Recent Self-Report) Question [...] Description 05/22/2024 Procedure Pass [facility] [address] [place] [address] 06/01/2025 9:30 AM EST Appointment Echo Lab [address] [place] [address] Castillo Valles MD [address] [place] [address] 06/18/2025 10:00 AM EST Office Visit [facility] [address] 3[address] Floor, [address] [place] [address] Castillo Valles MD [address] [place] [address] 12/01/2025 3:40 PM EDT Office Visit [facility] [place] [facility] 14 [facility] [address] [place] [address] Darwin Montanez MD [address] [place] [address] [place] [address] documented as of this encounter Visit Diagnoses Not on filedocumented in this encounter Additional Health Concerns Assessment Noted Time PHQ-2 Depression Total Score: 1 07/06/20 19 2:52 PM EST documented as of this encounter Care Teams Personal Computer Network Engineer Relationship Specialty Start Date End Date Darwin Montanez MD [address] [place] [address] PCP - General 04/23/17 Yoli Murray, JAI [address] [place] [address] Historical LMR Provider 04/22/17 Aaliyah Garg CNP [address] [place] [address] Historical LMR Provider 04/22/17 Darwin Montanez MD [address] [place] [address] Historical LMR Provider 04/22/17 Jaden Boles MD Historical LMR Provider 04/22/17 07/15/21 Darwin Montanez MD [address] [place] [address] Insurance Assigned Provider 10/12/23 Nitza Lopez, JESUS [address] [place] [address] iCMP Toby Maker 02/18/24 03/25/24 documented as of this encounter Additional Source Comments The information contained in this document represents components of the legal health record. It is not the complete legal health record.[facility]
--- OUTSIDE RECORDS SUMMARY | 2025-03-09 14:19 | XMS_ITS | Encounter Summary ---
Author Organization [facility] Address [address] [place] [address] [place] [address] Phone Care Team Providers Care Certified Energy Manager Name Role Phone Yoli Murray Ann LINE PALLETIZER Unavailable [phone] Aaliyah Garg Jo PRECISION LAYOUT WORKER Unavailable [phone] Darwin Montanez MD Unavailable Darwin Montanez MD Primary Care Provider [phone] Darwin Montanez MD Unavailable Reason for Visit * Reason Comments Medication Refill Chlorthalidone Encounter Details Date Type Department Care Team (Late st Contact Info) Description 12/19/2024 Refill [facility] [place] [facility] 14 [facility] [address] [place] [address] Darwin Montanez MD 14 [facility] [address] [place], [place] [phone] [email or web address] Medication Refill (Chlorthalidone) Social History Tobacco Use [...] 11/23/2024 Darwin Montanez MD - [facility] > Requested f/u: Not specified Upcoming visit: 12/01/2025 Darwin Montanez MD - Internal [facility] ACTIONS TAKEN BY Estefania Dodge CMA - [...] Procedure [place] [address] 06/01/2025 9:30 AM EST [place] [address] Castillo Valles MD [address] [place] [address] 06/18/2025 10:00 AM EST Office Visit [facility] [address], [address] [place] [address] Castillo Valles MD [address] [place] [address] 12/01/2025 3:40 PM EDT Office Visit [facility] [address] [address] Darwin Montanez MD [address] [place] [address] documented as of this encounter Visit Diagnoses Diagnosis Essential hypertension Unspecified essential hypertension documented in this encounter Additional Health Concerns Assessment Noted Time PHQ-9 Depression Total Score: 2 07/04/20 23 12:49 PM EST PHQ-2 Depression Total Score: 0 11/24/19 25 3:36 PM EDT documented as of this encounter Care Teams Certified Energy Manager Relationship Specialty Start Date End Date Darwin Montanez MD [address] [place] [address] PCP - General 04/23/17 Yoli Murray LINE PALLETIZER [address] [place] [address] Historical LMR Provider 04/22/17 Aaliyah Garg CNP [address] [place] [address] Historical LMR Provider 04/22/17 Darwin Montanez MD [address] [place] [address] Historical LMR Provider 04/22/17 Darwin Montanez MD [address] [place] [address] [address] [place] [address] [email or web address] Insurance Assigned Provider 10/12/23 documented as of this encounter Additional Source Comments The information contained in this document represents components of the legal health record. It is not the complete legal health record.[facility]
--- OUTSIDE RECORDS SUMMARY | 2025-03-09 14:19 | XMS_ITS | Clinical Summary ---
Author Organization [facility] Address [address] [place] [address] Phone Care Team Providers Care Rn Lpn Lvn Name Role Phone Murray Wheeler LOZENGE DOUGH MIXER Unavailable [phone] Aaliyah Garg PROFESSIONAL SERVICES CONSULTANT Unavailable [phone] Bijan Daley MD Unavailable [phone] Bijan Daley MD Primary Care Provider [phone] Bijan Daley MD Unavailable [phone] Allergies No known active allergies Medications omeprazole [...] Description 12/19/2024 Refill [facility] [place] [facility] [address] [place] [address] [place] [address] Bijan Daley MD Medication Refill (Chlorthalidone) from [...] Info) Description 05/22/2024 Procedure Pass [facility] [address] [place] [address] 06/01/2025 9:30 AM EST Appointment [facility] [address] [place] [address] Castillo Valles MD [address] [place] [address] 06/18/2025 10:00 AM EST Office Visit [facility] [address] Floor, [address] [place] [address] Castillo Valles MD [address] [place] [address] 12/01/2025 3:40 PM EDT Office Visit [facility] [place] [facility] 14 [facility] [address] [place] [address] Bijan Daley MD 14 [facility] [address] [place] [address] Health Maintenance Due Date Last Done Comments SMOKING Hx and SMOKELESS TOBACCO SCREENING 1966 COLOGUARD 1998 FIT TEST 1998 FOBT 1998 SIGMOIDOSCOPY 1998 VIRTUAL COLONOSCOPY 1998 PNEUMOCOCCAL VACCINES (50+ years) (1 of 1 - PCV) 2003 RSV VACCINE (1 - Risk 60-74 years 1-dose series) 2013 ABDOMINAL AORTIC ANEURYSM (AAA) SCREENING 2018 ZOSTER VACCINES (2 of 2) 10/13/2021 08/18/2021 INFLUENZA VACCINE (#1) 2025 , 06/14/2022, 06/29/2021, Additional history exists COVID-19 VACCINE ( - 2024- season) 2025 06/14/2022, 01/24/2022, 07/05/2021, Additional history exists BLOOD PRESSURE 05/26/2025 11/23/2024 CREATININE LEVEL 11/17/2025 11/17/2024, , 04/15/2023, Additional history exists POTASSIUM LEVEL 11/17/2025 11/17/2024, 01/05, 04/15/2023, Additional history exists DEPRESSION SCREENING 11/23/2025 11/23/2024, 07/04/20 23 LIPID PANEL 01/21/2029 01/22/2024, 10/07, 10/29/2022, Additional [...] this topic Medical Devices Implanted Type Area Marine Cargo Inspector Device Identifier Shelf Expiration Date Model / [...] EDT) SODIUM 137 133 - 146 mmol/L [facility] CHLORIDE 99 96 - 108 mmol/L [facility] POTASSIUM 3.6 3.3 - 5.1 mmol/L [facility] Comment:Specimen slightly he molyzed, result may be falsely elevated. CO2 23 21 - 35 mmol/L [facility] BUN 29(H) 6 - 19 mg/dL [facility] CREATININE 1.10 0.5 - 1.5 mg/dL [facility] GLUCOSE 99 70 - 99 mg/dL [facility] CALCIUM 9.7 8.4 - 10.3 mg/dL [facility] EGFR 72 >59 mL/min/1.7 3m2 [facility] Comment:Estimated glomerular filtration rate calculated using the CKD-EPI refit equation. ANION GAP 19 10 - 20 mmol/L [facility] Blood 11/17/2024 9:44 AM EDT 11/17/2024 9:57 AM EDT us Bijan Daley MD LAB BLOOD ORDERABLES Final R esult [address] [address] * ENDOSCOPY, COLON (11/13/2024 9:59 AM EDT) Narrative Transcriptions Ishaan Reardon MD - 11/13/2024 9:59 AM EDT [facility] Patient Name: Brennon Ren Attending MD:: ISHAAN REARDON MD, Procedure Date: 11/13/2024 9:59 AM Date of : 1955 Age: 69 Admit Type: Outpatient Gender: Male Room: [facility] Referring MD: BIJAN DALEY MD Exam Type: [...] monitored continuously. The Olympus adult variable colonoscope [id number] #[id number] was introduced through the anus and [...] 9:59 AM Procedure Code(s): --- Professional --- 53650, Colonoscopy, flexible; with removal of tumor(s), polyp(s), or other lesion(s) by snare technique --- Technical --- 55591, Colonoscopy, flexible; with removal of tumor(s), polyp(s), [...] perforation or abscess without bleeding CPT copyright 2022 [employer]. All rights reserved. The codes documented in this report are preliminary and upon angle furnaceman reviewmay be revised to meet current compliance requirements. Procedure Date: 11/13/2024 9:59:[address] [place] [address] Bijan Daley MD GI PROCEDURE ORDERABLES [place] l Result * Lipid panel (01/22/2024 9:48 AM EDT) HDL 50 mg/dL [facility] Comment: Interpretation <40 mg/dL: Low HDL cholesterol (major risk factor for CHD) Greater than or equal to 60 mg/dL: High HDL cholesterol ( negative risk factor for CHD) HDL - cholesterol is affected by a number of factors, e.g. smoking, excerise, hormones, sex and age. CHOLESTEROL 170 0 - 240 mg/dL [facility] TRIGLYCERIDES 141 30 - 160 mg/dL [facility] LDL 92 50 - 129 mg/dL [facility] Comment: LDL levels in terms of risk for coronary heart disease: <100 mg/dL: Optimal 100-129 mg/dL: Near or above optimal 130-159 mg/dL: Borderline high 160-189 mg/dL: High >190 mg/dL: Very High CARDIAC RISK RATIO 3.4 3.4 - 5.0 C [facility] Blood 01/22/2024 9:48 AM EDT 01/22/2024 9:58 AM EDT Bijan Daley MD LAB BLOOD ORDERABLES Final R esult [facility] [address] [place] [address] * Hepatitis C antibody, qualitative (10/29/2022 8:23 AM EDT) HCV NON-REACTIV E NON-REACTI VE [facility] Blood 10/29/2022 8:23 AM EDT 10/29/2022 8:31 AM EDT Aaliyah Garg [facility] LAB BLOOD ORDERABLES F inal Result [facility] [address] [place] [address] from Last 3 Months or Most Recently Relevant to Health Maintenance [place] [address] [place] [address] [place] [address] [place] [address] [place] [address] [place] [address] [facility] Member Subscriber Plan / Payer (Ef fective 2018-Present) Name:Brennon Ren Relation to Subscriber:Spouse Name:ROBERT REN Date of :1957 (Home) Address: [address] [place] [address] Payer ID:[id number] (NAIC) Type:HMO Address: [address] [place], [place] [facility] Member Subscriber Plan / Payer (Ef fective 2018-Present) Name:Brennon Ren Relation to Subscriber:Spouse Name:ROBERT REN Date of :1957 (Home) Address: [address] [place], [place] Payer ID:[id number] (NAIC) Type:HMO Address: [address] [place], [place] [facility] Advance Directives For more information, please contact: [phone] (9AM - 5PM [facility], Saturday-Saturday) * Full Code (Latest Code Status on File) Date Activated Date Inactivated Comments 06/28/2021 6:05 PM Question Answer Comments Code Status Confirmed With: Patient Care Teams Rn Lpn Lvn Relationship Specialty Start Date End Date Bijan Daley MD [address] [place] [address] [address] [place] [address] [email or web address] PCP - General 04/23/17 Yoli Murray NP [address] [place] [address] [address] [place] [address] Historical LMR Provider 04/22/17 Aaliyah Garg CNP [address] [place] [address] Historical LMR Provider 04/22/17 Bijan Daley MD [address] [place] [address] [email or web address] Historical LMR Provider 04/22/17 Bijan Daley MD [address] [place] [address] [email or web address] Insurance Assigned Provider 10/12/23 Additional Source Comments The information contained in this document represents components of the legal health record. It is not the complete legal health record.[facility]
[2025-03-09 14:38] LABS: Hematocrit 45.9 % (42.0-52.0); Hemoglobin 15.9 g/dl (14.0-18.0); Mean Corpuscular HGB Conc 34.6 g/dl (31.0-36.0); Mean Corpuscular Hemoglobin 29.9 pg (27.0-33.0); Mean Corpuscular Volume 86.4 fL (80.0-98.0); NRBC Abs Auto 0.000 X10*3/uL (0.0-0.012); NRBC Pct Auto 0.0 /100WBC (0.0-0.2); Platelet Count 234 X10*3/uL (160-400); Red Blood Count 5.31 X10*6/uL (4.60-5.80); White Blood Count 8.3 X10*3/uL (4.8-10.8)
[2025-03-09 15:11] LABS: Anion Gap 13 (12-20); Blood Urea Nitrogen 18 mg/dL (9-16); Calcium 9.7 mg/dL (8.4-10.2); Carbon Dioxide 26 mmol/L (22-29); Chloride 106 mmol/L (96-108); Creatinine Clr Calc Pharmacy 69.9; Estimated Glomerular Filt Rate > 60; Potassium 3.6 mmol/L (3.3-5.1); Sodium 141 mmol/L (135-145)
[2025-03-31] VITALS (7 sets, daily range): BP systolic 86–133; BP diastolic 50–89; PULSE 73–99; RESP 12–17; TEMP 36.1–37; O2SAT 93–97; BMI 31.7
--- NOTE | ~2025-03-31 | FL_ITS ---
EXAMINATION: FL GUIDANCE ONLY HISTORY: l3-4 decompression COMPARISON: Correlation is made with an MRI of the lumbar spine dated 12/24/2024. TECHNIQUE: Fluoroscopy time: 7 seconds. Cumulative Dose: 2.60 mGy. DAP: 8 7.40 uGym2 Images: 5. FINDINGS: Fluoroscopic spot films of the lumbar spine in the lateral projection initially demonstrate a needle at the L4 level. Subsequent images demonstrate a probe at the L3-4 level. FL/FL guidance in OR IMPRESSION: Fluoroscopy during procedure. Please see procedure report for additional information. Electronically signed by: Hitesh May MD 04/01/2025 07:34 AM EDT
[2025-03-31] MEDS: Lactated Ringers 1,000 ML 100 ML IVCONT (06:35)
--- NOTE | 2025-03-31 07:00 | MHC.SHP ---
Pre-Procedural Eval Section A - 24 Hr Update-Section A only Date of Service: 03/31/25 Section B - Complete if H&P > 30 days Chief Complaint: Spinal stenosis, lumbar region with neurogenic Allergies: Allergies Allergy/AdvReac Type Severity Reaction Status Date / Time No Known Allergies Allergy Verified 03/31/25 06:21 Review of Systems Sugical H&P ROS: Negative: Constitution, Cardiovascular, Respiratory, Neurological, Psychiatric, Hem-Onc, Allergic/Immunologic, Gastrointestinal, Genitourinary, Musculoskeletal, Integumentary, Endocrine and Eyes/Ears/Nose/Throat Exam Surgical H&P Exam: Not Evaluated: HEENT, Not Evaluated: Heart, Not Evaluated: Lungs, Not Evaluated: Extremities, Not Evaluated: Abdomen, Not Evaluated: Skin and Not Evaluated: Neurological Exam Comment: The patient is awake, alert, no acute distress. Proposed surgical incision site is clean, dry, with no signs of recent trauma. Plan Diagnosis/Plan: Unchanged I have reviewed the history and physical and performed a pertinent physical examination on my patient. No changes have occurred unless specified. 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
--- NOTE | 2025-03-31 09:14 | W.PM.OPN ---
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 I have explained the nature, purpose and benefits of the operation. I have discussed the risks and benefit of the operation including possible complications or adverse events with patient/family. Alternative(s) were discussed with the patient with their relative benefits and risks as well as the consequences of not accepting the operation were included in obtaining consent. Surgeon: FLORIN MERAZ MD, PHD Procedure Assisted By: Arturo [email or web address] Description of Procedure This 69-year-old male underwent a right L2-L5 lumbar decompression. He continued to have some residual leg pain but over time he developed radiating pain down both legs. A repeat MRI showed a large extradural mass compressing the thecal sac and causing severe stenosis at L3-L4. The patient was offered a removal of the mass to decompress the nervous structure. The procedure complications were explained. The patient was consented. The patient was brought to the operating room and endotracheally intubated. The patient was turned in prone position on the Atif frame. Prep and drape was done followed by timeout. Physician human resources benefits assistant provided access. A mid lumbar incision was made followed by release of the paravertebral muscle on the left side to expose the L3-4 lamina and facet joint. An intraoperative x-ray was obtained to confirm the correct level. The microscope was brought in. I took over the procedure. The high-speed drill was used to do a L3-4. I opened the flavum ligament above the disc space to enter normal anatomy. The thecal sac was identified. From here I moved my way caudally until the beginning of the cyst started. A large mass was encountered that was adherent to the thecal sac I the mass from the thecal sacs and create a plane between the exiting nerve root and the mass. The mass was originating from the left L3-4 facet joint. Once it was released from the thecal sac I took a pituitary and resected it partially. Then immediately more cyst was coming out of the synovial joint causing severe compression. This large mass was resected too. This led to a good decompression of the thecal sac and exiting nerve root. Pulsations were seen of the thecal sac assign of adequate decompression. In the midline there was some residual tissue which was not connected to the joint and thought mostly consisted of epidural fat and previous scar tissue. No significant compression was coming from this residual tissue. Extensive hemostasis was performed with Surgiflo. The microscope was removed. Hemostasis was done again. Incision was closed in 2 layers. Steri-Strips were used to approximate incision. An OpSite with Tegaderm was used to cover the incision. All sponge needle counts were correct. Patient was extubated and transported in stable is to recovery room. A return of the cystic mass were automatically result in a fusion for this patient. Anesthesia: General Estimated Blood Loss (ml): Minimal Duration of Surgery: 90 Minutes Postoperative Plan: Discharge to home
--- NOTE | 2025-03-31 09:22 | PM.DS ---
DS: Providers Provider Date of Service: 03/31/25 Date of discharge: 03/31/25 Primary care physician: Darwin Montanez MD DS: Summary Time Attestation Discharge Coordination Time (in mins): 12 Quality: Safe Use of Opioids Does Pt have an Active Cancer Diagnosis on the Problem List?: No Quality: Stroke Does the patient have a stroke diagnosis?: No Physical Exam Vital Signs: Vital Signs: Last Vital Signs Temp 98.6 F 03/31/25 06:26 Pulse 73 03/31/25 06:26 Resp 17 03/31/25 06:26 BP 133/89 03/31/25 06:26 Pulse Ox 96 03/31/25 06:26 O2 Del Method Room Air 03/31/25 06:26 BMI result Body Mass Index 31.7 Discharge Plan Discharge Patient Disposition: Home, Self-Care Referrals: Darwin Montanez MD [Primary Care Provider, Internal Medicine] - 1 Week Discharge Medications: New oxycodone 5 mg tablet 5 mg PO Q6H PRN (Reason: pain) Qty: 20 0RF Rx Instructions: Partial Fill upon patient request. Continued atorvastatin 80 mg Tablet 80 mg PO BEDTIME chlorthalidone 25 mg Tablet 25 mg PO BEDTIME omeprazole 20 mg Capsule,Delayed Release(Dr/Ec) 20 mg PO BEDTIME lisinopril 40 mg Tablet 40 mg PO QAM Held aspirin 81 mg Tablet,Delayed Release (Dr/Ec) 81 mg PO QAM Hold Instructions: Resume on 04/05/25. Discharge Orders: Discharge Order (Routine); Ordered 03/31/25 Ordered By: Arturo Stanford Diet: Advance to usual diet Activity on Discharge: As tolerated Activity Restrictions/Additional Instructions: After your spinal surgery we ask you to observe the following restrictions/guidelines: Activity: It is normal to feel some discomfort as you increase your activity, but that will improve with time. We ask you avoid heavy lifting or acitivities that cause pain. As a general rule, 8lbs is a safe limit for lifting right after surgery. Walk as much as you feel comfortable but not to exhaustion. You will feel extra tired the first few days after surgery. Stay well hydrated. It is OK to walk up and down stairs You may return to driving when you are off narcotics (such as vicodin, oxycodone, dilaudid, etc), and you are back to normal functional capacity. If you have any concerns please check with office before driving. Return to work is specific to each patient and each surgery, so please speak with your doctor/PA at first follow up. Please bring paperwork such as FMLA at that time if you need it filled out. Medications: Please hold your aspirin for 5 days after surgery. We recommend you take 1,000mg Tylenol every 8 hours for the first few weeks after surgery, if you do not have any liver issues and can tolerate this medication. Do not exceed 4,000mg daily. We will give you a short supply of narcotics after surgery (usually one weeks worth). If you need more please call the office but do not use more than prescribed. You will need to give our office 48 hours notice if you need narcotics refilled and we do not fill narcotics on weekends or evenings. If you are on a narcotic, it is a good idea to take a stool softener such as colace or senna to avoid constipation If you take blood thinner such as aspirin, Plavix, Coumadin, Effient, Eliquis etc for conditions such as Afib, DVT, Pulmonary embolus, coronary disease, stents etc please speak with your surgeon about specific details as to when you can resume these medications. You can resume NSAIDs on post op day 1 (eg: Motrin, Naproxen, etc). Follow up: Please call the office, , after surgery to arrange a 3 week follow up for wound check. Wound Care: You may remove your dressing on the first day after surgery. ?You may ?leave open to air. Please do not remove the steri strips underneath. they will fall off on their own in one week. IT IS NORMAL FOR THE WOUND TO OOZE OR BE BLOODY FOR A FEW DAYS AFTER SURGERY. ?IF THIS HAPPENS JUST PLACE NEW DRESSING OVER IT TO AVOID STAINING CLOTHES. You may shower on post op day # 1 We ask that you do not let the water soak the wound. If it does get wet, just towel dry lightly. Please do not scrub your incision or place any type of chemical/ointment on the wound. No tub baths, pools or jacuzzis for one month. If you have any leaking or redness from your wound, or fevers, please call the office. Print Language: Setswana
== END 2025-03-31 11:10 | disposition home or self-care (01) ==
PROVIDERS: Nurse Practitioner; PCP Internal Medicine; Visit Provider Neurological Surgery
PROC: (CPT 63267; principal; 2025-03-31 07:30)
DX: M48.062 Spinal stenosis, lumbar region with neurogenic claudication (principal); M71.38 Other bursal cyst, other site; G95.89 Other specified diseases of spinal cord; I25.10 Atherosclerotic heart disease of native coronary artery without angina pectoris; I10 Essential (primary) hypertension; E78.00 Pure hypercholesterolemia, unspecified; I77.810 Thoracic aortic ectasia; Z95.2 Presence of prosthetic heart valve; M10.9 Gout, unspecified; K21.9 Gastro-esophageal reflux disease without esophagitis; Z86.73 Personal history of transient ischemic attack (TIA), and cerebral infarction without residual deficits; Z79.82 Long term (current) use of aspirin; Z79.899 Other long term (current) drug therapy; Z98.890 Other specified postprocedural states; Z87.891 Personal history of nicotine dependence
CPT/HCPCS: 63267; 36415; 80048; 85027; 93005; J0131; J0690; J1100; J1885; J2003; J2250; J2405; J2704; J3010

== ENCOUNTER → 2025-03-31 05:39 | Outpatient (BNV) | payer BC, SELFPAY | PROVIDERS: PCP Internal Medicine; Visit Provider Neurological Surgery | DX: M71.38 Other bursal cyst, other site (principal) | CPT/HCPCS: 63267; 69990; 99499 ==

== ENCOUNTER 2025-04-26 10:27 | Outpatient (AMB) | payer BC, SELFPAY ==
--- NOTE | 2025-04-26 10:35 | A.SPINEOV_ITS ---
Intake Visit Reasons: 1st post op Intake Note: Mr. Rock is here today for his 1st post op appointment. Barge Worker Required: No Allergies No Known Allergies Allergy (Verified 03/31/25 06:21) Assessment & Plan Assessment & Plan (1) Status post lumbar spine surgery for decompression of spinal cord: Code(s): Z98.890 - Other specified postprocedural states Category: Medical Plan Brennon is a pleasant 69-year-old male who underwent Left L3-4 Laminotomy for removal of extradural benign mass on 03/31/[address] Bejarano. He comes in today for his 1st postoperative visit. He reports that overall he has been doing well from his surgery. He did have a episode about a week out from surgery where he had fairly severe exacerbation of pain, however this subsided after resting for the day. He states that he has had some improvement in function and with his pain. His left leg pain is gone, in his able to put his socks on, walk without a cane, and washes feet in the shower. Previously he needed assistive devices to perform these functions. Unfortunately he still d oes have some pain in his right lateral thigh and right groin. We discussed the postoperative healing course, and I answered all questions that he had. His right-sided pain may either be related to an underlying hip/leg pathology, or may improve as the inflammation goes down from surgery. No new neurological deficits. The patient ambulates well and rises from a seated position without difficulty. He uses no assistive devices to ambulate. His posterior incision site is closed and well healing with no signs of drainage. I would like to follow up with Brennon again in 6 weeks for his 2nd postop visit. Arturo Bejarano MD,PhD [facility] Coding Level of Care Code Global (15079) Diagnoses Status post lumbar spine surgery for decompression of spinal cord Z98.890
== END 2025-04-26 10:58 | disposition home or self-care (01) ==
LOC: HO.HNS 10:27
PROVIDERS: PCP Internal Medicine; Visit Provider Physician Assistant
DX: Z98.890 Other specified postprocedural states (principal)
CPT/HCPCS: 99024

== ENCOUNTER 2025-06-09 14:14 | Outpatient (AMB) | payer BC, SELFPAY ==
--- NOTE | 2025-06-09 08:35 | A.SPINEOV_ITS ---
Intake Visit Reasons: 2nd post op Intake Note: Mr. Rock is here today for his 2nd post op. Outbound Call Center Representative Required: No Allergies No Known Allergies Allergy (Verified 06/09/25 14:38) Assessment & Plan Assessment & Plan (1) Status post lumbar spine surgery for decompression of spinal cord: Code(s): Z98.890 - Other specified postprocedural states Category: Medical Plan Procedure: Left L3-4 laminotomy Brennon is a pleasant 69 year old male who comes in today for his 2nd postoperative visit after having the above listed procedure completed by Dr. Bejarano. After his last postoperative visit he was still reporting some pain in his right lateral thigh and right groin. Thankfully, he reports that nearly all of his pain has resolved since his last visit. He still gets some discomfort near the right groin, but states even this has significantly improved. He has essenti ally been back to regular activity, but has remained mindful of heavier more intensive activities. He is able to walk the 2 miles around the [place] that [place] his house, and overall is very happy with the procedure that he had. We discussed the postoperative healing course, and I answered any questions that he had. No new neurological deficits. The patient ambulates well and rises from a seated position without difficulty. He uses no assistive devices to ambulate. There is no need for continued routine follow up with Brennon, he may follow up on an as needed basis. Arturo Bejarano MD,PhD [facility] Coding Level of Care Code Global (25007) Diagnoses Status post lumbar spine surgery for decompression of spinal cord Z98.890
--- OUTSIDE RECORDS SUMMARY | 2025-06-09 17:04 | XMS_ITS | Encounter Summary ---
Author Organization [facility] Address [address] [facility] [address] [place] [address] Phone Care Team Providers Care Hand Bobbin Cleaner Name Role Phone Murray Kinta FRAME PULLEY MORTISING MACHINE OPERATOR Unavailable [phone] Aaliyah Garg STUDY DIRECTOR Unavailable [phone] Darwin Montanez MD Unavailable [phone] Jaden Boles MD Unavailable Unavailable Darwin Montanez MD Primary Care Provider [phone] Darwin Montanez MD Unavailable [phone] Nitza Lopez RN Unavailable [email or web address] Encounter Details Date Type Department Care Team (Late st Contact Info) Description 01/12/2021 Procedure Pass [facility] [address] [place], [place] [id number] Social History Tobacco Use Types Packs/Day Years [...] Care Team (Late st Contact Info) Description 06/18/2025 10:00 AM EST Office Visit [facility] [address] [place] [address] 3rd Floor, [address] [place], [place] [address] Castillo Valles MD [address] [place] [address] 09/21/2025 1:00 PM EDT Office Visit [facility] Orthopedics & Sports Medicine [address] [place] [address] Radha Daly MD [address] [place] [address] Orthopedics & Sports Medicine, [place] [address] 12/01/2025 3:40 PM EDT Office Visit [facility] Internal Medicine [address] [place] [address] Darwin Montanez MD [address] [place] [address] [email or web address] documented as of this encounter Visit Diagnoses Not on filedocumented in this encounter Additional Health Concerns Assessment Noted Time PHQ-2 Depression Total Score: 1 07/06/20 19 2:52 PM EST documented as of this encounter Care Teams Hand Bobbin Cleaner Relationship Specialty Start Date End Date Darwin Montanez MD [address] [place] [address] PCP - General 04/23/17 Yoli Murray NP [address] [place] [address] [email or web address] Historical LMR Provider 04/22/17 Aaliyah Garg CNP [address] [place] [address] [email or web address] Historical LMR Provider 04/22/17 Darwin Montanez MD [address] [place] [address] [place] [address] [email or web address] Historical LMR Provider 04/22/17 Jaden Boles MD Historical LMR Provider 04/22/17 07/15/21 Darwin Montanez MD [address] [place] [address] [email or web address] Insurance Assigned Provider 10/12/23 Nitza Lopez RN [address] [place] [address] [email or web address] 02/18/2403/25 documented as of this encounter Additional Source Comments The information contained in this document represents components of the legal health record. It is not the complete legal health record.[facility]
--- OUTSIDE RECORDS SUMMARY | 2025-06-09 17:04 | XMS_ITS | Encounter Summary ---
Author Organization [facility] Address [address] [place] [address] [place] [address] Phone Care Team Providers Care Technology Risk Intern Name Role Phone Yoli Murray ACOUSTICAL ENGINEER Unavailable [phone] Aaliyah Garg TEACHING ARTIST Unavailable [phone] Darwin Montanez MD Unavailable [phone] Jaden Boles MD Unavailable Unavailable Darwin Montanez MD Primary Care Provider [phone] Darwin Montanez MD Unavailable [phone] Nitza Lopez RN Unavailable [email or web address] Encounter Details Date Type Department Care Team (Late st Contact Info) Description 06/28/2021 Procedure Pass [facility], Ct Scan - [address] [address] Social History Tobacco Use Types Packs/Day Years [...] 6:54 PM EST Ariadne Merino, JESUS * [place] Suicide Severity Rating Scale (Screener/Recent Self-Report) Question Answer Date of Assessment Author 1. Wish to be (Past 1 Month) No 06/28/2021 6:54 PM EST Ariadne Merino RN 2. Non-Specific Active Suici zack Thoughts (Past 1 Month) No 06/28/2021 6:54 PM Ariadne Perla, JESUS 6. Suicidal Behavior (Lifetime) No 6:54 PM EST Ariadne Merino, JESUS documented as of this encounter Plan of Treatment Upcoming Encounters Date Type Department Care Team (Late st Contact Info) Description 06/18/2025 10:00 AM EST Office Visit [facility] [address] [place] [address] 3rd Floor, [address] [place] [address] Castillo Valles MD [address] [place] [address] 09/21/2025 1:00 PM EDT Office Visit [facility] Orthopedics & Sports Medicine [address] [place] [address] Radha Daly MD [address] [place] [address] Orthopedics & Sports Medicine, [place] [address] [email or web address] 12/01/2025 3:40 PM EDT Office Visit [facility] Internal Medicine [address] [place] [address] Darwin Montanez MD [address] [place] [address] [email or web address] documented as of this encounter Visit Diagnoses Not on filedocumented in this encounter Additional Health Concerns Assessment Noted Time PHQ-2 Depression Total Score: 1 07/06/20 19 2:52 PM EST documented as of this encounter Care Teams Technology Risk Intern Relationship Specialty Start Date End Date Darwin Montanez MD [address] [place] [address] [email or web address] PCP - General 04/23/17 Yoli Murray, JAI [address] [place] [address] [email or web address] Historical LMR Provider 04/22/17 Aaliyah Garg, MATILDE [address] [place] [address] [email or web address] Historical LMR Provider 04/22/17 Darwin Montanez MD [address] [place] [address] [email or web address] Historical LMR Provider 04/22/17 Jaden Boles MD Historical LMR Provider 04/22/17 07/15/21 Darwin Montanez MD [address] [place] [address] [email or web address] Insurance Assigned Provider 10/12/23 Nitza Lopez, JESUS [address] [place] [address] [email or web address] PHCM Digital Pre Press Operator 02/18/2403/25 documented as of this encounter Additional Source Comments The information contained in this document represents components of the legal health record. It is not the complete legal health record.[facility]
--- OUTSIDE RECORDS SUMMARY | 2025-06-09 17:04 | XMS_ITS | Encounter Summary ---
Author Organization [facility] Address [address] [place] [address] [place] [address] Phone Care Team Providers Care Renovator Machine Operator Name Role Phone Yoli Murray GENERAL FREIGHT AGENT Unavailable [phone] Aaliyah Garg CABLE DISPATCHER Unavailable [phone] Darwin Montanez MD Unavailable [phone] Darwin Montanez MD Primary Care Provider [phone] Darwin Montanez MD Unavailable [phone] Nitza Lopez RN Unavailable [email or web address] Reason for Referral * MRI/CAT Scan - Closed Specialty Diagnoses / Procedures Referred By Chaya montez Referred To Contact Radiology Diagnoses Lumbar radiculopathy Procedures MRI Lumbar Spine Santos Lee DO Phone: tel: fax: [email or web address] Phone: tel: Referral ID Status Reason Start Date Expiration Date Visits Re quested Visits Authorized [id number] Closed 03/05/2022 04/04/2022 1 1 Encounter Details Date Type Department Care Team (Latest Contact Info) Description 02/13/2022 Transcribe Orders [facility] Department [address] [place] [address] Santos Lee [address] [place] [address] [email or web address] Lumbar radiculopathy (Primary Dx) Social History Tobacco [...] Description 06/18/2025 10:00 AM EST Office Visit [facility] [address] [place] [address] 3rd Floor, [address] [place] [address] Castillo Valles MD [address] [place] [address] 09/21/2025 1:00 PM EDT Office Visit [facility] Orthopedics & Sports Medicine [address] [place] [address] Radha Daly MD [address] [place] [address] Orthopedics & Sports Medicine, [place] [address] 12/01/2025 3:40 PM EDT Office Visit [facility] Internal Medicine [address] [address] Darwin Montanez MD [address] [address] documented as of this encounter Results * [...] Severe spinal canal stenosis. Mild left and leuy-tu-fzvohqex right foraminal stenosis. Findings are similar to [...] Severe spinal canal stenosis. Mild left and puck-fu-jgnswfklgpelv foraminal stenosis. Findings are similar to prior. [...] documented as of this encounter Care Teams Renovator Machine Operator Relationship Specialty Start Date End Date Darwin Montanez MD [address] [place] [address] [email or web address] PCP - General 04/23/17 Yoli Murray, JAI [address] [place] [address] Historical LMR Provider 04/22/17 Aaliyah Garg, CABLE DISPATCHER [address] [place] [address] Historical LMR Provider 04/22/17 Darwin Montanez MD [address] [place] [address] Historical LMR Provider 04/22/17 Darwin Montanez MD [address] [place] [address] Insurance Assigned Provider 10/12/23 Nitza Lopez RN [address] [place] [address] [email or web address] Cnc Machine Programmer 02/18/2403/25 documented as of this encounter Additional Source Comments The information contained in this document represents components of the legal health record. It is not the complete legal health record.[facility]
--- OUTSIDE RECORDS SUMMARY | 2025-06-09 17:04 | XMS_ITS | Encounter Summary ---
Author Organization [facility] Address [address] [place] [address] [place] [address] Phone Care Team Providers Care Bar Finish Operator Name Role Phone MurrayYoli METAL CUT OFF SAW OPERATOR Unavailable [phone] Aaliyah Garg COMMERCIAL RELIEF DRIVER Unavailable [phone] Darwin Montanez MD Unavailable [phone] Jaden Boles MD Unavailable Unavailable Darwin Montanez MD Primary Care Provider + [phone] Darwin Montanez MD Unavailable [phone] Nitza Lopez RN Unavailable [email or web address] Encounter Details Date Type Department Care Team (Late Contact Info) Description 06/25/2019 Transcribe Orders [address] [address] Darwin Montanez MD [address] [place] [address] [place] [phone] [email or web address] Social History Tobacco Use Types Packs/Day Years [...] Description 06/18/2025 10:00 AM EST Office Visit [facility] [address]rd Floor, [address] [place] [address] Castillo Valles MD [address] [place] [address] 09/21/2025 1:00 PM EDT Office Visit [facility] Orthopedics & Sports Medicine [address] [place] [address] Radha Daly MD [address] [place] [address] Orthopedics & Sports [facility] [place] [address] 12/01/2025 3:40 PM EDT Office Visit [facility] Internal Medicine [address] [address] Darwin Montanez MD [address] [place] [address] documented as of this encounter Visit Diagnoses Not on filedocumented in this encounter Additional Health Concerns Infection Onset Date Last Indicated Resolved Time CoV-Risk 03/08/2020 03/09/2020 03/22/2020 1:24 AM EDT documented as of this encounter Care Teams Bar Finish Operator Relationship Specialty Start Date End Date Darwin Montanez MD [address] [place] [address] PCP - General 04/23/17 Yoli Murray NP [address] [place] [address] Historical LMR Provider 04/22/17 Aaliyah Garg, MATILDE [address] [place] [address] [email or web address] Historical LMR Provider 04/22/17 Darwin Montanez MD [address] [place] [address] [email or web address] Historical LMR Provider 04/22/17 Jaden Boles MD Historical LMR Provider 04/22/17 07/15/21 Darwin Montanez MD [address] [place] [address] [email or web address] Insurance Assigned Provider 10/12/23 Nitza Lopez RN [address] [place] [address] [email or web address] 02/18/2403/25 documented as of this encounter Additional Source Comments The information contained in this document represents components of the legal health record. It is not the complete legal health record.[facility]
--- OUTSIDE RECORDS SUMMARY | 2025-06-09 17:04 | XMS_ITS | Encounter Summary ---
Author Organization [facility] Address [address] [facility] [address] [place] [address] Phone Care Team Providers Care Plant Guide Name Role Phone Murray [place] PAN SHOVER Unavailable [phone] Aaliyah Garg GEM STONE CUTTER Unavailable [phone] Darwin Montanez MD Unavailable [phone] Jaden Boles MD Unavailable Unavailable Darwin Montanez MD Primary Care Provider [phone] Darwin Montanez MD Unavailable [phone] Nitza Lopez RN Unavailable [email or web address] Encounter Details Date Type Department Care Team (Late st Contact Info) Description 06/29/2021 Procedure Pass [facility] [address] [place], [place] [phone] Social History Tobacco Use Types Packs/Day Years [...] Description 06/18/2025 10:00 AM EST Office Visit [facility] [address] [place] [address] 3rd Floor, [address] [place], [place] [phone] Castillo Valles MD [address] [place] [address] [email or web address] 09/21/2025 1:00 PM EDT Office Visit [facility] Orthopedics & Sports Medicine [address] [place] [address] Radha Daly MD [address] [place] [address] Orthopedics & Sports Medicine, [place] [address] 12/01/2025 3:40 PM EDT Office Visit [facility] Internal Medicine [address] [place] [address] Darwin Montanez MD [address] [place] [address] [email or web address] documented as of this encounter Visit Diagnoses Not on filedocumented in this encounter Additional Health Concerns Assessment Noted Time PHQ-2 Depression Total Score: 1 07/06/20 19 2:52 PM EST documented as of this encounter Care Teams Plant Guide Relationship Specialty Start Date End Date Darwin Montanez MD [address] [place] [address] [email or web address] PCP - General 04/23/17 Yoli Murray NP [address] [place] [address] [email or web address] Historical LMR Provider 04/22/17 Aaliyah Garg CNP [address] [place] [address] [email or web address] Historical LMR Provider 04/22/17 Darwin Montanez MD [address] [place] [address] [place] [address] [email or web address] Historical LMR Provider 04/22/17 Jaden Boles MD Historical LMR Provider 04/22/17 07/15/21 Darwin Montanez MD [address] [place] [address] [email or web address] Insurance Assigned Provider 10/12/23 Nitza Lopez RN [address] [place] [address] [email or web address] Communications Engineer 02/18/2403/25 documented as of this encounter Additional Source Comments The information contained in this document represents components of the legal health record. It is not the complete legal health record.[facility]
--- OUTSIDE RECORDS SUMMARY | 2025-06-09 17:04 | XMS_ITS | Encounter Summary ---
Author Organization [facility] Address [address] [facility] [address] [place] [address] Phone Care Team Providers Care Drencher Name Role Phone MurrayLeninAmber HAIR STYLIST Unavailable [phone] Aaliyah Garg FORMING FIXER Unavailable [phone] Darwin Montanez MD Unavailable [phone] Darwin Montanez MD Primary Care Provider [phone] Darwin Montanez MD Unavailable [phone] Encounter Details Date Type Department Care Team (Late st Contact Info) Description 05/27/2024 Procedure Pass [facility], [address] [address] Social History Tobacco Use Types Packs/Day Years [...] Description 06/18/2025 10:00 AM EST Office Visit [facility] [address] [facility] 3rd Floor, [address] [place] [address] Castillo Valles MD [address] [place] [address] 09/21/2025 1:00 PM EDT Office Visit [facility] Orthopedics & Sports Medicine [address] [place] [address] Radha Daly MD [address] [place] [address] Orthopedics & Sports [facility] [place] [address] 12/01/2025 3:40 PM EDT Office Visit [facility] Internal Medicine [address] [address] Darwin Montanez MD [address] [place] [address] documented as of this encounter Visit Diagnoses Not on filedocumented in this encounter Additional Health Concerns Assessment Noted Time PHQ-9 Depression Total Score: 2 07/04/20 23 12:49 PM EST PHQ-2 Depression Total Score: 0 11/14/19 24 10:20 AM EDT documented as of this encounter Care Teams Drencher Relationship Specialty Start Date End Date Darwin Montanez MD [address] [place] [address] PCP - General 04/23/17 Yoli Murray NP [address] [place] [address] Historical LMR Provider 04/22/17 Aaliyah Garg CNP [address] [place] [address] Historical LMR Provider 04/22/17 Darwin Montanez MD [address] [place] [address] Historical LMR Provider 04/22/17 Darwin Montanez MD [address] [place] [address] Insurance Assigned Provider 10/12/23 documented as of this encounter Additional Source Comments The information contained in this document represents components of the legal health record. It is not the complete legal health record.[facility]
--- OUTSIDE RECORDS SUMMARY | 2025-06-09 17:04 | XMS_ITS | Encounter Summary ---
Author Organization [facility] Address [address] [place] [address] [place] [address] Phone Care Team Providers Care Election Clerk Name Role Phone Murray Maitland COMPUTER NETWORK SUPPORT SPECIALIST Unavailable [phone] Aaliyah Garg MOTOR POLARIZER Unavailable + [phone] Darwin Montanez MD Unavailable [phone] Jaden Boles MD Unavailable Unavailable Darwin Montanez MD Primary Care Provider + [phone] Darwin Montanez MD Unavailable [phone] Nitza Lopez RN Unavailable [email or web address] Encounter Details Date Type Department Care Team (Late st Contact Info) Description 10/24/2017 Transcribe Orders [address] [address] Darwin Montanez MD [address] [place] [address] [place] [address] [email or web address] Social History Tobacco Use Types Packs/Day Years [...] Description 06/18/2025 10:00 AM EST Office Visit [facility] [address] [place] [address] 3rd Floor, [address] [place] [address] Castillo Valles MD 50 [place] [address] 09/21/2025 1:00 PM EDT Office Visit [facility]opedics & Sports Medicine [address] [place] [address] Radha Daly MD [address] [place] [address] Orthopedics & [place], [place] [address] 12/01/2025 3:40 PM EDT Office Visit [facility] Internal Medicine [address] [place] [address] Darwin Montanez MD [address] [place] [address] documented as of this encounter Visit Diagnoses Not on filedocumented in this encounter Additional Health Concerns Infection Onset Date Last Indicated Resolved Time CoV-Risk 03/08/2020 03/09/2020 03/22/2020 1:24 AM EDT documented as of this encounter Care Teams Election Clerk Relationship Specialty Start Date End Date Darwin Montanez MD [address] [place] [address] PCP - General 04/23/17 Yoli Murray NP [address] [place] [address] Historical LMR Provider 04/22/17 Aaliyah Garg, MOTOR POLARIZER [address] [place] [address] [email or web address] Historical LMR Provider 04/22/17 Darwin Montanez MD [address] [place] [address] [place] [address] [email or web address] Historical LMR Provider 04/22/17 Jaden Boles MD Historical LMR Provider 04/22/17 07/15/21 Darwin Montanez MD [address] [place] [address] [place] [address] [email or web address] Insurance Assigned Provider 10/12/23 Nitza Lopez, JESUS [address] [place] [address] [place] [address] [email or web address] 02/18/2403/25 documented as of this encounter Additional Source Comments The information contained in this document represents components of the legal health record. It is not the complete legal health record.[facility]
--- OUTSIDE RECORDS SUMMARY | 2025-06-09 17:04 | XMS_ITS | Encounter Summary ---
Author Organization [facility] Address [address] [facility] [address] [place] [address] Phone Care Team Providers Care Nurse General Duty Name Role Phone Yoli Murray TRANSCRIPTER Unavailable [phone] Aaliyah Garg INVESTMENT UNDERWRITER Unavailable [phone] Darwin Montanez MD Unavailable [phone] Darwin Montanez MD Primary Care Provider [phone] Darwin Montanez MD Unavailable [phone] Encounter Details Date Type Department Care Team (Late st Contact Info) Description 05/22/2024 Procedure Pass [facility] [place] [place] [address] Social History Tobacco Use Types Packs/Day Years [...] Description 06/18/2025 10:00 AM EST Office Visit [facility] [address] [facility] 3rd Floor, [address] [place] [address] Castillo Valles MD 50 [place] [address] 09/21/2025 1:00 PM EDT Office Visit [facility] Orthopedics & Sports Medicine [address] [place] [address] Radha Daly MD [address] [place] [address] Orthopedics & Sports [place], [place] [address] 12/01/2025 3:40 PM EDT Office Visit [facility] Internal Medicine [address] [place] [address] Darwin Montanez MD [address] [address] documented as of this encounter Visit Diagnoses Not on filedocumented in this encounter Additional Health Concerns Assessment Noted Time PHQ-9 Depression Total Score: 2 07/04/20 23 12:49 PM EST PHQ-2 Depression Total Score: 0 11/24/19 25 3:36 PM EDT documented as of this encounter Care Teams Nurse General Duty Relationship Specialty Start Date End Date Darwin Montanez MD [address] [place] [address] [place] [address] [email or web address] PCP - General 04/23/17 Yoli Murray, TRANSCRIPTER [address] [place] [address] Historical LMR Provider 04/22/17 Aaliyah Garg, INVESTMENT UNDERWRITER [address] [place] [address] Historical LMR Provider 04/22/17 Darwin Montanez MD [address] [place] [address] Historical LMR Provider 04/22/17 Darwin Montanez MD [address] [place] [address] [email or web address] Insurance Assigned Provider 10/12/23 documented as of this encounter Additional Source Comments The information contained in this document represents components of the legal health record. It is not the complete legal health record.[facility]
--- OUTSIDE RECORDS SUMMARY | 2025-06-09 17:04 | XMS_ITS | Encounter Summary ---
Author Organization [facility] Address [address] [place] [address] [place] [address] Phone Care Team Providers Care Observation Assistant Name Role Phone Yoli Murray PRESS FEEDER Unavailable [phone] Aaliyah Garg PROVIDER RELATIONS REP Unavailable [phone] Darwin Montanez MD Unavailable [phone] Jaden Boles MD Unavailable Unavailable Darwin Montanez MD Primary Care Provider [phone] Darwin Montanez MD Unavailable [phone] Nitza Lopez RN Unavailable [email or web address] Encounter Details Date Type Department Care Team (Late st Contact Info) Description 06/28/2021 Procedure Pass [facility], Ct Scan - [address] [address] Social History Tobacco Use Types Packs/Day Years [...] 6:54 PM EST Ariadne Merino, JESUS * [place] Suicide Severity Rating Scale (Screener/Recent Self-Report) Question [...] Description 06/18/2025 10:00 AM EST Office Visit [facility] [address] [place] [address] 3rd Floor, [address] [place] [address] Castillo Valles MD [address] [place] [address] 09/21/2025 1:00 PM EDT Office Visit [facility] Orthopedics & Sports Medicine [address] [place] [address] Radha Daly MD [address] [place] [address] Orthopedics & Sports Medicine, [place] [address] [email or web address] 12/01/2025 3:40 PM EDT Office Visit [facility] Internal Medicine [address] [place] [address] Darwin Montanez MD [address] [place] [address] [email or web address] documented as of this encounter Visit Diagnoses Not on filedocumented in this encounter Additional Health Concerns Assessment Noted Time PHQ-2 Depression Total Score: 1 07/06/20 19 2:52 PM EST documented as of this encounter Care Teams Observation Assistant Relationship Specialty Start Date End Date Darwin Montanez MD [address] [place] [address] [email or web address] PCP - General 04/23/17 Yoli Murray, JAI [address] [place] [address] [email or web address] Historical LMR Provider 04/22/17 Aaliyah Garg, MATILDE [address] [place] [address] [email or web address] Historical LMR Provider 04/22/17 Darwin Montanez MD [address] [place] [address] [email or web address] Historical LMR Provider 04/22/17 Jaden Boles MD Historical LMR Provider 04/22/17 07/15/21 Darwin Montanez MD [address] [place] [address] [email or web address] Insurance Assigned Provider 10/12/23 Nitza Lopez, JESUS [address] [place] [address] [email or web address] PHCM Tie Cutter 02/18/2403/25 documented as of this encounter Additional Source Comments The information contained in this document represents components of the legal health record. It is not the complete legal health record.[facility]
--- OUTSIDE RECORDS SUMMARY | 2025-06-09 17:04 | XMS_ITS | Encounter Summary ---
Author Organization [facility] Address [address] [facility] [address] [place] [address] Phone Care Team Providers Care Breed To Wean Production Technician Name Role Phone Yoli Murray RECREATIONAL LEADER Unavailable [phone] Aaliyah Garg JOB DEVELOPER FOR DEAF ADULTS Unavailable [phone] Darwin Montanez MD Unavailable [phone] Jaden Boles MD Unavailable Unavailable Darwin Montanez MD Primary Care Provider [phone] Darwin Montanez MD Unavailable [phone] Nitza Lopez RN Unavailable [email or web address] Encounter Details Date Type Department Care Team (Late st Contact Info) Description 06/28/2021 Procedure Pass [facility] [address] [place] [address] Social History Tobacco Use Types Packs/Day Years [...] 6:54 PM EST Ariadne Merino, JESUS * [place] Suicide Severity Rating Scale (Screener/Recent Self-Report) Question Answer Date of Assessment Author 1. Wish to be (Past 1 Month) No 06/28/2021 6:54 PM EST Ariadne Merino, JESUS 2. Non-Specific Active Suici zack Thoughts (Past 1 Month) No 06/28/2021 6:54 PM Ariadne Perla, JESUS 6. Suicidal Behavior (Lifetime) No 6:54 PM EST Ariadne Merino, RN documented as of this encounter Plan of Treatment Upcoming Encounters Date Type Department Care Team (Late st Contact Info) Description 06/18/2025 10:00 AM EST Office Visit [facility] [address] [place] [address] 3rd Floor, [address] [place] [address] Castillo Valles MD [address] [place] [address] 09/21/2025 1:00 PM EDT Office Visit [facility] Orthopedics & Sports Medicine [address] [place] [address] Radha Daly MD [address] [place] [address] Orthopedics & Sports [place], [place] [address] 12/01/2025 3:40 PM EDT Office Visit [facility] Internal Medicine [address] [place] [address] Darwin Montanez MD [address] [place] [address] documented as of this encounter Visit Diagnoses Not on filedocumented in this encounter Additional Health Concerns Assessment Noted Time PHQ-2 Depression Total Score: 1 07/06/20 19 2:52 PM EST documented as of this encounter Care Teams Breed To Wean Production Technician Relationship Specialty Start Date End Date Darwin Montanez MD [address] [place] [address] PCP - General 04/23/17 Yoli Murray, JAI [address] [place] [address] [place] [address] [email or web address] Historical LMR Provider 04/22/17 Aaliyah Garg, MATILDE [address] [place] [address] [email or web address] Historical LMR Provider 04/22/17 Darwin Montanez MD [address] [place] [address] [email or web address] Historical LMR Provider 04/22/17 Jaden Boles MD Historical LMR Provider 04/22/17 07/15/21 Darwin Montanez MD [address] [place] [address] [email or web address] Insurance Assigned Provider 10/12/23 Nitza Lopez, JESUS [address] [place] [address] [email or web address] PHCM Inventory Analyst 02/18/2403/25 documented as of this encounter Additional Source Comments The information contained in this document represents components of the legal health record. It is not the complete legal health record.[facility]
--- OUTSIDE RECORDS SUMMARY | 2025-06-09 17:04 | XMS_ITS | Encounter Summary ---
Author Organization [facility] Address [address] [facility] [address] [place] [address] Phone Care Team Providers Care Principal Strategist Name Role Phone Yoli Murray Ann SUPERVISOR BROADLOOM Unavailable [phone] Aaliyah Garg PROPERTY ADMINISTRATOR Unavailable [phone] Darwin Montanez MD Unavailable Darwin Montanez MD Primary Care Provider [phone] Darwin Montanez MD Unavailable Reason for Visit * Reason Onset Date Comments Triage 05/19/2025 Thumb, burning t ingling ,loss of mobility in wrist on left hand Encounter Details Date Type Department Care Team (Late st Contact Info) Description 05/19/[address] [address] Darwin Montanez MD [address] [place] [address] [place] [address] [email or web address] Triage (Thumb, burning tingling ,loss of mobility in wrist on left hand) Social History Tobacco Use Types Packs/Day Years [...] as of this encounter Progress Notes * Breonna Yang RN - 05/19/2025 10:01 AM EST Call made to patient to review Symptoms started last Saturday They came on suddenly with no injury noted It is his left thumb into the wrist There is no redness, change in color or temperature He has feeling in the thumb but its definitely less than normal Very sensitive to touch Appointment scheduled for tomorrow * Mariah Fernandez - 05/19/2025 9:52 AM EST [facility] PEN Top Smart Phrases: Complete the Following for ALL Patient Symptoms [facility] [place] Yellow Green Tool Call Back Number: (& caller's name if not the patient) [phone] Description of Symptoms: What symptoms are you experiencing? Thumb, burning tingling ,loss of mobility in wrist on left hand When did the symptoms start? Past week Has this happened before? Yes - ongoing (worsening) 1) Enter the Reason for Call (TRIAGE) & RFC Comment (COLOR + Symptom) (Ex: TRIAGE - YELLOW, tick bite ) 2) Select the color-based designation below before taking next steps & documenting the outcome Red Call Designation & Outcome Red Symptom(s): Triage (Thumb, burning tingling ,loss of mobility in wrist on left hand) Call Warm Transferred & TE Routed High Priority to Nurse: nurse DO NOT DISCONNECT THE CALL Warm transfer live call to the Triage Team & Route TE HIGH Priority to the Individual Performing Triage documented in this encounter Plan of Treatment Upcoming Encounters Date Type Department Care Team (Late st Contact Info) Description 06/18/2025 10:00 AM EST Office Visit [facility] [address] [facility] 3rd Floor, [address] [place], [place] [phone] Castillo Valles MD [address] [place] [address] 09/21/2025 1:00 PM EDT Office Visit [facility] Orthopedics & Sports Medicine [address] [place] [address] Radha Daly MD [address] [facility] Orthopedics & Sports Medicine, [place] [address] 12/01/2025 3:40 PM EDT Office Visit [facility] Internal Medicine [address] [address] Darwin Montanez MD [address] [address] [email or web address] documented as of this encounter Visit Diagnoses Not on filedocumented in this encounter Additional Health Concerns Assessment Noted Time PHQ-9 Depression Total Score: 2 07/04/20 23 12:49 PM EST PHQ-2 Depression Total Score: 0 11/24/19 25 3:36 PM EDT documented as of this encounter Care Teams Principal Strategist Relationship Specialty Start Date End Date Darwin Montanez MD [address] [place] [address] PCP - General 04/23/17 Yoli Murray NP [address] [place] [address] [email or web address] Historical LMR Provider 04/22/17 Aaliyah Garg CNP [address] [place] [address] [email or web address] Historical LMR Provider 04/22/17 Darwin Montanez MD [address] [place] [address] Historical LMR Provider 04/22/17 Darwin Montanez MD [address] [place] [address] [address] [place] [address] [email or web address] Insurance Assigned Provider 10/12/23 documented as of this encounter Additional Source Comments The information contained in this document represents components of the legal health record. It is not the complete legal health record.[facility]
--- OUTSIDE RECORDS SUMMARY | 2025-06-09 17:04 | XMS_ITS | Encounter Summary ---
Author Organization [facility] Address [address] [facility] [address] [place] [address] Phone Care Team Providers Care Wood [employer] Wood Products Factory Worker Name Role Phone Yoli Murray TRANSMISSIONS SYSTEMS OPERATOR Unavailable [phone] Aaliyah Garg FARM MACHINE TENDER Unavailable [phone] Darwin Montanez MD Unavailable [phone] Jaden Boles MD Unavailable Unavailable Darwin Montanez MD Primary Care Provider [phone] Darwin Montanez MD Unavailable [phone] Nitza Lopez RN Unavailable [email or web address] Encounter Details Date Type Department Care Team (Late st Contact Info) Description 06/28/2021 Procedure Pass [address] [address] Social History Tobacco Use Types Packs/Day Years [...] 6:54 PM EST Ariadne Merino, JESUS * [place] Suicide Severity Rating Scale (Screener/Recent Self-Report) Question [...] Description 06/18/2025 10:00 AM EST Office Visit [facility] [address] [place] [address] 3rd Floor, [address] [place] [address] Castillo Valles MD [address] [place] [address] 09/21/2025 1:00 PM EDT Office Visit [facility] Orthopedics & Sports Medicine [address] [place] [address] Radha Daly MD [address] [place] [address] Orthopedics & Sports Medicine, [place] [address] [email or web address] 12/01/2025 3:40 PM EDT Office Visit [facility] Internal Medicine [address] [place] [address] Darwin Montanez MD [address] [place] [address] [email or web address] documented as of this encounter Visit Diagnoses Not on filedocumented in this encounter Additional Health Concerns Assessment Noted Time PHQ-2 Depression Total Score: 1 07/06/20 19 2:52 PM EST documented as of this encounter Care Teams Wood [employer] Wood Products Factory Worker Relationship Specialty Start Date End Date Darwin Montanez MD [address] [place] [address] [email or web address] PCP - General 04/23/17 Yoli Murray, JAI [address] [place] [address] [email or web address] Historical LMR Provider 04/22/17 Aaliyah Garg, MATILDE [address] [place] [address] [email or web address] Historical LMR Provider 04/22/17 Darwin Montanez MD [address] [place] [address] [email or web address] Historical LMR Provider 04/22/17 Jaden Boles MD Historical LMR Provider 04/22/17 07/15/21 Darwin Montanez MD [address] [place] [address] [email or web address] Insurance Assigned Provider 10/12/23 Nitza Lopez, JESUS [address] [place] [address] [email or web address] PHCM Treating And Pumping Supervisor 02/18/2403/25 documented as of this encounter Additional Source Comments The information contained in this document represents components of the legal health record. It is not the complete legal health record.[facility]
--- OUTSIDE RECORDS SUMMARY | 2025-06-09 17:04 | XMS_ITS | Encounter Summary ---
Author Organization [facility] Address [address] [facility] [address] [place] [address] Phone Care Team Providers Care Regulatory Affairs Specialist Name Role Phone Murray [place] CUSTOMER SERVICE ENGINEER Unavailable [phone] Aaliyah Garg MANUFACTURING TECH Unavailable [phone] Darwin Montanez MD Unavailable [phone] Darwin Montanez MD Primary Care Provider [phone] Darwin Montanez MD Unavailable [phone] Nitza Lopez RN Unavailable [email or web address] Encounter Details Date Type Department Care Team (Late st Contact Info) Description 02/13/2022 Procedure Pass [facility], [address] [address] Social History Tobacco Use Types Packs/Day Years [...] Description 06/18/2025 10:00 AM EST Office Visit [facility] [address] [place] [address] 3rd Floor, [address] [place] [address] Castillo Valles MD [address] [place] [address] 09/21/2025 1:00 PM EDT Office Visit [facility] Orthopedics & Sports Medicine [address] [place] [address] Radha Daly MD [address] [place] [address] Orthopedics & Sports [facility], [place] [address] 12/01/2025 3:40 PM EDT Office Visit [facility] Internal Medicine [address] [place] [address] Darwin Montanez MD [address] [place] [address] [email or web address] documented as of this encounter Visit Diagnoses Not on filedocumented in this encounter Additional Health Concerns Assessment Noted Time PHQ-2 Depression Total Score: 1 07/06/20 19 2:52 PM EST documented as of this encounter Care Teams Regulatory Affairs Specialist Relationship Specialty Start Date End Date Darwin Montanez MD [address] [place] [address] PCP - General 04/23/17 Yoli Murray NP [address] [place] [address] Historical LMR Provider 04/22/17 Aaliyah Garg CNP [address] [place] [address] [email or web address] Historical LMR Provider 04/22/17 Darwin Montanez MD [address] [place] [address] [address] [place] [address] [email or web address] Historical LMR Provider 04/22/17 Darwin Montanez MD [address] [place] [address] [address] [place] [address] [email or web address] Insurance Assigned Provider 10/12/23 Nitza Lopez RN [address] [facility] [address] [place] [address] [email or web address] Cigar Making Supervisor 02/18/2403/25 documented as of this encounter Additional Source Comments The information contained in this document represents components of the legal health record. It is not the complete legal health record.[facility]
--- OUTSIDE RECORDS SUMMARY | 2025-06-09 17:04 | XMS_ITS | Encounter Summary ---
Author Organization [facility] Address [address] [facility] [address] [place] [address] Phone Care Team Providers Care Studio Operations Manager Name Role Phone Yoli Murray INVESTIGATION DIVISION CAPTAIN Unavailable [phone] Aaliyah Garg TELEPHONE APPOINTMENT CLERK Unavailable [phone] Darwin Montanez MD Unavailable [phone] Darwin Montanez MD Primary Care Provider [phone] Darwin Montanez MD Unavailable [phone] Encounter Details Date Type Department Care Team (Late st Contact Info) Description 11/13/2024 Procedure Pass [facility] Admitting Dept Virtual Department [address] [place] [address] [phone] Social History Tobacco Use Types Packs/Day Years [...] Description 06/18/2025 10:00 AM EST Office Visit [facility] [address] [place] [address] 3rd Floor, [address] [place] [address] Castillo Valles MD [address] [place] [address] 09/21/2025 1:00 PM EDT Office Visit [facility] Orth[facility]ics & Sports Medicine [address] [place] [address] Radha Daly MD [address] [place] [address] Orthopedics & Sports Medicine, [facility] [place] [place] [address] 12/01/2025 3:40 PM EDT Office Visit [facility] Internal Medicine 14 [facility] [address] [place] [address] Darwin Montanez MD [address] [address] documented as of this encounter Visit Diagnoses Not on filedocumented in this encounter Additional Health Concerns Assessment Noted Time PHQ-9 Depression Total Score: 2 07/04/20 23 12:49 PM EST PHQ-2 Depression Total Score: 0 11/14/19 24 10:20 AM EDT documented as of this encounter Care Teams Studio Operations Manager Relationship Specialty Start Date End Date Darwin Montanez MD [address] [place] [address] PCP - General 04/23/17 Yoli Murray, JAI [address] [place] [address] Historical LMR Provider 04/22/17 Aaliyah Garg, TELEPHONE APPOINTMENT CLERK [address] [place] [address] Historical LMR Provider 04/22/17 Darwin Montanez MD [address] [place] [address] 04366 Historical LMR Provider 04/22/17 Darwin Montanez MD [address] [place] [address] 41716 Insurance Assigned Provider 10/12/23 documented as of this encounter Additional Source Comments The information contained in this document represents components of the legal health record. It is not the complete legal health record.[facility]
--- OUTSIDE RECORDS SUMMARY | 2025-06-09 17:04 | XMS_ITS | Encounter Summary ---
Author Organization [facility] Address [address] [place] [address] [place] [address] Phone Care Team Providers Care Furnace Combustion Analyst Name Role Phone Yoli Murray MICRO LAB ANALYST Unavailable [phone] Aaliyah Garg ADDRESS CHANGE CLERK Unavailable [phone] Darwin Montanez MD Unavailable [phone] Jaden Boles MD Unavailable Unavailable Darwin Montanez MD Primary Care Provider [phone] Darwin Montanez MD Unavailable [phone] Nitza Lopez RN Unavailable [email or web address] Encounter Details Date Type Department Care Team (Late st Contact Info) Description 01/30/2019 Procedure Pass [facility], [address] [address] Social History Tobacco Use Types Packs/Day Years [...] Description 06/18/2025 10:00 AM EST Office Visit [facility] [address] [place] [address] 3rd Floor, [address] [place] [address] Castillo Valles MD [address] [place] [address] 09/21/2025 1:00 PM EDT Office Visit [facility] Orthopedics & Sports Medicine [address] [place] [address] Radha Daly MD [address] [place] [address] Orthopedics & Sports Medicine, [place] [address] 12/01/2025 3:40 PM EDT Office Visit [facility] Internal Medicine [address] [place] [address] Darwin Montanez MD [address] [place] [address] documented as of this encounter Visit Diagnoses Not on filedocumented in this encounter Additional Health Concerns Infection Onset Date Last Indicated Resolved Time CoV-Risk 03/08/2020 03/09/2020 03/22/2020 1:24 AM EDT documented as of this encounter Care Teams Furnace Combustion Analyst Relationship Specialty Start Date End Date Darwin Montanez MD [address] [place] [address] PCP - General 04/23/17 Yoli Murray NP [address] [place] [address] Historical LMR Provider 04/22/17 Aaliyah Garg, MATILDE [address] [place] [address] Historical LMR Provider 04/22/17 Darwin Montanez MD [address] [place] [address] [place] [address] [email or web address] Historical LMR Provider 04/22/17 Jaden Boles MD Historical LMR Provider 04/22/17 07/15/21 Darwin Montanez MD [address] [place] [address] [place] [address] [email or web address] Insurance Assigned Provider 10/12/23 Nitza Lopez RN [address] [place] [address] [email or web address] Crepe Sole Scourer 02/18/2403/25 documented as of this encounter Additional Source Comments The information contained in this document represents components of the legal health record. It is not the complete legal health record.[facility]
--- OUTSIDE RECORDS SUMMARY | 2025-06-09 17:04 | XMS_ITS | Encounter Summary ---
Author Organization [facility] Address [address] [facility] [place] [address] Phone Care Team Providers Care Artificial Limb Maker Name Role Phone Murray [place] WIRE ROPE FABRICATION SUPERVISOR Unavailable [phone] Aaliyah Garg UNIT CONTROL CLERK Unavailable [phone] Darwin Montanez MD Unavailable Darwin Montanez MD Primary Care Provider [phone] Darwin Montanez MD Unavailable Nitza Lopez RN Unavailable [email or web address] Encounter Details Date Type Department Care Team (Late st Contact Info) Description 03/11/2024 Telephone [facility] 14 [facility] [address] [place] [address] Darwin Montanez MD 14 [facility] [address] [place], [place] [phone] [email or web address] Social History Tobacco Use Types Packs/Day Years [...] Description 06/18/2025 10:00 AM EST Office Visit [facility] [address] 3rd Floor, [address] [place] [address] Castillo Valles MD [address] [place] [address] 09/21/2025 1:00 PM EDT Office Visit [facility] Orthopedics & Sports Medicine [address] [place] [address] Radha Daly MD [address] [place] [address] Orthopedics & Sports Medicine, [facility] [place] [address] 12/01/2025 3:40 PM EDT Office Visit [facility] Internal Medicine [address] [place] [address] [phone] Darwin Montanez MD [address] [address] documented as of this encounter Visit Diagnoses Not on filedocumented in this encounter Additional Health Concerns Assessment Noted Time PHQ-9 Depression Total Score: 2 07/04/20 23 12:49 PM EST PHQ-2 Depression Total Score: 0 11/14/19 24 10:20 AM EDT documented as of this encounter Care Teams Artificial Limb Maker Relationship Specialty Start Date End Date Darwin Montanez MD [address] [place] [address] PCP - General 04/23/17 Yoli Murray, JAI [address] [place] [address] Historical LMR Provider 04/22/17 Aaliyah Garg, MATILDE [address] [place] [address] Historical LMR Provider 04/22/17 Darwin Montanez MD [address] [place] [address] Historical LMR Provider 04/22/17 Darwin Montanez MD [address] [place] [address] Insurance Assigned Provider 10/12/23 Nitza Lopez RN [address] [place] [address] [email or web address] Food Mixer Repairer 02/18/2403/25 documented as of this encounter Additional Source Comments The information contained in this document represents components of the legal health record. It is not the complete legal health record.[facility]
--- OUTSIDE RECORDS SUMMARY | 2025-06-09 17:04 | XMS_ITS | Encounter Summary ---
Author Organization [facility] Address [address] [facility] [address] [place] [address] Phone Care Team Providers Care Station Tender Name Role Phone [place] [facility]AC[facility] AIDE Unavailable [phone] Aaliyah Garg UX DEVELOPER Unavailable [phone] Darwin Montanez MD Unavailable [phone] Jaden Boles MD Unavailable Unavailable Darwin Montanez MD Primary Care Provider [phone] Darwin Montanez MD Unavailable [phone] Nitza Lopez RN Unavailable [email or web address] Encounter Details Date Type Department Care Team (Late st Contact Info) Description 05/10/2021 Procedure Pass [facility] [address] [place], [place] [phone] Social History Tobacco Use Types Packs/Day Years [...] Description 06/18/2025 10:00 AM EST Office Visit [facility] [address] 3rd Floor, [address] [place], [place] [phone] Castillo Valles MD [address] [place] [address] 09/21/2025 1:00 PM EDT Office Visit [facility] Medicine [address] [place] [address] Radha Daly MD [address] [place] [address] Orthopedics & Sports [place], [place] [address] 12/01/2025 3:40 PM EDT Office Visit [facility] Internal Medicine [address] [place] [address] Darwin Montanez MD [address] [place] [address] [email or web address] documented as of this encounter Visit Diagnoses Not on filedocumented in this encounter Additional Health Concerns Assessment Noted Time PHQ-2 Depression Total Score: 1 07/06/20 19 2:52 PM EST documented as of this encounter Care Teams Station Tender Relationship Specialty Start Date End Date Darwin Montanez MD [address] [place] [address] PCP - General 04/23/17 Yoli Murray NP [address] [place] [address] [email or web address] Historical LMR Provider 04/22/17 Aaliyah Garg CNP [address] [place] [address] [email or web address] Historical LMR Provider 04/22/17 Darwin Montanez MD [address] [place] [address] [place] [address] [email or web address] Historical LMR Provider 04/22/17 Jaden Boles MD Historical LMR Provider 04/22/17 07/15/21 Darwin Montanez MD [address] [place] [address] [email or web address] Insurance Assigned Provider 10/12/23 Nitza Lopez RN [address] [place] [address] [email or web address] Auditor 02/18/2403/25 documented as of this encounter Additional Source Comments The information contained in this document represents components of the legal health record. It is not the complete legal health record.[facility]
--- OUTSIDE RECORDS SUMMARY | 2025-06-09 17:04 | XMS_ITS | Encounter Summary ---
Author Organization [facility] Address [address] [place] [address] [place] [address] Phone Care Team Providers Care Farm Crops Teacher Name Role Phone Yoli Murray INSURANCE REPRESENTATIVE Unavailable [phone] Aaliyah Garg INFORMATICS PHARMACIST Unavailable [phone] Darwin Montanez MD Unavailable [phone] Jaden Boles MD Unavailable Unavailable Darwin Montanez MD Primary Care Provider [phone] Darwin Montanez MD Unavailable [phone] Nitza Lopez RN Unavailable [email or web address] Reason for Referral * MRI/CAT Scan - Closed Specialty Diagnoses / Procedures Referred By Chaya montez Referred To Contact Radiology Diagnoses Lumbar radiculopathy Procedures MRI Lumbar Spine Santos Lee DO Phone: tel: fax: [email or web address] Referral ID Status Reason Start Date Expiration Date Visits Re quested Visits Authorized [id number] Closed 01/29/2019 02/28/2019 1 1 Encounter Details Date Type Department Care Team (Latest Contact Info) Description 01/30/2019 Ancillary Orders [facility] [address] [place] [address] Santos Lee DO [address] [place] [address] [email or web address] Lumbar radiculopathy Social History Tobacco Use Types [...] Description 06/18/2025 10:00 AM EST Office Visit [facility] [address] [place] [address] 3rd Floor, [address] [place] [address] Castillo Valles MD [address] [place] [address] 09/21/2025 1:00 PM EDT Office Visit [facility] Orthopedics & Sports Medicine [address] [place] [address] Radha Daly MD [address] [place] [address] Orthopedics & Sports Medicine, [facility] [place] [address] 12/01/2025 3:40 PM EDT Office Visit [facility] Internal Medicine [address] [address] Darwin Montanez MD [address] [address] documented as of this encounter Results * [...] prior CT study in 2011. POS - [id number] Narrative 02/09/2019 7:01 PM EDT EXAM: MRI [...] Vertebral body heights are maintained. T1 and A2zibyrkfrgvse signal involving most of the L5 vertebral [...] also demonstrated in the prior CT study [id number]. POS - [id number] Santos Lee DO IMG MR XSPECIALTY Final Resu lt documented in this encounter Visit Diagnoses Diagnosis Lumbar radiculopathy Thoracic or lumbosacral neuritis or radiculitis, unspecified Lumbar radiculopathy Thoracic or lumbosacral neuritis or radiculitis, unspecified documented in this encounter Additional Health Concerns Infection Onset Date Last Indicated Resolved Time CoV-Risk 03/08/2020 03/09/2020 03/22/2020 1:24 AM EDT documented as of this encounter Care Teams Farm Crops Teacher Relationship Specialty Start Date End Date Darwin Montanez MD [address] [place] [address] [address] [place] [address] [email or web address] PCP - General 04/23/17 Yoli Murray NP [address] [place] [address] [place] [address] [email or web address] Historical LMR Provider 04/22/17 Aaliyah Garg CNP [address] [place] [address] [place] [address] Historical LMR Provider 04/22/17 Darwin Montanez MD [address] [place] [address] [email or web address] Historical LMR Provider 04/22/17 Jaden Boles MD Historical LMR Provider 04/22/17 07/15/21 Darwin Montanez MD [address] [place] [address] [email or web address] Insurance Assigned Provider 10/12/23 Nitza Lopez RN [address] [place] [address] [email or web address] [email or web address] 02/18/2403/25 documented as of this encounter Additional Source Comments The information contained in this document represents components of the legal health record. It is not the complete legal health record.[facility]
--- OUTSIDE RECORDS SUMMARY | 2025-06-09 17:04 | XMS_ITS | Encounter Summary ---
Author Organization [facility] Address [address] [place] [address] [place] [address] Phone Care Team Providers Care Reports Analyst Name Role Phone Yoli Murray DRY DIP WORKER Unavailable [phone] Aaliyah Garg AUTOMAT WATCHER Unavailable [phone] Darwin Montanez MD Unavailable [phone] Darwin Montanez MD Primary Care Provider [phone] Darwin Montanez MD Unavailable [phone] Nitza Lopez RN Unavailable [email or web address] Encounter Details Date Type Department Care Team (Late Contact Info) Description 11/01/2022 Procedure Pass [facility] Cardiovascular And Interventional Radiology 30 [place] [address] Social History Tobacco Use Types Packs/Day Years [...] Department Care Team (Late Contact Info) Description 06/18/2025 10:00 AM EST Office Visit [facility] 22 [facility] 3rd Floor, [address] [place] [address] Castillo Valles MD 50 [place] [address] 09/21/2025 1:00 PM EDT Office Visit [facility] Orthopedics & Sports Medicine [address] [place] [address] Radha Daly MD [address] [place] [address] Orthopedics & Sports Medicine, [place] [address] 12/01/2025 3:40 PM EDT Office Visit [facility] Internal Medicine [address] [address] Darwin Montanez MD [address] [place] [address] documented as of this encounter Visit Diagnoses Not on filedocumented in this encounter Additional Health Concerns Assessment Noted Time PHQ-2 Depression Total Score: 1 07/06/20 19 2:52 PM EST documented as of this encounter Care Teams Reports Analyst Relationship Specialty Start Date End Date Darwin Montanez MD [address] [place] [address] PCP - General 04/23/17 Yoli Murray NP [address] [place] [address] Historical LMR Provider 04/22/17 Aaliyah Garg, MATILDE [address] [place] [address] [email or web address] Historical LMR Provider 04/22/17 Darwin Montanze MD [address] [place] [address] [place] [address] [email or web address] Historical LMR Provider 04/22/17 Darwin Montanez MD [address] [place] [address] [place] [address] [email or web address] Insurance Assigned Provider 10/12/23 Nitza Lopez RN [address] [place] [address] [email or web address] Business Technology Teacher 02/18/2403/25 documented as of this encounter Additional Source Comments The information contained in this document represents components of the legal health record. It is not the complete legal health record.[facility]
--- OUTSIDE RECORDS SUMMARY | 2025-06-09 17:04 | XMS_ITS | Encounter Summary ---
Author Organization [facility] Address [address] [facility] [address] [place] [address] Phone Care Team Providers Care Entry Level Machine Operator Name Role Phone Yoli Murray VOCATIONAL TECHNICAL EDUCATION DIRECTOR Unavailable [phone] Aaliyah Garg TOP LIFT COMPRESSOR Unavailable [phone] Darwin Montanez MD Unavailable [phone] Darwin Montanez MD Primary Care Provider [phone] Darwin Montanez MD Unavailable [phone] Nitza Lopez RN Unavailable [email or web address] Encounter Details Date Type Department Care Team (Late st Contact Info) Description 04/10/2023 Procedure Pass [facility] [address] [place] [address] Social History Tobacco Use Types [...] Description 06/18/2025 10:00 AM EST Office Visit [facility] [address] [place] [address] 3rd Floor, [address] [place] [address] Castillo Valles MD [address] [place] [address] 09/21/2025 1:00 PM EDT Office Visit [facility] Orthopedics & Sports Medicine [address] [place] [address] Radha Daly MD [address] [place] [address] Orthopedics & Sports Medicine, [place] [address] 12/01/2025 3:40 PM EDT Office Visit [facility] Internal Medicine 14 [facility] [address] [address] Darwin Montanez MD [address] [place] [address] documented as of this encounter Visit Diagnoses Not on filedocumented in this encounter Additional Health Concerns Assessment Noted Time PHQ-9 Depression Total Score: 2 07/04/20 23 12:49 PM EST PHQ-2 Depression Total Score: 0 11/14/19 24 10:20 AM EDT documented as of this encounter Care Teams Entry Level Machine Operator Relationship Specialty Start Date End Date Darwin Montanez MD [address] [place] [address] PCP - General 04/23/17 Yoli Murray NP [address] [place] [address] [address] [email or web address] Historical LMR Provider 04/22/17 Aaliyah Garg CNP [address] [place] [address] [email or web address] Historical LMR Provider 04/22/17 Darwin Montanez MD [address] [place] [address] [email or web address] Historical LMR Provider 04/22/17 Darwin Montanez MD [address] [place] [address] [email or web address] Insurance Assigned Provider 10/12/23 Nitza Lopez RN [address] [place] [address] [email or web address] Customs [email or web address] Border Protection Inspector 02/18/2403/25 documented as of this encounter Additional Source Comments The information contained in this document represents components of the legal health record. It is not the complete legal health record.[facility]
--- OUTSIDE RECORDS SUMMARY | 2025-06-09 17:04 | XMS_ITS | Clinical Summary ---
Author Organization [facility] Address [address] [facility] [address] [place] [address] Phone Care Team Providers Care Customer Supply Coordinator Name Role Phone MurrayYoli gilman Ann BEAN WEIGHER Unavailable [phone] Aaliyah Garg OLIVE KNOCKER Unavailable [phone] Bijan Daley MD Unavailable [phone] Bijan Daley MD Primary Care Provider [phone] Bijan Daley MD Unavailable [phone] Allergies No known active allergies Medications omeprazole (PRILOSEC) 20 mg TbEC Take 1 tablet by mouth daily. Active aspirin 81 mg chewable tablet Take 1 tablet (81 mg total) by mouth daily. 1 Active lisinopril (PRINIVIL,ZESTRI L) 40 MG tabletIndication s:Essential hypertension TAKE ONE TABLET BY MOUTH EVERY DAY 90 tablet 3 5 Active allopurinol (ZYLOPRIM) 100 MG tabletIndication s:Gout, unspecified cause, unspecified chronicity, unspecified site Take 2 tablets (200 mg total) by mouth daily. 180 tablet 3 5 Active chlorthalidone (HYGROTON) 25 MG tabletIndication s:Essential hypertension TAKE ONE TABLET BY MOUTH EVERY DAY 90 tablet 3 5 Active Additional Information Patient taking differently: 12.5 mgOral Every morning, Reported on 05/20/2025 atorvastatin (LIPITOR) 80 MG tabletIndication s:Hypercholester olemia TAKE ONE TABLET BY MOUTH AT BEDTIME 90 tablet 5 Active diclofenac sodium (VOLTAREN) 50 MG EC tabletIndication s:Acute pain of left wrist Take 1 tablet (50 mg total) by mouth 2 (two) times a day for 10 days. 20 tablet 5 Active Hospital, Clinic, or Other Facility [...] Encounters Date Type Department Care Team Description 06/01/2025 9:26 AM EST - 06/01/2025 11:59 PM EST Hospital Encounter Echo Lab [address] [place] [id number] Castillo Valles MD Discharge Disposition: Home or Self Care 05/20/2025 2:20 PM EST Office Visit [facility] [address] [place] [address] Bijan Daley MD Acute pain of left wrist (Primary Dx) 05/19/2025 Telephone [facility] [address] [place] [address] Bijan Daley MD Triage (Thumb, burning tingling ,loss of mobility in wrist on left hand) 04/12/2025 Refill [facility] [address] [place] [address] Bijan Daley MD Medication Refill (Atorvastatin) 04/01/2025 Orders Only [facility] [address] [facility] [address] [place] [address] Provider, MD Narda 05/22/2024 Procedure Pass Echo Lab [address] [place] [id number] from Last 3 Months Immunizations Immunization Administration [...] Sign Reading Time Taken Comments Blood Pressure 120/74 05/20/2025 2:31 PM EST Pulse 60 05/20/2025 2:31 PM EST Temperature 36.6 C (97.8 F) 05/20/2025 2:31 PM EST Respiratory Rate 22 11/13/2024 10:3 6 AM EDT Oxygen Saturation 97% 05/20/2025 2:31 PM EST Inhaled Oxygen Concentration - - Weight 103.6 kg (228 lb 6.4 oz) 05/20/2025 2:31 PM EST Height 177.8 cm (5' 10 ) 11/23/2024 3:49 PM EDT Body Mass Index 32.77 11/23/2024 3:49 PM EDT Plan of Treatment Upcoming Encounters Date Type Department Care Team (Late st Contact Info) Description 06/18/2025 10:00 AM EST Office Visit [facility] [address] [place] [address] 3rd Floor, [address] [place] [address] Castillo Valles MD [address] [place] [address] 09/21/2025 1:00 PM EDT Office Visit [facility] [address] [place] [address] Radha Daly MD [address] [place] [address] Orthopedics & Sports Medicine, [facility] [place] [address] 12/01/2025 3:40 PM EDT Office Visit [facility] [address] [place] [address] Bijan Daley MD 14 [facility] [address] [place] [address] [email or web address] Health Maintenance Due Date Last Done Comments SMOKING Hx and SMOKELESS TOBACCO SCREENING 1966 COLOGUARD 1998 FIT TEST 1998 FOBT 1998 SIGMOIDOSCOPY 1998 VIRTUAL COLONOSCOPY 1998 PNEUMOCOCCAL VACCINES (50+ years) (1 of 1 - PCV) 2003 ABDOMINAL AORTIC ANEURYSM (AAA) SCREENING 2018 ZOSTER VACCINES (2 of 2) 10/13/2021 08/18/2021 INFLUENZA VACCINE (#1) 2025 , 06/14/2022, 06/29/2021, Additional history exists COVID-19 VACCINE ( - season) 2025 06/14/2022, 01/24/2022, 07/05/2021, Additional history exists BLOOD PRESSURE 11/17/2025 05/20/2025 CREATININE LEVEL 11/17/2025 11/17/2024, , 04/15/2023, Additional history exists POTASSIUM LEVEL 11/17/2025 11/17/2024, 01/05, 04/15/2023, Additional history exists DEPRESSION SCREENING 11/23/2025 11/23/2024, 07/04/20 23 COLONOSCOPY 11/14/2027 11/13/2024, 04/01/2009 COLORECTAL CANCER SCREENING 11/14/2027 RSV VACCINE (1 - 1-dose 75+ series) 2028 LIPID PANEL 01/21/2029 01/22/2024, 10/07, 10/29/2022, Additional history exists Adult Td,Tdap Booster 11/29/2032 11/29/2022 , 05/06/2014, 06/05/2005 HEPATITIS C SCREENING Completed 10/29/2022, 023 HEPATITIS [...] this topic Medical Devices Implanted Type Area Environmental Studies Faculty Member Device Identifier Shelf Expiration Date Model / Serial / Lot Aortic Health Valve Procedures Procedure Name Priority Date/Time Associated Diagnosis Comments TTE COMPREHENSIVE Routine 06/01/2025 10: 20 AM EST History of transcatheter aortic valve replacement (TAVR) OUTSIDE PROCEDURE Routine 04/01/2025 8:3 7 AM EDT BASIC METABOLIC PANEL (BMP) Routine 11/17/2024 9:44 AM EDT Essential hypertension [...] Recently Relevant to Health Maintenance Results * TTE COMPREHENSIVE (06/01/2025 10:20 AM EST) Height 178 cm Weight 104 kg Interventricular Septum Thickness 12 6 - 11 mm Left Ventricle Internal Diameter End Diastole 45 42 - 58 mm Left Ventricle Internal Diameter End Systole 23 <40 mm Left Ventricular Outflow Tract Diameter 21.0 mm Left Ventricular Posterior Wall Thickness 11 6 - 11 mm Left Ventricle Ea Lateral Wave Speed 8.0 cm/s Left Ventricle Ea Septal Wave Speed 7.2 cm/s Ejection Fraction 86 50 - 75 Percent Left Atrium Dimension Anterior-Posterior 42 15 - 40 mm Aortic Valve Mean Gradient 12 mmHg Aortic Valve Time Velocity Integral 464.0 mm Aortic Valve Peak Velocity 2.3 m/s Aortic Valve Peak Gradient 22 mmHg Aortic Arch Diameter 29 mm Aortic Sinus Diameter 33 <40 mm Ascending Aorta Diameter 38 <36 mm Inferior Vena Cava Diameter 17 <21 mm Mitral Valve Deceleration Time 222 ms Left Ventricle A Wave Speed 102.0 cm/s Left Ventricle E Wave Speed 77.1 cm/s Pulmonary Valve Peak Velocity 1.3 m/s Pulmonary Valve Peak Gradient 7 mmHg Right Ventricle Basal Diameter 42 25 - 41 mm Raw LV EF% 74 % MV E/E' Tissue Velocity Lateral 9.64 Relative Wall Thickness 0.49 0.22 - 0.42 MV E/A ratio 0.8 MV E/e' septal 10.71 Left Ventricle E/e' Average 10.2 Aortic Valve Prosthetic Peak Gradient 22 mmHg Aortic Valve Prosthetic Mean Gradient 12 mmHg Aorta Sinus Index by Height 1.85 cm/m Aorta Sinus CSA index by Height 4.80 cm2/m Asc Aorta CSA Index by Height 6.37 cm2/m Pulmonic Valve Prosthetic Peak Gradient 7 mmHg Echo E/Ea 10.71 Body Surface Area 2.21 m2 Left Ventricle indexed to BSA 84.3 g/m2 Aortic Valve Sinus Index by BSA 15 mm/m2 Ascending Aorta Index 17 mm/m2 Ascending Aorta Index 17 mm Aortic Sinus Index 15 mm Ascending Aorta Diameter 17 mm Aortic Valve Sinus Index 1 15 20 - 32 mm AO ASC DIAM BSA INDEX 17.19 Anatomical Region Laterality Modality Heart Ultrasound Narrative 06/02/2025 7:59 AM EST Images from the original result were not included. 1. The indication is post aortic valve replacement. The ejection fraction of the left ventricle is normal at 60 to 65%. Diastolic function is normal there is mild concentric LVH and regional wall motion is normal. 2. Normal RV size and function. 3. There is a 26 mm MARIOLA 3 stent Mouded valve in the aortic position the mean gradient is unchanged at 12 mmHg the ascending aortic root is normal size. There is no significant paravalvular leak. 4. Trace mitral and trace tricuspid sufficiency, the PA pressure is normal. 5. Normal pericardium when compared to the prior echo done a little over a year ago, there is no change. Left Ventricle The left ventricle is normal in size. There is mild concentric hypertrophy. There is normal left ventricular systolic function. The LV ejection fraction is 60-65% (visually estimated). LV diastolic function appears within normal limits for age. Right Ventricle The right ventricle is normal in size. There is normal right ventricular systolic function. Left Atrium The left atrium is normal in size. Right Atrium The right atrium is normal in size. The IVC is normal in size with normal inspiratory collapse. Mitral Valve There is mitral valve thickening. There is mitral annular calcification. There is no mitral stenosis. There is trace mitral regurgitation. Tricuspid Valve The tricuspid valve appears normal. There is no tricuspid stenosis. There is trace tricuspid regurgitation. Aortic Valve There is a 26mm Mariola 3 Ultra stent mounted bioprosthesis (TAVR). The aortic valve peak velocity is 2.3 m/s. The peak and mean aortic valve gradients are 22 mmHg and 12 mmHg respectively. There is no aortic regurgitation. The visualized portions of the thoracic aorta appear normal in size. Pulmonic Valve The pulmonic valve appears normal. There is no pulmonic stenosis. There is trace pulmonic regurgitation. Pericardium There is no pericardial effusion. General Findings The image quality was fair (3). Technique(s) used in the evaluation: Multiplane, Color flow Doppler, Spectral Doppler and Epiaortic scan. Comparison Findings Compared to prior TTE report on 04/13/2024, IAS/IVS The interatrial septum appears normal. There is no evidence of patent foramen ovale (PFO). The interventricular septum appears normal. Castillo Valles MD CV ECHO ORDERABLES Final Result * Outside Procedure (04/01/2025 8:37 AM EDT) Historical Provider PROCEDURE/MINOR SURGICAL PERFORMABLES Final Result * (ABNORMAL) Basic metabolic panel (11/17/2024 9:44 AM EDT) SODIUM 137 133 - 146 mmol/L [facility] CHLORIDE 99 96 - 108 mmol/L [facility] POTASSIUM 3.6 3.3 - 5.1 mmol/L [facility] Comment:Specimen slightly he molyzed, result may be falsely elevated. CO2 23 21 - 35 mmol/L [facility] BUN 29(H) 6 - 19 mg/dL [facility] CREATININE 1.10 0.5 - 1.5 mg/dL [facility] GLUCOSE 99 70 - 99 mg/dL [facility] CALCIUM 9.7 8.4 - 10.3 mg/dL [facility] EGFR 72 >59 mL/min/1.7 3m2 [facility] Comment:Estimated glomerular filtration rate calculated using the CKD-EPI refit equation. ANION GAP 19 10 - 20 mmol/L [facility] Blood 11/17/2024 9:44 AM EDT 11/17/2024 9:57 AM EDT us Bijan Daley MD LAB BLOOD BKR ORDERABLES Fin al Result [address] [address] * ENDOSCOPY, COLON (11/13/2024 9:59 AM EDT) Narrative Transcriptions Ishaan Reardon MD - 11/13/2024 9:59 AM EDT [facility] Patient Name: Brennon Ren Attending MD:: ISHAAN REARDON MD, Procedure Date: 11/13/2024 9:59 AM Date of : 1955 Age: 69 Admit Type: Outpatient Gender: Male Room: [facility] Referring MD: BIJAN DALEY MD Exam Type: [...] monitored continuously. The Olympus adult variable colonoscope [id number] #4 was introduced through the anus and [...] 9:59 AM Procedure Code(s): --- Professional --- 34005, Colonoscopy, flexible; with removal of tumor(s), polyp(s), or other lesion(s) by snare technique --- Technical --- 45988, Colonoscopy, flexible; with removal of tumor(s), polyp(s), [...] or abscess without bleeding CPT copyright 2021 [employer]. All rights reserved. The codes documented in this report are preliminary and upon strap maker reviewmay be revised to meet current compliance requirements. Procedure Date: 11/13/2024 9:59:39 AM [address] [place] [address] us Bijan Daley MD GI PROCEDURE ORDERABLES Modesta l Result * Lipid panel (01/22/2024 9:48 AM EDT) HDL 50 mg/dL [facility] Comment: Interpretation <40 mg/dL: Low HDL cholesterol (major risk factor for CHD) Greater than or equal to 60 mg/dL: High HDL cholesterol ( negative risk factor for CHD) HDL - cholesterol is affected by a number of factors, e.g. smoking, excerise, hormones, sex and age. CHOLESTEROL 170 0 - 240 mg/dL [facility] TRIGLYCERIDES 141 30 - 160 mg/dL [facility] LDL 92 50 - 129 mg/dL [facility] Comment: LDL levels in terms of risk for coronary heart disease: <100 mg/dL: Optimal 100-129 mg/dL: Near or above optimal 130-159 mg/dL: Borderline high 160-189 mg/dL: High >190 mg/dL: Very High CARDIAC RISK RATIO 3.4 3.4 - 5.0 [facility] Blood 01/22/2024 9:48 AM EDT 01/22/2024 9:58 AM EDT Bijan Daley MD LAB BLOOD BKR ORDERABLES Fin al Result [address] [address] * Hepatitis C antibody, qualitative (10/29/2022 8:23 AM EDT) HCV NON-REACTIV E NON-REACTI VE [facility] Blood 10/29/2022 8:23 AM EDT 10/29/2022 8:31 AM EDT Aaliyah Garg CNP LAB BLOOD BKR ORDERABL ES Final Result Performing Organization Address [facility]/ZIP Co de Phone Number [address] [phone] from Last 3 Months or Most Recently Relevant to Health Maintenance Insurance [facility] [place] [address] [place] [address] [facility] Advance Directives For more information, please contact: [phone] (9AM - 5PM [facility], Saturday-Saturday) * Full Code (Latest Code Status on File) Date Activated Date Inactivated Comments 06/28/2021 6:05 PM Question Answer Comments Code Status Confirmed With: Patient Care Teams Customer Supply Coordinator Relationship Specialty Start Date End Date Bijan Daley MD [address] [place] [address] [place] [address] [email or web address] PCP - General 04/23/17 Yoli Murray NP [address] [place] [address] [place] [address] [email or web address] Historical LMR Provider 04/22/17 Aaliyah Garg CNP [address] [place] [address] [place] [address] [email or web address] Historical LMR Provider 04/22/17 Bijan Daley MD [address] [place] [address] [place] [address] [email or web address] Historical LMR Provider 04/22/17 Bijan Daley MD [address] [place] [address] [address] [place] [address] [email or web address] Insurance Assigned Provider 10/12/23 Additional Source Comments The information contained in this document represents components of the legal health record. It is not the complete legal health record.[facility]
--- OUTSIDE RECORDS SUMMARY | 2025-06-09 17:04 | XMS_ITS | Encounter Summary ---
Author Organization [facility] Address [address] [facility] [address] [place] [address] Phone Care Team Providers Care Gaming Associate Name Role Phone Yoli Murray Ann DRYING RACK CHANGER Unavailable [phone] Aaliyah Garg COMMUNICATIONS ASSISTANT Unavailable [phone] Darwin Montanez MD Unavailable [phone] Darwin Montanez MD Primary Care Provider [phone] Darwin Montanez MD Unavailable [phone] Nitza Lopez RN Unavailable [email or web address] Encounter Details Date Type Department Care Team (Late st Contact Info) Description 03/30/2022 Procedure Pass Echo Lab [address] [place] [address] Social History Tobacco Use Types [...] Description 06/18/2025 10:00 AM EST Office Visit [facility] [address] 3rd Floor, [address] [place], [place] [phone] Castillo Valles MD [address] [place] [address] 09/21/2025 1:00 PM EDT Office Visit [facility] [address] [place] [address] Radha Daly MD [address] [place] [address] Orthopedics & Sports Medicine, [place] [address] [email or web address] 12/01/2025 3:40 PM EDT Office Visit [facility] [address] [address] Darwin Montanez MD [address] [place] [address] [email or web address] documented as of this encounter Visit Diagnoses Not on filedocumented in this encounter Additional Health Concerns Assessment Noted Time PHQ-2 Depression Total Score: 1 07/06/20 19 2:52 PM EST documented as of this encounter Care Teams Gaming Associate Relationship Specialty Start Date End Date Darwin Montanez MD [address] [place] [address] PCP - General 04/23/17 Yoli Murray NP [address] [place] [address] Historical LMR Provider 04/22/17 Aaliyah Garg CNP [address] [place] [address] Historical LMR Provider 04/22/17 Darwin Montanez MD [address] [place], [place] [address], [place] [address] [email or web address] Historical LMR Provider 04/22/17 Darwin Montanez MD [address] [place] [address] [address] [place] [address] [email or web address] Insurance Assigned Provider 10/12/23 Nitza Lopez RN 14 [facility] [address] [place] [address] [email or web address] 02/18/2403/25 documented as of this encounter Additional Source Comments The information contained in this document represents components of the legal health record. It is not the complete legal health record.[facility]
== END 2025-06-09 15:06 | disposition home or self-care (01) ==
LOC: HO.HNS 14:14
PROVIDERS: PCP Internal Medicine; Visit Provider Physician Assistant
DX: Z98.890 Other specified postprocedural states (principal)
CPT/HCPCS: 99024